=== PATIENT | male | born 1965 | race Hispanic/Latino ===

== ENCOUNTER 2016-09-28 14:57 | Inpatient (IN) | payer MEDICARE, OTHER ==
--- NOTE | 2016-09-28 15:40 | C.PDOC ---
History Of Present Illness 51 y/o male presents to the ED requesting heroin detox. 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 Pt has been using for the past couple years 10-15 bags per day. Last use was this am. Denies pmhx with exception of orthopedic surgeries. Denies fever, vomiting, chest pain, SOB or any other complaints. Time Seen by Provider: 09/28/16 15:10 Chief Complaint (Nursing): Substance Abuse History Per: Patient History/Exam Limitations: no limitations Suicide/Self Injury Attempted (Context): None Modifying Factor(s): Narcotics Severity: Mild Involuntary Hold By: None Recent travel outside of the [place]: No Past Medical History Reviewed: Historical Data, Nursing Documentation, Vital Signs Vital Signs: Last Vital Signs Temp 97.5 F L 09/28/16 15:05 Pulse 71 09/28/16 15:05 Resp 16 09/28/16 15:05 BP 143/76 09/28/16 15:05 Pulse Ox 97 09/28/16 17:33 Family History: States: Unknown Family Hx - Social History Hx Alcohol Use: No Hx Substance Use: Yes - Immunization History Hx Tetanus Toxoid Vaccination: No Hx Influenza Vaccination: No Hx Pneumococcal Vaccination: No Review Of Systems Except As Marked, All Systems Reviewed And Found Negative. Constitutional: Negative for: Fever Cardiovascular: Negative for: Chest Pain Respiratory: Negative for: Shortness of Breath Gastrointestinal: Negative for: Vomiting Physical Exam - Physical Exam Appears: Non-toxic, No Acute Distress Skin: Warm, Dry, No Rash Head: Atraumatic, Normacephalic Nose: Normal Neck: Normal ROM, Supple Chest: Symmetrical Cardiovascular: Rhythm Regular, No Murmur Respiratory: Normal Breath Sounds, No Rales, No Rhonchi, No Wheezing Gastrointestinal/Abdominal: Soft Extremity: Bilateral: Atraumatic Neurological/Psych: Oriented x3 ED Course And Treatment - Laboratory Results Result Diagrams: 09/28/16 15:44 09/28/16 15:44 Lab Interpretation: Normal O2 Sat by Pulse Oximetry: 97 (on room air) Pulse Ox Interpretation: Normal Progress Note: Plan: labs, UDS; medically clear for detox admission. Case discussed and patient evaluated by crisis who discussed with Dr Calle and accepts for detox Reassessment Condition: Unchanged - Physician Consult Information Physician Contacted: Linette Calle Outcome Of Conversation: admit to detox Disposition Doctor Will See Patient In The: Hospital Counseled Patient/Family Regarding: Studies Performed, Diagnosis, Need For Followup - Disposition Disposition: HOSPITALIZED Disposition Time: 17:50 Condition: STABLE - POA Present On Arrival: None - Clinical Impression Clinical Impression: Drug abuse, Opioid abuse with opioid-induced disorder - PA / SAMPLE COLLECTOR / Resident Statement MD/DO has reviewed & agrees with the documentation as recorded. - Scribe Statement The provider has reviewed the documentation as recorded by the Abdiazizibsuhas Mistry All medical record entries made by the Abdiazizibsuhas were at my direction and personally dictated by me. I have reviewed the chart and agree that the record accurately reflects my personal performance of the history, physical exam, medical decision making, and the department course for this patient. I have also personally directed, reviewed, and agree with the discharge instructions and disposition. Decision To Admit - Pt Status Changed To: Hospital Disposition Of: Inpatient - Admit Certification Admit to Inpatient:: After my assessment, the patient will require hospitalization for at least two midnights. This is because of the severity of symptoms shown, intensity of services needed, and/or the medical risk in this patient being treated as an outpatient. - InPatient: Physician Admission Certification: I certify that this patient requires 2 or more midnights of care for the following reason:: Opioid abuse disorder - . Bed Request Type: Detox Admitting Physician: Linette Calle Patient Diagnosis: Drug abuse
[2016-09-28 15:41] LABS: URINE BILIRUBIN NEGATIVE (NEGATIVE); URINE BLOOD NEGATIVE (NEGATIVE); URINE COLOR Yellow (YELLOW); URINE GLUCOSE (UA) NORMAL (Normal); URINE KETONE NEGATIVE (NEGATIVE); URINE LEUKOCYTE ESTERASE NEG Leu/uL (Negative); URINE PROTEIN NEGATIVE (NEGATIVE); URINE UROBILINOGEN NORMAL mg/dL (0.2-1.0); WBC URINE 2 /hpf (0-5)
[2016-09-28 15:47] LABS: BASO # 0.1 K/uL (0.0-0.2); BASO % 1.1 % (0.0-2.0); EOS # 0.2 K/uL (0.0-0.7); EOS % 2.5 % (0.0-4.0); HEMATOCRIT 45.5 % (35.0-51.0); LYMPH # 2.5 K/uL (1.0-4.3); LYMPH % 25.3 % (20.0-40.0); MEAN CELL VOLUME 89.9 fL (80.0-94.0); MEAN CORPUSCULAR HEMOGLOBIN 30.4 pg (27.0-31.0); MEAN CORPUSCULAR HGB CONC 33.8 g/dL (33.0-37.0); MEAN PLATELET VOLUME 8.2 fL (7.2-11.7); MONO # 0.8 K/uL (0.0-0.8); MONO % 7.7 % (0.0-10.0); NRBC % 0.2 % (0.0-2.0); RED CELL DISTRIBUTION WIDTH 14.3 % (11.5-14.5); WHITE BLOOD COUNT 10.1 K/uL (4.8-10.8)
[2016-09-28 15:55] LABS: CHLORIDE 97 mmol/L (98-107); POTASSIUM 3.8 mmol/L (3.6-5.2); SODIUM 138 mmol/L (132-148)
[2016-09-28 15:57] LABS: BILIRUBIN,TOTAL 0.6 mg/dL (0.2-1.3); GFR AFRICAN-AMERICAN > 60
[2016-09-28 15:58] LABS: ALB/GLOB RATIO 1.2 (1.0-2.1); ALKALINE PHOSPHATASE 66 U/L (38-126); ALT/SGPT 31 U/L (21-72); AST/SGOT 24 U/L (17-59); BLOOD UREA NITROGEN 24 mg/dL (9-20); CALCIUM 8.7 mg/dl (8.6-10.4); CARBON DIOXIDE 26 mmol/L (22-30); GLUCOSE,RANDOM 108 mg/dL (75-110); TOTAL PROTEIN 7.8 g/dL (6.3-8.3)
[2016-09-28 15:59] LABS: ALCOHOL SERUM < 10 mg/dl (0-10)
[2016-09-28] MEDS ORDERED: Buprenorphine Hydrochloride 2 mg SL ONE ×2 (19:15→20:40)
[2016-09-28] MEDS ORDERED: Aluminum Hydroxide/Magnesium Hydroxide Susp (30 mL) PO PRN (19:16)
[2016-09-28] MEDS ORDERED: Benzocaine/Menthol (Cepacol) Lozenge PO PRN (23:08)
[2016-09-29] MEDS ORDERED: Buprenorphine Hydrochloride 2 mg SL SCH (10:00)
--- NOTE | 2016-09-29 11:10 | PCM.PSYCH ---
Initial Psychiatric Evaluation - Initial Psychiatric Evaluation Type of Admission: Voluntary Legal Status: Capacity Chief Complaint (in patient's own words): "Not feeling well" History of Present Illness and Precipitating Events: The patient is seen, chart reviewed and case discussed. This is a 51-year-old male, with 3 children aged 34, 27 and 14 who is with his mother. The patient is on disability since 2009 due to an accident. He had hip replacement and shoulder replacement. He lives with his fiance. He admits to using up to 16 bags of heroin intravenously for the last 2 years. Before that he was abusing painkillers since 2009. This is his first detox and he has never been to rehabilitation. He denies all other drugs except for cigarettes which she smokes 1 pack per day. 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 He goes to . Past psych history: He had one admission in 2004 after his divorce when he OD' ed. He says he is still depressed as he sleeps poorly and feels low. However, he denies Si and he has no manic or psychotic sxs. Family psych history: Sister uses opioids and she is depressed. His brother OD' ed and from alcohol pills and cocaine. Medical history: Pain syndrome Current Medications: Active Medications Generic Name Dose Route Start Last Admin Trade Name Bernabe PRN Reason Stop Dose Admin Acetaminophen 650 mg 09/28/16 23:08 Tylenol 325mg Tab PO Q4H PRN Fever greater than 101 F Al Hydrox/Mg Hydrox/Simethicone 30 ml 09/28/16 19:16 Maalox 30 Ml PO Q6 PRN Indigestion / Heartburn Benzocaine/Menthol 1 milton 09/28/16 23:08 Cepacol Sore Throat PO QID PRN Sore Throat Buprenorphine HCl 6 mg 09/29/16 10:00 09/29/16 09:24 Subutex SL 10/02/16 09:59 6 mg DAILY MORENA Administration Taper Clonidine HCl 0.1 mg 09/28/16 19:19 Catapres PO Q8 PRN opiate withdrawal Hydroxyzine HCl 25 mg 09/28/16 19:20 Atarax PO Q6 PRN Anxiety Ibuprofen 600 mg 09/28/16 19:17 Motrin Tab PO Q6 PRN pain Loperamide HCl 2 mg 09/28/16 23:08 Imodium PO Q8 PRN Diarrhea Nicotine 1 patch 09/29/16 10:00 09/29/16 09:24 Nicoderm Cq TD Not Given DAILY MORENA Ondansetron HCl 4 mg 09/28/16 23:08 Zofran Tab PO Q8 PRN Nausea/Vomiting Trazodone HCl 50 mg 09/28/16 19:18 Desyrel PO HS PRN insomnia Past Psychiatric History - Past Psychiatric History Previous Treatment History: Inpatient Pertinent Medical Hx (Current Medical&Sleep Prob, Allergies): Allergies Allergy/AdvReac Type Severity Reaction Status Date / Time No Known Allergies Allergy Verified 09/28/16 15:07 No Known Home Med 09/28/16 Review of Systems - Neurological Neurological: UNREMARKABLE - Psychiatric Psychiatric: Abnormal Sleep Pattern, Anhedonia, Anxiety, Depression, Difficulty Concentrating. absent: Auditory Hallucinations, Hallucinations, Homicidal Ideation, Paranoia, Suicidal Ideation Mental Status Examination - Personal Presentation Personal Presentation: Looks older than stated age - Affect Affect: Constricted - Motor Activity Motor Activity: Calm - Reliability in Providing Information Reliability in Providing Information: Good - Speech Speech: Organized - Mood Mood: Depressed, Anxious - Formal Thought Process Formal Thought Process: No Impairment - Cognitive Functions Orientation: Person, Place, Situation, Time Sensorium: Alert Attention/Concentration: Attentive Estimate of Intelligence: Average Judgement: Intact, as evidence by: Insight regarding need for hospitalization Memory: Recent intact, as evidence by: Ability to recall events of the day, Remote intact, as evidenced by: Abilit to recall sig. life events - Risk Risk: Withdrawal, Diminished functioning - Strength & Assets Inventory Strength & Assets Inventory: Cooperative - Limitations Limitations: Living alone DSM 5 DX - DSM 5 DSM 5 Diagnosis: Primary: OPioid withdrawal Opioid use d/o -sveere Nicotine use d/o - severe MDD - recurrent, moderate - Recommended/Plan of Treatment Treatment Recommendations and Plan of Treatment: Opioids: -Subutex detox -As needed medications -Support and psychoeducation -PR for abstinence -Attend groups and activities Depression: -Cymbalta which also helps pain -CBT and supportive therapy Nicotine: -Patient refusing patch -PR for abstinence 34 minutes Projected ELOS: 5 days Prognosis: Good with treatment Discharge Plan and Discharge Criteria: No wdw sxs refer to IOP - Smoking Cessation Smoking Cessation Initiated: Yes
[2016-09-29] MEDS ORDERED: Buprenorphine Hydrochloride 2 mg SL ONE (11:15)
[2016-09-30] MEDS: Buprenorphine Hydrochloride 2 mg SL SCH (10:01)
--- NOTE | 2016-09-30 13:06 | PCM.PYCHPN ---
Psychiatric Progress Note - Psychiatric Progress Note Patient seen today, length of contact: 17 min Patient Chief Complaint: still having withdrawal symptoms Problems Identified/Issues Discussed: Patient seen and evaluated, chart reviewed and discussed with the nurse. The patient reports depressed mood and still reports withdrawal symptoms including anxiety, sweating, back pain and headaches. Patient reports anxiety and irritability but denies any suicidal ideation or homicidal ideation. Patient is taking medications and denies any side effects. Supportive therapy and psychoeducation were given. Medication Change: Yes (Subutex taper) Medical Record Reviewed: Yes Mental Status Examination - Cognitive Function Orientation: Person, Place, Situation, Time Memory: Intact Attention: WNL Concentration: Poor Association: WNL Fund of Knowledge: Poor - Mood Mood: Depressed, Anxious - Affect Affect: Constricted - Speech Speech: Soft - Formal Thought Process Formal Thought Process: No Impairment - Suicidal Ideation Suicidal Ideation: No - Homicidal Ideation Homicidal Ideation: No Goal/Treatment Plan - Goal/Treatment Plan Need for Continued Stay: Discharge may exacerbated symptoms, Severe functional impairment Progress Toward Problem(s) and Goals/Treatment Plan: Primary: OPioid withdrawal Opioid use d/o -sveere Nicotine use d/o - severe MDD - recurrent, moderate Opioids: -Subutex detox -As needed medications -Support and psychoeducation -NC for abstinence -Attend groups and activities Depression: -Cymbalta which also helps pain -CBT and supportive therapy Nicotine: -Patient refusing patch -NC for abstinence - Smoking Cessation Smoking Cessation Initiated: Yes
[2016-10-01] MEDS ORDERED: Magnesium Hydroxide Susp 30 ml UD PO ONE (08:45)
[2016-10-01] MEDS: Buprenorphine Hydrochloride 2 mg SL SCH (09:36)
[2016-10-01] MEDS ORDERED: Bisacodyl 5mg EC Tab PO ONE (12:12)
--- NOTE | 2016-10-01 12:15 | PCM.PYCHPN ---
Psychiatric Progress Note - Psychiatric Progress Note Patient seen today, length of contact: 15 minutes Patient Chief Complaint: I'm feeling much better but I have constipation. Problems Identified/Issues Discussed: Patient seen. Chart reviewed. Case discussed with the staff. Issues related to illness and treatment were discussed with the patient. Patient reported compliant with treatment with no adverse affects. Tolerating treatment very well. Feels much better. Reported having constipation. At the time of evaluation , patient was awake alert oriented 3, had no delusions, no auditory or visual hallucinations, no suicidal ideations or homicidal ideations. Medical Problems: None Diagnostic Results: Reviewed DSM 5 Symptoms Update: Improving with treatment Medication Change: No Medical Record Reviewed: Yes Mental Status Examination - Cognitive Function Orientation: Person, Place, Situation, Time Memory: Intact Attention: WNL Concentration: WNL Association: WNL Fund of Knowledge: [facility] Decription of patient's judgement and insights: Fair - Mood Mood: Neutral - Affect Affect: Other (Appropriate) - Speech Speech: Appropriate - Formal Thought Process Formal Thought Process: No Impairment Psychotic Thoughts and Behaviors: None - Suicidal Ideation Suicidal Ideation: No - Homicidal Ideation Homicidal Ideation: No Goal/Treatment Plan - Goal/Treatment Plan Need for Continued Stay: Remain at risks for inpatient hospitalization, Discharge may exacerbated symptoms, Severe functional impairment Progress Toward Problem(s) and Goals/Treatment Plan: Improving with treatment Patient education Supportive therapy Continue treatment as before Dulcolax for constipation Estimated Date of D/C: 10/03/16 - Smoking Cessation Smoking Cessation Initiated: Yes
[2016-10-02] MEDS: Buprenorphine Hydrochloride 2 mg SL SCH (09:07)
[2016-10-02] MEDS ORDERED: Magnesium Hydroxide Susp 30 ml UD PO ONE ×2 (16:14)
[2016-10-02] MEDS ORDERED: Bisacodyl 5mg EC Tab PO ONE (16:14)
--- NOTE | 2016-10-02 16:14 | PCM.PYCHPN ---
Psychiatric Progress Note - Psychiatric Progress Note Patient seen today, length of contact: 15 minutes Patient Chief Complaint: I'm feeling much better but I still have constipation. Problems Identified/Issues Discussed: Patient seen. Chart reviewed. Case discussed with the staff. Issues related to illness and treatment were discussed with the patient. Patient reported compliant with treatment with no adverse affects. Tolerating treatment very well. Feels much better. Reported still having constipation. Will repeat the dose again today. At the time of evaluation, patient was awake alert oriented 3 , had no delusions, no auditory or visual hallucinations, no suicidal ideations or homicidal ideations. Medical Problems: None Diagnostic Results: Reviewed DSM 5 Symptoms Update: Improving with treatment Medication Change: No Medical Record Reviewed: Yes Mental Status Examination - Cognitive Function Orientation: Person, Place, Situation, Time Memory: Intact Attention: WNL Concentration: WNL Association: WNL Fund of Knowledge: [facility] Decription of patient's judgement and insights: Fair - Mood Mood: Neutral - Affect Affect: Other (Appropriate) - Speech Speech: Appropriate - Formal Thought Process Formal Thought Process: No Impairment Psychotic Thoughts and Behaviors: None - Suicidal Ideation Suicidal Ideation: No - Homicidal Ideation Homicidal Ideation: No Goal/Treatment Plan - Goal/Treatment Plan Need for Continued Stay: Remain at risks for inpatient hospitalization, Discharge may exacerbated symptoms, Severe functional impairment Progress Toward Problem(s) and Goals/Treatment Plan: Improving with treatment Patient education Supportive therapy Continue treatment as before Dulcolax for constipation Also milk of magnesia Estimated Date of D/C: 10/03/16 - Smoking Cessation Smoking Cessation Initiated: Yes
[2016-10-02 19:50] VITALS: RESP 18
[2016-10-02] MEDS ORDERED: Magnesium Citrate Oral SOL (300 ml) PO ONE (20:25)
[2016-10-03 06:07] VITALS: BP 123/78; PULSE 56; TEMP 98.1; O2SAT 98
--- NOTE | 2016-10-03 11:34 | PCM.PYCHDC ---
Mental Status Examination - Mental Status Examination Orientation: Person, Place, Situation, Time Memory: Intact Mood: Neutral Affect: Other (Appropriate) Speech: Appropriate Attention: WNL Concentration: WNL Association: WNL Fund of Knowledge: WNL Formal Thought Process: No Impairment Description of patient's judgement and insight: Fair Psychotic Thoughts and Behaviors: None Suicidal Ideation: No Current Homicidal Ideation?: No Discharge Summary - Discharge Note Reason for Hospitalization: Opiate use Depression Psychiatric History (includes Medical, Family, Personal Hx): Opiate use, major depressive disorder Laboratory Data: Reviewed Consultations:: List each consultation separately and include: 1. Reason for request. 2. Findings. 3. Follow-up Summary of Hospital Course include:: 1. Description of specific treatment plan utilized for patients during their course of treatmen. 2. Summarize the time- course for resolution of acute symptoms and/or regressed behaviors. 3. Describe issues identified and worked on during hospitalization. 4. Describe medication utilized. 5. Describe medical problems identified and treated. 6. Reassessment of suicide risk Summary of Hospital Course: The patient is seen, chart reviewed and case discussed. This is a 51-year-old male, with 3 children aged 34, 27 and 14 who is with his mother. The patient is on disability since 2009 due to an accident. He had hip replacement and shoulder replacement. He lives with his fiance. He admits to using up to 16 bags of heroin intravenously for the last 2 years. Before that he was abusing painkillers since 2009. This is his first detox and he has never been to rehabilitation. He denies all other drugs except for cigarettes which she smokes 1 pack per day. 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 He goes to . Past psych history: He had one admission in 2004 after his divorce when he OD' ed. He says he is still depressed as he sleeps poorly and feels low. However, he denies Si and he has no manic or psychotic sxs. During his stay in the hospital, patient was treated with Subutex and other when necessary medications. Patient was also started on Cymbalta and trazodone. With the above treatment patient started feeling better with no adverse affects of the treatment and no withdrawal symptoms. Today patient was stable and was ready for discharge. At the time of evaluation and discharge, patient was awake alert oriented 3, had no delusions, no auditory or visual hallucinations, no suicidal ideations or homicidal ideations. Patient was discharged in a stable condition. Patient will go to [facility] outpatient clinic for follow-up care. - Final Diagnosis (DSM 5) Condition upon Discharge: STABLE Disposition: HOME/ ROUTINE Follow-up Treatment Plan: Patient will go to [facility] outpatient for follow-up care Prescriptions/Medication Reconciliation: DULoxetine [Cymbalta] 30 mg PO DAILY #30 ecc traZODone [Desyrel] 100 mg PO HS PRN #30 tab PRN Reason: insomnia - Smoking Cessation Smoking Cessation Medication prescribed: No - Antipsychotic Medications Pt discharged on 2 or more routine antipsychotic medications: No
== END 2016-10-03 08:07 | disposition home or self-care (01) | DRG 895 ==
LOC: C.ER 14:57 → C.7D 17:31
PROVIDERS: ADMIT Psychiatry & Neurology Psychiatry; ATTEND Psychiatry & Neurology Psychiatry
PROC: HZ2ZZZZ Detoxification Services for Substance Abuse Treatment (ICD-10-PCS; principal; 2016-09-28)
PROC: HZ46ZZZ Group Counseling for Substance Abuse Treatment, Psychoeducation (ICD-10-PCS; 2016-09-28)
PROC: GZ3ZZZZ Medication Management (ICD-10-PCS; 2016-09-28)
DX: F11.23 Opioid dependence with withdrawal (principal); F33.1 Major depressive disorder, recurrent, moderate; F17.210 Nicotine dependence, cigarettes, uncomplicated; G89.4 Chronic pain syndrome; Z96.619 Presence of unspecified artificial shoulder joint; Z96.649 Presence of unspecified artificial hip joint

== ENCOUNTER 2017-08-18 15:43 | Inpatient (IN) | payer MEDICARE ==
[2017-08-18] MEDS ORDERED: Sodium Chloride 0.9% 1,000 ML IV STA (17:14)
--- NOTE | 2017-08-18 17:15 | C.PDOC ---
History Of Present Illness 52 year old male presents to ED for evaluation of left 2nd toe pain, and swelling after stubbing his left foot 3 weeks ago. Denies change in sensation, extremity weakness, numbness, or fever. Time Seen by Provider: 08/18/17 16:46 Chief Complaint (Nursing): Lower Extremity Problem/Injury History Per: Patient History/Exam Limitations: no limitations Onset/Duration Of Symptoms: Days Current Symptoms Are (Timing): Still Present Recent travel outside of the [place]: No Additional History Per: Patient Past Medical History Reviewed: Historical Data, Nursing Documentation, Vital Signs Vital Signs: Last Vital Signs Temp 98 F 08/18/17 16:15 Pulse 75 08/18/17 16:15 Resp 18 08/18/17 16:15 BP 112/75 08/18/17 16:15 Pulse Ox 98 08/18/17 18:08 - Medical History PMH: Denies: Diabetes, Hepatitis, HIV, HTN, Seizures, Sexually Transmitted Disease - [facility] Procedures DETOXIFICATION SERVICES FOR SUBSTANCE ABUSE TREATMENT (09/28/16) GROUP WORKDAY MANAGER FOR SUBSTANCE ABUSE TREATMENT, PSYCHOEDUCATION (09/28/16) MEDICATION MANAGEMENT (09/28/16) Family History: States: Unknown Family Hx - Social History Hx Alcohol Use: No Hx Substance Use: Yes - Immunization History Hx Tetanus Toxoid Vaccination: No Hx Influenza Vaccination: No Hx Pneumococcal Vaccination: No Review Of Systems Except As Marked, All Systems Reviewed And Found Negative. Constitutional: Negative for: Fever, Chills Musculoskeletal: Positive for: Foot Pain (left) Neurological: Negative for: Weakness, Numbness Physical Exam - Physical Exam Appears: Non-toxic, No Acute Distress, Unkempt Skin: Warm, Dry Head: Atraumatic, Normacephalic Eye(s): bilateral: Normal Inspection Oral Mucosa: Moist Extremity: Normal ROM, Tenderness (left 2nd toe), Capillary Refill (less than 2 seconds), No Deformity, Swelling (left 2nd toe), Other (open ulcer to distal phalanx of left 2nd toe with erythema and swelling, and also noted dirt) Pulses: Left Dorsalis Pedis: Normal, Right Dorsalis Pedis: Normal Neurological/Psych: Oriented x3, Normal Speech ED Course And Treatment - Laboratory Results Result Diagrams: 08/18/17 17:59 08/18/17 17:59 O2 Sat by Pulse Oximetry: 98 (RA) Pulse Ox Interpretation: Normal - Radiology CXR: Interpreted by Me CXR Interpretation: Yes: No Acute Disease - Other Rad left foot X-Ray: Interpreted by Me Interpretation: distal phalanx of the left 2nd toe with bone distraction consitant with Osteomyelitis. Progress Note: Blood work, UA, left foot x-ray, CXR ordered and reviewed. Pt was given IV fluids and Vanco IV. case was d/w who covers for 's patients. Patient was accepted for an admission. 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 - Scribe Statement The provider has reviewed the documentation as recorded by the Scribe Jn Newton All medical record entries made by the Scribe were at my direction and personally dictated by me. I have reviewed the chart and agree that the record accurately reflects my personal performance of the history, physical exam, medical decision making, and the department course for this patient. I have also personally directed, reviewed, and agree with the discharge instructions and disposition. Decision To Admit - Pt Status Changed To: Hospital Disposition Of: Inpatient - Admit Certification Admit to Inpatient:: After my assessment, the patient will require hospitalization for at least two midnights. This is because of the severity of symptoms shown, intensity of services needed, and/or the medical risk in this patient being treated as an outpatient. - InPatient: Physician Admission Certification: I certify that this patient requires 2 or more midnights of care for the following reason:: Patient will need IV antibiotics for more than 2 days. - . Bed Request Type: Regular Patient Diagnosis: Foot ulcer, left, Osteomyelitis of toe of left foot
[2017-08-18 18:02] LABS: BASO % 0.5 % (0.0-2.0); EOS # 0.1 K/uL (0.0-0.7); EOS % 1.4 % (0.0-4.0); HEMOGLOBIN 14.6 g/dL (12.0-18.0); LYMPH # 1.6 K/uL (1.0-4.3); LYMPH % 17.7 % (20.0-40.0); MEAN CELL VOLUME 89.4 fL (80.0-94.0); MEAN CORPUSCULAR HEMOGLOBIN 30.9 pg (27.0-31.0); MEAN CORPUSCULAR HGB CONC 34.6 g/dL (33.0-37.0); MEAN PLATELET VOLUME 8.5 fL (7.2-11.7); MONO # 0.5 K/uL (0.0-0.8); MONO % 5.1 % (0.0-10.0); NEUT # 6.7 K/uL (1.8-7.0); NEUT % 75.3 % (50.0-75.0); RBC 4.73 Mil/uL (4.40-5.90); RED CELL DISTRIBUTION WIDTH 14.4 % (11.5-14.5); WHITE BLOOD COUNT 8.9 K/uL (4.8-10.8)
[2017-08-18] MEDS ORDERED: Vancomycin 1 GM 1 GM/250 ML BAG IV STA (18:09)
[2017-08-18 18:12] LABS: INR 1.2; PROTHROMBIN TIME 13.2 SECONDS (9.7-12.2)
--- NOTE | 2017-08-18 18:14 | RAD ---
PROCEDURE: CHEST RADIOGRAPH, 1 VIEW HISTORY: infection COMPARISON: None. FINDINGS: LUNGS: No active pulmonary disease. Multiple tiny granuloma identified. PLEURA: No pneumothorax or pleural fluid seen. CARDIOVASCULAR: Normal. OSSEOUS STRUCTURES: No significant abnormalities. VISUALIZED UPPER ABDOMEN: Normal. OTHER FINDINGS: None. IMPRESSION: No active disease.
[2017-08-18 18:15] LABS: ALB/GLOB RATIO 1.1 (1.0-2.1); ALBUMIN 3.8 g/dL (3.5-5.0); ALT/SGPT 149 U/L (21-72); AST/SGOT 96 U/L (17-59); BLOOD UREA NITROGEN 14 mg/dL (9-20); GFR AFRICAN-AMERICAN > 60; GFR NON-AFRICAN AMERICAN > 60
[2017-08-18] MEDS ORDERED: Sodium Chloride 0.9% 1,000 ML ONE (18:23)
[2017-08-18 18:44] LABS: SQUAMOUS EPITHIAL < 1 /hpf (0-5); URINE BILIRUBIN NEGATIVE (NEGATIVE); URINE BLOOD NEGATIVE (NEGATIVE); URINE CLARITY Clear (Clear); URINE COLOR Amber (YELLOW); URINE GLUCOSE (UA) NORMAL (Normal); URINE LEUKOCYTE ESTERASE NEG Leu/uL (Negative); URINE NITRATE NEGATIVE (NEGATIVE); URINE PROTEIN 1+ mg/dL (NEGATIVE)
[2017-08-18 18:58] LABS: BARBITURATES, UR NEGATIVE (NEGATIVE); BENZODIAZEPINES, UR NEGATIVE (NEGATIVE); OPIATES, UR POSITIVE (NEGATIVE); PHENCYCLIDINE, UR NEGATIVE (NEGATIVE)
[2017-08-18] MEDS ORDERED: Vancomycin 1 gm/NS 200 ml 1 GM/200 ML BAG IVPB ONE (19:00)
[2017-08-18] MEDS ORDERED: Vancomycin 1 GM 1 GM/250 ML BAG IVPB ONE (19:00)
[2017-08-18] MEDS: Oxycodone/Acetaminophen 5/325 mg Tab PO PRN (21:19)
[2017-08-18] MEDS: Piperacill/Tazo 3.375gm in Dex 3.375 GM/50 ML BAG IVPB SCH (21:49)
[2017-08-19] MEDS: Piperacill/Tazo 3.375gm in Dex 3.375 GM/50 ML BAG IVPB SCH ×3 (05:44→21:42)
[2017-08-19] MEDS: Oxycodone/Acetaminophen 5/325 mg Tab PO PRN ×4 (05:49→21:49)
[2017-08-19] MEDS: Vancomycin 1 gm/NS 200 ml 1 GM/200 ML BAG IVPB SCH ×2 (08:55→19:32)
[2017-08-19] MEDS: Enoxaparin 40 mg Syringe SC SCH (10:04)
--- NOTE | 2017-08-19 12:41 | RAD ---
PROCEDURE: Left foot dated in 08/18/2017. . HISTORY: Infection. COMPARISON: No prior study available for comparison FINDINGS: BONES: The current study reveals what is felt to represent destructive changes -osteomyelitis of the distal tuft distal phalanx 2nd digit with surrounding soft tissue swelling that extends proximally to approximately the level of the MTP joint. . There is a small plantar surface enthesophyte. JOINTS: Mild DJD level first MTP joint SOFT TISSUES: Normal. OTHER FINDINGS: None. IMPRESSION: Destructive changes -osteomyelitis of the distal tuft distal phalanx 2nd digit with surrounding soft tissue swelling that extends proximally to approximately the level of the MTP joint. . Note that this report was placed in PA review folder for followup.
--- NOTE | 2017-08-19 17:31 | CP.PCM.CON ---
History of Present Illness - History of Present Illness History of Present Illness: Podiatry Consult Note-Dr. Croft 52 y.o male seen at bedside for 2nd and 3rd toe pain. 2nd toe pain > 3rd toe pain. Patient reports that 3 weeks ago he stub his foot. He reports seeing his toe being black and blue so he started soaking his foot in water and Epsom salt. He reports days later he noticed swelling at the ankle and drainage to the 2nd left toe a few days later. Today he denies n/v/sob/cp/chills or f. PMH: reports had endocarditis in the past from unknown source per pt; reports got his sugar tested and was negative for DM PSH: bilateral hip replacement and left finger surgery SH: 1ppd 40 years, current heroine user, denies EtOh use FH: mother- DM, father- heart disease, liver and lung cancer ALL: NKDA MEDS: see meds list Past Patient History - Past Medical History & Family History Past Medical History?: Yes - Past Social History Smoking Status: Heavy Smoker > 10 Cigarettes Daily - CARDIAC Hx Hypertension: No - PULMONARY Hx Tuberculosis: No - NEUROLOGICAL Hx Seizures: No - HEMATOLOGICAL/ONCOLOGICAL Hx Human Immunodeficiency Virus (HIV): No - MUSCULOSKELETAL/RHEUMATOLOGICAL Hx Falls: No Other/Comment: per pt he has a bone degeration disorder unable to name it - GENITOURINARY/GYNECOLOGICAL Hx Sexually Transmitted Disorders: No - PSYCHIATRIC Hx Substance Use: Yes - SURGICAL HISTORY Hx Musculoskeletal Surgery: Yes (2 hip replacemnts 2009 2012) - ANESTHESIA Hx Anesthesia: Yes Hx Anesthesia Reactions: No Hx Malignant Hyperthermia: No Meds Allergies/Adverse Reactions: Allergies Allergy/AdvReac Type Severity Reaction Status Date / Time No Known Allergies Allergy Verified 08/18/17 16:24 - Medications Medications: Current Medications Enoxaparin Sodium (Lovenox) 40 mg SC DAILY [facility] Last Admin: 08/19/17 10:04 Dose: 40 mg Piperacillin Sod/Tazobactam Sod (Zosyn 3.375 Gm Iv Premix) 3.375 gm in 50 mls @ 100 mls/hr IVPB Q8H [facility] Last Admin: 08/19/17 13:58 Dose: 100 mls/hr Vancomycin/Sodium Chloride (Vancomycin 1 Gm/Ns 200 Ml) 1 gm in 200 mls @ 133.333 mls/hr IVPB Q12H [facility] Stop: 08/24/17 08:01 Last Admin: 08/19/17 08:55 Dose: 133.333 mls/hr Oxycodone/Acetaminophen (Percocet 5/325 Mg Tab) 1 tab PO Q6H PRN PRN Reason: Pain, moderate (4-7) Stop: 08/21/17 21:12 Last Admin: 08/19/17 12:29 Dose: 1 tab Oxycodone/Acetaminophen (Percocet 5/325 Mg Tab) 1 tab PO Q4H PRN PRN Reason: Pain, severe (8-10) Stop: 08/22/17 17:15 Physical Exam - Constitutional Appears: Well, Non-toxic, No Acute Distress - Extremities Exam Extremities exam: Negative for: tenderness Additional comments: Vasc: DP and PT 2/4 bilaterally, CFT < 3 seconds to the digits, edema noted to the left foot 2nd and 3rd digit and forefoot Ortho: severe pain with palpation to the entire 2nd and moderate pain to the 3rd digit Neuro: gross intact and protective sensation diminished Derm: ulceration noted to the distal tip of the left 2nd digit measuring approximately 2 cm circumferentially x .1 cm, erythema noted to the 2nd digit, odor noted from the ulceration, no purulence at the time of visitation, no active drainage, no tunneling or undermining noted, no probe to bone. - Neurological Exam Neurological exam: Alert, Oriented x3 - Psychiatric Exam Psychiatric exam: Normal Affect, Normal Mood Results - Vital Signs Recent Vital Signs: Last Vital Signs Temp 98.3 F 08/19/17 16:00 Pulse 62 08/19/17 16:00 Resp 20 08/19/17 16:00 BP 120/56 L 08/19/17 16:00 Pulse Ox 100 08/19/17 16:00 - Labs Result Diagrams: 08/18/17 17:59 08/18/17 17:59 Labs: Laboratory Results - last 24 hr 08/18/1718 08/18/17 17:59 17:59 17:59 WBC 8.9 RBC 4.73 Hgb 14.6 Hct 42.3 MCV 89.4 MCH 30.9 MCHC 34.6 RDW 14.4 Plt Count 249 MPV 8.5 Neut % (Auto) 75.3 H Lymph % (Auto) 17.7 L [place] % (Auto) 5.1 Eos % (Auto) 1.4 Baso % (Auto) 0.5 Neut # (Auto) 6.7 Lymph # (Auto) 1.6 [place] # (Auto) 0.5 Eos # (Auto) 0.1 Baso # (Auto) 0.0 PT 13.2 H INR 1.2 APTT 35 H Sodium 140 Potassium 3.9 Chloride 104 Carbon Dioxide 26 Anion Gap 13 BUN 14 Creatinine 0.7 L Est GFR ( Amer) > 60 Est GFR (Non-Af Amer) > 60 Random Glucose 129 H Calcium 9.0 Total Bilirubin 1.0 AST 96 H ALT 149 H D Alkaline Phosphatase 98 Total Protein 7.2 Albumin 3.8 Globulin 3.4 Albumin/Globulin Ratio 1.1 Urine Color Urine Clarity Urine pH Ur Specific [place] Urine Protein Urine Glucose (UA) Urine Ketones Urine Blood Urine Nitrate Urine Bilirubin Urine Urobilinogen Ur Leukocyte Esterase Urine WBC (Auto) Urine RBC (Auto) Ur Squamous Epith Cells Urine Opiates Screen Urine Methadone Screen Ur Barbiturates Screen Ur Phencyclidine Scrn Ur Amphetamines Screen U Benzodiazepines Scrn U Oth Cocaine Metabols U Cannabinoids Screen 08/18/17 08/18/17 18:29 18:29 WBC RBC Hgb Hct MCV MCH MCHC RDW Plt Count MPV Neut % (Auto) Lymph % (Auto) [place] % (Auto) Eos % (Auto) Baso % (Auto) Neut # (Auto) Lymph # (Auto) [place] # (Auto) Eos # (Auto) Baso # (Auto) PT INR APTT Sodium Potassium Chloride Carbon Dioxide Anion Gap BUN Creatinine Est GFR ( Amer) Est GFR (Non-Af Amer) Random Glucose Calcium Total Bilirubin AST ALT Alkaline Phosphatase Total Protein Albumin Globulin Albumin/Globulin Ratio Urine Color [place] Urine Clarity Clear Urine pH 7.0 Ur Specific [place] 1.023 Urine Protein 1+ H Urine Glucose (UA) Normal Urine Ketones Trace Urine Blood Negative Urine Nitrate Negative Urine Bilirubin Negative Urine Urobilinogen 4.0 Ur Leukocyte Esterase Neg Urine WBC (Auto) 1 Urine RBC (Auto) < 1 Ur Squamous Epith Cells < 1 Urine Opiates Screen Positive H Urine Methadone Screen Negative Ur Barbiturates Screen Negative Ur Phencyclidine Scrn Negative Ur Amphetamines Screen Negative U Benzodiazepines Scrn Negative U Oth Cocaine Metabols Positive H U Cannabinoids Screen Negative Assessment & Plan - Assessment and Plan (Free Text) Assessment: 2 y.o male seen at bedside for infected 2nd digit ulceration + OM and 3rd toe pain Plan: Patient examined and evaluated Discussed plan in detail with attending Dr. Croft Labs, charts, vitals reviewed (afebrile, absent leukocytosis) X-rays- Impression destructive changes- OM of distal tuft distal phalanx 2nd digit L Wound culture left foot taken (08/18/17)- pending results Continue IV abx per ID: Vancomycin and Zosyn Arterial duplex pending results Ordered bone scan pending results Cleansed ulceration with saline and dressed with dsd Will order mupricion Will continue to follow while in house
--- NOTE | 2017-08-19 17:38 | CP.PCM.HP ---
Past Patient History - Past Medical History & Family History Past Medical History?: Yes - Past Social History Smoking Status: Heavy Smoker > 10 Cigarettes Daily - CARDIAC Hx Hypertension: No - PULMONARY Hx Tuberculosis: No - NEUROLOGICAL Hx Seizures: No - HEMATOLOGICAL/ONCOLOGICAL Hx Human Immunodeficiency Virus (HIV): No - MUSCULOSKELETAL/RHEUMATOLOGICAL Hx Falls: No Other/Comment: per pt he has a bone degeration disorder unable to name it - GENITOURINARY/GYNECOLOGICAL Hx Sexually Transmitted Disorders: No - PSYCHIATRIC Hx Substance Use: Yes - SURGICAL HISTORY Hx Musculoskeletal Surgery: Yes (2 hip replacemnts 2009 2012) - ANESTHESIA Hx Anesthesia: Yes Hx Anesthesia Reactions: No Hx Malignant Hyperthermia: No Meds Allergies/Adverse Reactions: Allergies Allergy/AdvReac Type Severity Reaction Status Date / Time No Known Allergies Allergy Verified 08/18/17 16:24 Results - Vital Signs Recent Vital Signs: Last Vital Signs Temp 98.3 F 08/19/17 16:00 Pulse 62 08/19/17 16:00 Resp 20 08/19/17 16:00 BP 120/56 L 08/19/17 16:00 Pulse Ox 100 08/19/17 16:00 - Labs Result Diagrams: 08/18/17 17:59 08/18/17 17:59 Labs: Laboratory Results - last 24 hr 08/18/17 08/18/17 08/18/17 17:59 17:59 17:59 WBC 8.9 RBC 4.73 Hgb 14.6 Hct 42.3 MCV 89.4 MCH 30.9 MCHC 34.6 RDW 14.4 Plt Count 249 MPV 8.5 Neut % (Auto) 75.3 H Lymph % (Auto) 17.7 L [place] % (Auto) 5.1 Eos % (Auto) 1.4 Baso % (Auto) 0.5 Neut # (Auto) 6.7 Lymph # (Auto) 1.6 [place] # (Auto) 0.5 Eos # (Auto) 0.1 Baso # (Auto) 0.0 PT 13.2 H INR 1.2 APTT 35 H Sodium 140 Potassium 3.9 Chloride 104 Carbon Dioxide 26 Anion Gap 13 BUN 14 Creatinine 0.7 L Est GFR ( Amer) > 60 Est GFR (Non-Af Amer) > 60 Random Glucose 129 H Calcium 9.0 Total Bilirubin 1.0 AST 96 H ALT 149 H D Alkaline Phosphatase 98 Total Protein 7.2 Albumin 3.8 Globulin 3.4 Albumin/Globulin Ratio 1.1 Urine Color Urine Clarity Urine pH Ur Specific [place] Urine Protein Urine Glucose (UA) Urine Ketones Urine Blood Urine Nitrate Urine Bilirubin Urine Urobilinogen Ur Leukocyte Esterase Urine WBC (Auto) Urine RBC (Auto) Ur Squamous Epith Cells Urine Opiates Screen Urine Methadone Screen Ur Barbiturates Screen Ur Phencyclidine Scrn Ur Amphetamines Screen U Benzodiazepines Scrn U Oth Cocaine Metabols U Cannabinoids Screen 08/18/17 08/18/17 18:29 18:29 WBC RBC Hgb Hct MCV MCH MCHC RDW Plt Count MPV Neut % (Auto) Lymph % (Auto) [place] % (Auto) Eos % (Auto) Baso % (Auto) Neut # (Auto) Lymph # (Auto) [place] # (Auto) Eos # (Auto) Baso # (Auto) PT INR APTT Sodium Potassium Chloride Carbon Dioxide Anion Gap BUN Creatinine Est GFR ( Amer) Est GFR (Non-Af Amer) Random Glucose Calcium Total Bilirubin AST ALT Alkaline Phosphatase Total Protein Albumin Globulin Albumin/Globulin Ratio Urine Color [place] Urine Clarity Clear Urine pH 7.0 Ur Specific [place] 1.023 Urine Protein 1+ H Urine Glucose (UA) Normal Urine Ketones Trace Urine Blood Negative Urine Nitrate Negative Urine Bilirubin Negative Urine Urobilinogen 4.0 Ur Leukocyte Esterase Neg Urine WBC (Auto) 1 Urine RBC (Auto) < 1 Ur Squamous Epith Cells < 1 Urine Opiates Screen Positive H Urine Methadone Screen Negative Ur Barbiturates Screen Negative Ur Phencyclidine Scrn Negative Ur Amphetamines Screen Negative U Benzodiazepines Scrn Negative U Oth Cocaine Metabols Positive H U Cannabinoids Screen Negative
[2017-08-20] MEDS: Oxycodone/Acetaminophen 5/325 mg Tab PO PRN ×5 (03:50→21:20)
[2017-08-20] MEDS: Piperacill/Tazo 3.375gm in Dex 3.375 GM/50 ML BAG IVPB SCH (05:45)
[2017-08-20] MEDS: Vancomycin 1 gm/NS 200 ml 1 GM/200 ML BAG IVPB SCH ×2 (07:58→19:30)
[2017-08-20] MEDS: Enoxaparin 40 mg Syringe SC SCH (10:11)
[2017-08-20] MEDS: Piperacillin/Tazobact 3.375 GM in Sodium Chloride 0.9% 100 ML IVPB SCH ×2 (13:04→20:53)
--- NOTE | 2017-08-20 13:48 | CP.PCM.PN ---
Subjective - Date & Time of Evaluation Date of Evaluation: 08/20/17 Time of Evaluation: 12:00 - Subjective Subjective: 52 y.o male seen at bedside for infected 2nd digit ulceration + OM and 3rd toe pain. Patient is seen resting comfortably in bed, in NAD, and AA0x3. Patient denies acute overnight events. Patient reports pain to left foot and reports pain at the 2nd digit. Patient denies calf tenderness. Patient denies n/v/sob/cp /chills or f. Patient has no new pedal complaints. Objective - Vital Signs/Intake and Output Vital Signs (last 24 hours): Temp Pulse Resp BP Pulse Ox 98.3 F 61 20 115/71 97 08/20/17 07:51 08/20/17 07:51 08/20/17 07:51 08/20/17 07:51 08/20/17 07:51 Intake and Output: 08/20/17 08/20/17 06:59 18:59 Intake Total 450 Output Total 900 Balance -450 - Medications Medications: Current Medications Enoxaparin Sodium (Lovenox) 40 mg SC DAILY [facility] Last Admin: 08/20/17 10:11 Dose: 40 mg Vancomycin/Sodium Chloride (Vancomycin 1 Gm/Ns 200 Ml) 1 gm in 200 mls @ 133.333 mls/hr IVPB Q12H [facility] Stop: 08/24/17 08:01 Last Admin: 08/20/17 07:58 Dose: 133.333 mls/hr Piperacillin Sod/Tazobactam (Sod 3.375 gm/ Sodium Chloride) 100 mls @ 100 mls/ hr IVPB Q8H [facility] Last Admin: 08/20/17 13:04 Dose: 100 mls/hr Mupirocin (Bactroban Ointment) 0 gm TOP DAILY [facility] Last Admin: 08/20/17 10:30 Dose: 1 applic Oxycodone/Acetaminophen (Percocet 5/325 Mg Tab) 1 tab PO Q4H PRN PRN Reason: Pain, severe (8-10) Stop: 08/22/17 17:15 Last Admin: 08/20/17 11:56 Dose: 1 tab - Labs Labs: 08/18/17 17:59 08/18/17 17:59 PT 13.2 SECONDS (9.7-12.2) H 02/02/18 17:59 INR 1.2 08/18/17 17:59 APTT 35 SECONDS (21-34) H 08/18/17 17:59 - Constitutional Appears: Well, Non-toxic, No Acute Distress - Extremities Exam Additional comments: Vasc: DP and PT 2/4 bilaterally, CFT < 3 seconds to the digits, edema noted to the left foot 2nd and 3rd digit and forefoot Ortho: severe pain with palpation to the entire 2nd and moderate pain to the 3rd digit Neuro: gross intact and protective sensation diminished Derm: ulceration noted to the distal tip of the left 2nd digit measuring approximately 2 cm circumferentially x .1 cm, erythema noted to the 2nd digit, odor noted from the ulceration, no purulence at the time of visitation, no active drainage, no tunneling or undermining noted, no probe to bone. - Neurological Exam Neurological Exam: Alert, Awake, Oriented x3 - Psychiatric Exam Psychiatric exam: Normal Affect, Normal Mood Assessment and Plan - Assessment and Plan (Free Text) Assessment: 52 y.o male seen at bedside for infected 2nd digit ulceration + OM and 3rd toe pain Plan: Patient examined and evaluated Discussed plan in detail with attending Dr. Croft Labs, charts, vitals reviewed (afebrile, absent leukocytosis) X-rays- Impression destructive changes- OM of distal tuft distal phalanx 2nd digit L Wound culture left foot taken (08/18/17)- pending results Continue IV abx per ID: Vancomycin and Zosyn Arterial duplex taken- awaiting final report Ordered bone scan pending results Cleansed ulceration with saline and dressed with dsd and mupricion Will continue to follow while in house
--- NOTE | 2017-08-20 14:15 | CP.PCM.PN ---
<Cristine Aguilar - Last Filed: 08/20/17 14:15> Subjective - Date & Time of Evaluation Date of Evaluation: 08/20/17 Time of Evaluation: 14:15 Objective - Vital Signs/Intake and Output Vital Signs (last 24 hours): Temp Pulse Resp BP Pulse Ox 98.3 F 61 20 115/71 97 08/20/17 07:51 08/20/17 07:51 08/20/17 07:51 08/20/17 07:51 08/20/17 07:51 Intake and Output: 08/20/17 08/20/17 06:59 18:59 Intake Total 450 Output Total 900 Balance -450 - Medications Medications: Current Medications Enoxaparin Sodium (Lovenox) 40 mg SC DAILY [facility] Last Admin: 08/20/17 10:11 Dose: 40 mg Vancomycin/Sodium Chloride (Vancomycin 1 Gm/Ns 200 Ml) 1 gm in 200 mls @ 133.333 mls/hr IVPB Q12H [facility] Stop: 08/24/17 08:01 Last Admin: 08/20/17 07:58 Dose: 133.333 mls/hr Piperacillin Sod/Tazobactam (Sod 3.375 gm/ Sodium Chloride) 100 mls @ 100 mls/ hr IVPB Q8H [facility] Last Admin: 08/20/17 13:04 Dose: 100 mls/hr Mupirocin (Bactroban Ointment) 0 gm TOP DAILY [facility] Last Admin: 08/20/17 10:30 Dose: 1 applic Oxycodone/Acetaminophen (Percocet 5/325 Mg Tab) 1 tab PO Q4H PRN PRN Reason: Pain, severe (8-10) Stop: 08/22/17 17:15 Last Admin: 08/20/17 11:56 Dose: 1 tab - Labs Labs: 08/18/17 17:59 08/18/17 17:59 PT 13.2 SECONDS (9.7-12.2) H 08/18/17 17:59 INR 1.2 08/18/17 17:59 APTT 35 SECONDS (21-34) H 08/18/17 17:59 <Gianni Villalba - Last Filed: 08/20/17 21:08> Subjective - Subjective Subjective: Refer to podiatry progress note Objective - Vital Signs/Intake and Output Vital Signs (last 24 hours): Temp Pulse Resp BP Pulse Ox 98.3 F 61 20 115/71 97 08/20/17 07:51 08/20/17 07:51 08/20/17 07:51 08/20/17 07:51 08/20/17 07:51 Intake and Output: 08/20/17 08/20/17 06:59 18:59 Intake Total 450 900 Output Total 900 Balance -450 900 - Medications Medications: Current Medications Enoxaparin Sodium (Lovenox) 40 mg SC DAILY [facility] Last Admin: 08/20/17 10:11 Dose: 40 mg Vancomycin/Sodium Chloride (Vancomycin 1 Gm/Ns 200 Ml) 1 gm in 200 mls @ 133.333 mls/hr IVPB Q12H [facility] Stop: 08/24/17 08:01 Last Admin: 08/20/17 07:58 Dose: 133.333 mls/hr Piperacillin Sod/Tazobactam (Sod 3.375 gm/ Sodium Chloride) 100 mls @ 100 mls/ hr IVPB Q8H [facility] Last Admin: 08/20/17 13:04 Dose: 100 mls/hr Mupirocin (Bactroban Ointment) 0 gm TOP DAILY [facility] Last Admin: 08/20/17 10:30 Dose: 1 applic Oxycodone/Acetaminophen (Percocet 5/325 Mg Tab) 1 tab PO Q4H PRN PRN Reason: Pain, severe (8-10) Stop: 08/22/17 17:15 Last Admin: 08/20/17 11:56 Dose: 1 tab Zolpidem Tartrate (Ambien) 10 mg PO HS PRN PRN Reason: Insomnia - Labs Labs: 08/18/17 17:59 08/18/17 17:59 PT 13.2 SECONDS (9.7-12.2) H 08/18/17 17:59 INR 1.2 08/18/17 17:59 APTT 35 SECONDS (21-34) H 08/18/17 17:59
--- NOTE | 2017-08-20 16:25 | CP.PCM.CON ---
History of Present Illness - History of Present Illness History of Present Illness: 52 y.o male seen at bedside for 2nd and 3rd toe pain. 2nd toe pain > 3rd toe pain. Patient reports that 3 weeks ago he stub his foot. He reports seeing his toe being black and blue so he started soaking his foot in water and Epsom salt. He reports days later he noticed swelling at the ankle and drainage to the 2nd left toe a few days later. Today he denies n/v/sob/cp/chills or f. PMH: reports had endocarditis in the past from unknown source per pt; reports got his sugar tested and was negative for DM PSH: bilateral hip replacement and left finger surgery SH: 1ppd 40 years, current heroine user, denies EtOh use FH: mother- DM, father- heart disease, liver and lung cancer ALL: NKDA MEDS: see meds list Review of Systems - Constitutional Constitutional: As Per HPI - EENT Eyes: absent: As Per HPI, Blind Spots, Blurred Vision, Change in Vision, Decreased Night Vision, Diplopia, Discharge, Dry Eye, Exophthalmos, Floaters, Irritation, Itchy Eyes, Loss of Peripheral Vision, Pain, Photophobia, Requires Corrective Lenses, Sees Flashes, Spots in Vision, Tunnel Vision, Other Visual Disturbances, Loss of Vision, Other Ears: absent: As Per HPI, Decreased Hearing, Ear Discharge, Ear Pain, Tinnitus, Abnormal Hearing, Disequilibrium, Dizziness, Other Nose/Mouth/Throat: absent: As Per HPI, Epistaxis, Nasal Congestion, Nasal Discharge, Nasal Obstruction, Nasal Trauma, Nose Pain, Post Nasal Drip, Sinus Pain, Sinus Pressure, Bleeding Gums, Change in Voice, Dental Pain, Dry Mouth, Dysphagia, Halitosis, Hoarsness, Lip Swelling, Mouth Lesions, Mouth Pain, Odynophagia, Sore Throat, Throat Swelling, Tongue Swelling, Facial Pain, Neck Pain, Neck Mass, Other - Cardiovascular Cardiovascular: absent: As Per HPI, Acrocyanosis, Chest Pain, Chest Pain at Rest , Chest Pain with Activity, Claudication, Diaphoresis, Dyspnea, Dyspnea on Exertion, Edema, Irregular Heart Rhythm, Pain Radiating to Arm/Neck/Jaw, Leg Edema, Leg Ulcers, Lightheadedness, Orthopnea, Palpitations, Paroxysmal Nocturnal Dyspnea, Pedal Edema, Radiating Pain, Rapid Heart Rate, Slow Heart Rate, Syncope, Other - Respiratory Respiratory: As Per HPI - Gastrointestinal Gastrointestinal: absent: As Per HPI, Abdominal Pain, Belching, Bloating, Change in Bowel Habits, Change in Stool Character, Coffee Ground Emesis, Constipation, Cramping, Diarrhea, Dyspepsia, Dysphagia, Early Satiety, Excessive Flatus, Fecal Incontinence, Heartburn, Hematemesis, Hematochezia, Loose Stools, Melena, Nausea, Odynophagia, Temesmus, Vomiting, Other - Genitourinary Genitourinary: absent: As Per HPI, Change in Urinary Stream, Difficulty Urinating, Dysuria, Flank Pain, Hematuria, Pyuria, Nocturia, Urinary Incontinence, Urinary Frequency, Urinary Hesitance, Urinary Urgency, Voiding Freq/Small Amts, Freq UTI, Hx Renal/Bladder Calculi, Hx /Renal Surgery, Bladder Distension, Other - Musculoskeletal Musculoskeletal: As Per HPI - Integumentary Integumentary: As Per HPI, Skin Pain, Wounds - Neurological Neurological: absent: As Per HPI, Abnormal Gait, Abnormal Hearing, Abnormal Movements, Abnormal Speech, Behavioral Changes, Burning Sensations, Confusion, Convulsions, Disequilibrium, Dizziness, Numbness, Focal Weakness, Frequent Falls , Headaches, Lack of Coordination, Loss of Vision, Memory Loss, Paresthesias, Radicular Pain, Restless Legs, Sensory Deficit, Syncope, Tingling, Tremor, Vertigo, Weakness, Other Visual Disturbances, Other - Psychiatric Psychiatric: absent: As Per HPI, Abnormal Sleep Pattern, Anhedonia, Anxiety, Auditory Hallucinations, Behavioral Changes, Change in Appetite, Change in Libido, Confusion, Depression, Difficulty Concentrating, Hallucinations, Homicidal Ideation, Hopelessness, Irritability, Memory Loss, Mood Swings, Panic Attacks, Paranoia, Suicidal Ideation, Visual Hallucinations, Tactile Hallucinations, Other - Endocrine Endocrine: absent: As Per HPI, Change in Body Appearance, Change in Libido, Cold Intolorance, Deepening of Voice, Excessive Sweating, Fatigue, Flushing, Heat Intolorance, Increase in Ring/Shoe/Hat Size, Palpitations, Polydipsia, Polyphagia, Polyuria, Other - Hematologic/Lymphatic Hematologic: absent: As Per HPI, Easy Bleeding, Easy Bruising, Lymphadenopathy, Other Past Patient History - Past Medical History & Family History Past Medical History?: Yes - Past Social History Smoking Status: Heavy Smoker > 10 Cigarettes Daily - CARDIAC Hx Hypertension: No - PULMONARY Hx Tuberculosis: No - NEUROLOGICAL Hx Seizures: No - HEMATOLOGICAL/ONCOLOGICAL Hx Human Immunodeficiency Virus (HIV): No - MUSCULOSKELETAL/RHEUMATOLOGICAL Hx Falls: No Other/Comment: per pt he has a bone degeration disorder unable to name it - GENITOURINARY/GYNECOLOGICAL Hx Sexually Transmitted Disorders: No - PSYCHIATRIC Hx Substance Use: Yes - SURGICAL HISTORY Hx Musculoskeletal Surgery: Yes (2 hip replacemnts 2009 2012) - ANESTHESIA Hx Anesthesia: Yes Hx Anesthesia Reactions: No Hx Malignant Hyperthermia: No Meds Allergies/Adverse Reactions: Allergies Allergy/AdvReac Type Severity Reaction Status Date / Time No Known Allergies Allergy Verified 08/18/17 16:24 - Medications Medications: Current Medications Enoxaparin Sodium (Lovenox) 40 mg SC DAILY [facility] Last Admin: 08/20/17 10:11 Dose: 40 mg Vancomycin/Sodium Chloride (Vancomycin 1 Gm/Ns 200 Ml) 1 gm in 200 mls @ 133.333 mls/hr IVPB Q12H [facility] Stop: 08/24/17 08:01 Last Admin: 08/20/17 07:58 Dose: 133.333 mls/hr Piperacillin Sod/Tazobactam (Sod 3.375 gm/ Sodium Chloride) 100 mls @ 100 mls/ hr IVPB Q8H [facility] Last Admin: 08/20/17 13:04 Dose: 100 mls/hr Mupirocin (Bactroban Ointment) 0 gm TOP DAILY [facility] Last Admin: 08/20/17 10:30 Dose: 1 applic Oxycodone/Acetaminophen (Percocet 5/325 Mg Tab) 1 tab PO Q4H PRN PRN Reason: Pain, severe (8-10) Stop: 08/22/17 17:15 Last Admin: 08/20/17 11:56 Dose: 1 tab Zolpidem Tartrate (Ambien) 10 mg PO HS PRN PRN Reason: Insomnia Physical Exam - Constitutional Appears: Non-toxic, Cachectic, Chronically Ill - Head Exam Head Exam: NORMOCEPHALIC - Eye Exam Eye Exam: absent: Scleral icterus - ENT Exam ENT Exam: Mucous Membranes Dry, Normal External Ear Exam - Neck Exam Neck exam: Negative for: Lymphadenopathy - Respiratory Exam Respiratory Exam: Decreased Breath Sounds, Rhonchi - Cardiovascular Exam Cardiovascular Exam: REGULAR RHYTHM, +S1, +S2 - GI/Abdominal Exam GI & Abdominal Exam: Diminished Bowel Sounds, Distended, Soft. absent: Tenderness - Rectal Exam Rectal Exam: Deferred - Exam Exam: NORMAL INSPECTION - Extremities Exam Extremities exam: Positive for: pedal edema, tenderness, pedal pulses present. Negative for: calf tenderness Additional comments: Vasc: DP and PT 2/4 bilaterally, CFT < 3 seconds to the digits, edema noted to the left foot 2nd and 3rd digit and forefoot Ortho: severe pain with palpation to the entire 2nd and moderate pain to the 3rd digit Neuro: gross intact and protective sensation diminished Derm: ulceration noted to the distal tip of the left 2nd digit measuring approximately 2 cm circumferentially x .1 cm, erythema noted to the 2nd digit, odor noted from the ulceration, no purulence at the time of visitation, no active drainage, no tunneling or undermining noted, no probe to bone. - Back Exam Back exam: absent: CVA tenderness (L), CVA tenderness (R) - Neurological Exam Neurological exam: Alert, CN II-XII Intact, Oriented x3, Reflexes Normal - Psychiatric Exam Psychiatric exam: Depressed - Skin Skin Exam: Dry Results - Vital Signs Recent Vital Signs: Last Vital Signs Temp 98.3 F 08/20/17 07:51 Pulse 61 08/20/17 07:51 Resp 20 08/20/17 07:51 BP 115/71 08/20/17 07:51 Pulse Ox 97 08/20/17 07:51 - Labs Result Diagrams: 08/18/17 17:59 08/18/17 17:59 Assessment & Plan (1) Foot ulcer, left Status: Acute (2) Osteomyelitis of toe of left foot Status: Acute - Assessment and Plan (Free Text) Assessment: will likely need 6 weeks- 8 weeks iv rx await OR cultures
[2017-08-21] MEDS: Oxycodone/Acetaminophen 5/325 mg Tab PO PRN ×5 (01:35→22:23)
[2017-08-21] MEDS: Piperacillin/Tazobact 3.375 GM in Sodium Chloride 0.9% 100 ML IVPB SCH ×3 (05:15→21:12)
[2017-08-21] MEDS: Enoxaparin 40 mg Syringe SC SCH (09:02)
[2017-08-21] MEDS: Vancomycin 1 gm/NS 200 ml 1 GM/200 ML BAG IVPB SCH ×2 (09:03→21:16)
--- NOTE | 2017-08-21 13:17 | VASCLAB ---
STUDY DESCRIPTION: HISTORY: left foot ulceration PRIORS: None. TECHNIQUE: Pulse volume recording waveforms and segmental pressures of bilateral lower extremities at multiple levels were obtained. Ankle Brachial Indices (ABIs) were calculated. Report prepared by BIBI Yap, RVT RIGHT LOWER EXTREMITY: * Brachial artery: Pressure - 122 mmHg. * High thigh: Pressure - 152 mmHg: Ratio - 1.21: PVR waveform - Pulsatile * Low thigh: Pressure - 161 mmHg: Ratio - 1.28 PVR waveform: Pulsatile * Calf: Pressure - 168 mmHg: Ratio - 1.33 PVR waveform: Pulsatile * Posterior tibial Artery: Pressure - 181 mmHg: Ratio - 1.44 PVR waveform: Pulsatile * Dorsalis pedis Artery: Pressure - 155 mmHg: Ratio - 1.23 PVR waveform: Pulsatile * Great toe: Pressure - mmHg: Ratio - PVR waveform: Ankle brachial index (EDGAR): 1.44 LEFT LOWER EXTREMITY: * Brachial artery: Pressure - 126 mmHg. * High thigh: Pressure - 160 mmHg: Ratio - 1.27: PVR waveform - Pulsatile * Low thigh: Pressure - 150 mmHg: Ratio - 1.19 PVR waveform: Pulsatile * Calf: Pressure - 154 mmHg: Ratio - 1.22 PVR waveform: Pulsatile * Posterior tibial Artery: Pressure - 170 mmHg: Ratio - 1.35 PVR waveform: Pulsatile * Dorsalis pedis Artery: Pressure - 171 mmHg: Ratio - 1.36 PVR waveform: Pulsatile * Great toe: Pressure - mmHg: Ratio - PVR waveform: Ankle brachial index (EDGAR): 1.36 OTHER FINDINGS: Right: Left: IMPRESSION: Right: The ankle pressure index of the right lower extremity is non-diagnostic due to possible arterial wall calcifications. Waveforms are pulsatile. Recommend CT angiogram. Left: The ankle pressure index of the left lower extremity is non-diagnostic due to possible arterial wall calcifications.
--- NOTE | 2017-08-21 20:55 | CP.PCM.PN ---
Subjective - Date & Time of Evaluation Date of Evaluation: 08/21/17 Time of Evaluation: 20:55 Objective - Vital Signs/Intake and Output Vital Signs (last 24 hours): Temp Pulse Resp BP Pulse Ox 98.0 F 55 L 20 134/80 98 08/21/17 16:31 18 16:31 08/21/17 16:31 08/21/17 16:31 08/21/17 16:31 Intake and Output: 08/21/17 08/22/17 18:59 06:59 Intake Total 1100 Balance 1100 - Medications Medications: Current Medications Enoxaparin Sodium (Lovenox) 40 mg SC DAILY [facility] Last Admin: 08/21/17 09:02 Dose: 40 mg Heparin Sodium (Porcine) (Heparin) 1,000 units IVP ONCE [facility] Vancomycin/Sodium Chloride (Vancomycin 1 Gm/Ns 200 Ml) 1 gm in 200 mls @ 133.333 mls/hr IVPB Q12H [facility] Stop: 08/24/17 08:01 Last Admin: 08/21/17 09:03 Dose: 133.333 mls/hr Piperacillin Sod/Tazobactam (Sod 3.375 gm/ Sodium Chloride) 100 mls @ 100 mls/ hr IVPB Q8H [facility] Last Admin: 08/21/17 12:58 Dose: 100 mls/hr Methadone HCl (Methadone) 60 mg PO DAILY [facility] Last Admin: 08/21/17 14:14 Dose: 60 mg Mupirocin (Bactroban Ointment) 0 gm TOP DAILY [facility] Last Admin: 08/21/17 09:02 Dose: 1 applic Oxycodone/Acetaminophen (Percocet 5/325 Mg Tab) 1 tab PO Q4H PRN PRN Reason: Pain, severe (8-10) Stop: 08/22/17 17:15 Last Admin: 08/21/17 17:31 Dose: 1 tab Temazepam (Restoril) 30 mg PO HS PRN PRN Reason: Insomnia - Labs Labs: 08/18/17 17:59 08/18/17 17:59 PT 13.2 SECONDS (9.7-12.2) H 08/18/17 17:59 INR 1.2 08/18/17 17:59 APTT 35 SECONDS (21-34) H 08/18/17 17:59
--- NOTE | 2017-08-21 23:53 | CP.PCM.PN ---
Subjective - Date & Time of Evaluation Date of Evaluation: 08/21/17 Time of Evaluation: 20:40 Objective - Vital Signs/Intake and Output Vital Signs (last 24 hours): Temp Pulse Resp BP Pulse Ox 98.0 F 55 L 20 134/80 98 08/21/17 16:31 08/21/17 16:31 08/21/17 16:31 08/21/17 16:31 08/21/17 16:31 Intake and Output: 08/21/17 08/22/17 18:59 06:59 Intake Total 1100 600 Output Total 600 Balance 1100 0 - Medications Medications: Current Medications Enoxaparin Sodium (Lovenox) 40 mg SC DAILY [facility] Last Admin: 08/21/17 09:02 Dose: 40 mg Heparin Sodium (Porcine) (Heparin) 1,000 units IVP ONCE [facility] Vancomycin/Sodium Chloride (Vancomycin 1 Gm/Ns 200 Ml) 1 gm in 200 mls @ 133.333 mls/hr IVPB Q12H [facility] Stop: 08/24/17 08:01 Last Admin: 08/21/17 21:16 Dose: 133.333 mls/hr Piperacillin Sod/Tazobactam (Sod 3.375 gm/ Sodium Chloride) 100 mls @ 100 mls/ hr IVPB Q8H [facility] Last Admin: 08/21/17 21:12 Dose: 100 mls/hr Methadone HCl (Methadone) 60 mg PO DAILY [facility] Last Admin: 08/21/17 14:14 Dose: 60 mg Mupirocin (Bactroban Ointment) 0 gm TOP DAILY [facility] Last Admin: 08/21/17 09:02 Dose: 1 applic Oxycodone/Acetaminophen (Percocet 5/325 Mg Tab) 1 tab PO Q4H PRN PRN Reason: Pain, severe (8-10) Stop: 08/22/17 17:15 Last Admin: 08/21/17 22:23 Dose: 1 tab Temazepam (Restoril) 30 mg PO HS PRN PRN Reason: Insomnia - Labs Labs: 08/18/17 17:59 08/18/17 17:59 PT 13.2 SECONDS (9.7-12.2) H 08/18/17 17:59 INR 1.2 08/18/17 17:59 APTT 35 SECONDS (21-34) H 08/18/17 17:59
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
[2017-08-22] MEDS: Oxycodone/Acetaminophen 5/325 mg Tab PO PRN ×4 (05:05→23:49)
[2017-08-22] MEDS: Piperacillin/Tazobact 3.375 GM in Sodium Chloride 0.9% 100 ML IVPB SCH ×3 (05:05→21:12)
[2017-08-22] MEDS: Vancomycin 1 gm/NS 200 ml 1 GM/200 ML BAG IVPB SCH (08:34)
[2017-08-22] MEDS: Enoxaparin 40 mg Syringe SC SCH (10:00)
--- NOTE | 2017-08-22 11:17 | CP.PCM.CON ---
History of Present Illness - History of Present Illness History of Present Illness: Vascular Surgery Consult note- Dr. Ribera 52M significant hx of tobacco use presents to [facility] ED for pain and purulent drainage of the 2nd and 3rd toe of the left food. patient reports having stubbed his toe 4 weeks ago, and has never properly healed. Tried using epsom salt, however pain and swelling ascended up his leg. Reports very tender to touch. Surgery was consulted to asses for PVD Denies: Fevers, chills, chest pain, shortness of breath, nausea, vomiting, diarrhea PMH: endocarditis (unconfirmed), denies diabetes PSH: bilateral ZAHEER, left finger surgery ALL: NKDA SocialHx: homeless, smokes 1ppd for 40+ years, current heroine use Review of Systems - Review of Systems All systems: reviewed and no additional remarkable complaints except - Constitutional Constitutional: As Per HPI Past Patient History - Past Medical History & Family History Past Medical History?: Yes - Past Social History Smoking Status: Heavy Smoker > 10 Cigarettes Daily - CARDIAC Hx Hypertension: No - PULMONARY Hx Tuberculosis: No - NEUROLOGICAL Hx Seizures: No - HEMATOLOGICAL/ONCOLOGICAL Hx Human Immunodeficiency Virus (HIV): No - MUSCULOSKELETAL/RHEUMATOLOGICAL Hx Falls: No Other/Comment: per pt he has a bone degeration disorder unable to name it - GENITOURINARY/GYNECOLOGICAL Hx Sexually Transmitted Disorders: No - PSYCHIATRIC Hx Substance Use: Yes - SURGICAL HISTORY Hx Musculoskeletal Surgery: Yes (2 hip replacemnts 2009 2012) - ANESTHESIA Hx Anesthesia: Yes Hx Anesthesia Reactions: No Hx Malignant Hyperthermia: No Meds Allergies/Adverse Reactions: Allergies Allergy/AdvReac Type Severity Reaction Status Date / Time No Known Allergies Allergy Verified 08/18/17 16:24 - Medications Medications: Current Medications Enoxaparin Sodium (Lovenox) 40 mg SC DAILY [facility] Last Admin: 08/22/17 10:00 Dose: 40 mg Heparin Sodium (Porcine) (Heparin) 1,000 units IVP ONCE [facility] Vancomycin/Sodium Chloride (Vancomycin 1 Gm/Ns 200 Ml) 1 gm in 200 mls @ 133.333 mls/hr IVPB Q12H [facility] Stop: 08/24/17 08:01 Last Admin: 08/22/17 08:34 Dose: 133.333 mls/hr Piperacillin Sod/Tazobactam (Sod 3.375 gm/ Sodium Chloride) 100 mls @ 100 mls/ hr IVPB Q8H [facility] Last Admin: 08/22/17 05:05 Dose: 100 mls/hr Methadone HCl (Methadone) 60 mg PO DAILY [facility] Last Admin: 08/22/17 10:00 Dose: 60 mg Mupirocin (Bactroban Ointment) 0 gm TOP DAILY [facility] Last Admin: 08/22/17 10:00 Dose: 1 applic Oxycodone/Acetaminophen (Percocet 5/325 Mg Tab) 1 tab PO Q4H PRN PRN Reason: Pain, severe (8-10) Stop: 08/22/17 17:15 Last Admin: 08/22/17 05:05 Dose: 1 tab Temazepam (Restoril) 30 mg PO HS PRN PRN Reason: Insomnia Last Admin: 08/22/17 00:45 Dose: 30 mg Physical Exam - Constitutional Appears: Non-toxic, No Acute Distress - Head Exam Head Exam: ATRAUMATIC - Eye Exam Eye Exam: EOMI. absent: Scleral icterus - ENT Exam ENT Exam: Mucous Membranes Moist - Respiratory Exam Respiratory Exam: NORMAL BREATHING PATTERN. absent: Accessory Muscle Use, Respiratory Distress - Cardiovascular Exam Cardiovascular Exam: +S1, +S2. absent: Bradycardia, Tachycardia - GI/Abdominal Exam GI & Abdominal Exam: Soft. absent: Distended, Firm, Rigid, Tenderness - Extremities Exam Extremities exam: Negative for: calf tenderness Additional comments: Left 2nd and 3rd toe; dark and necrotic. on plantar side has stage one ulcer +2 palpable DP and PT pulses Results - Vital Signs Recent Vital Signs: Last Vital Signs Temp 97.7 F 08/22/17 07:33 Pulse 60 08/22/17 07:33 Resp 20 08/22/17 07:33 BP 118/75 08/22/17 07:33 Pulse Ox 96 08/22/17 07:33 - Labs Result Diagrams: 08/23/17 07:13 08/23/17 07:15 Assessment & Plan - Assessment and Plan (Free Text) Assessment: 52M w/ left 2nd toe non-healing wound w/ active purulent drainage; good peripheral lower extremity pulses Plan: - no plan for acute vascular surgical intervention - no need for further vascular workup as patient is cleared - discussed w/ Dr. Ribera surgical attending Richard Mansfield PGY1
--- NOTE | 2017-08-22 11:38 | PCM.PYCHPN ---
Psychiatric Progress Note - Psychiatric Progress Note Patient seen today, length of contact: 34 Patient Chief Complaint: "I am on methadone, I need someone to talk to, I think about killing myself sometimes." Problems Identified/Issues Discussed: HPI: Pt is a 52 year old male, with 3 kids (34, 29, 15 years old), in a long-term relationship with current girlfriend. On disability, previously worked in [employer]. Pt states I can barely feed myself with whats left over after child support. Pt presented to the ED for evaluation of left toe pain and is being treated for osteomyelitis. Psychiatry has been consulted for management of methadone taper. Pt states he uses 10-15 bags of heroin daily, began shooting it 1 year ago. He started using in 2012 after his second hip replacement surgery. At first, he said he started using heroin because he couldnt afford his pain medication prescriptions and began detoxing, later stating that they stopped prescribing him medication 3 months after his surgery. Pt states he continues to use because he is addicted and because he has chronic pain in his hips, right shoulder and vertebrae problems in his lower back and neck. Pt states he sometimes snorts cocaine, but not regularly and does not seek it out. Pt denies the use of xanax, marijuana or alcohol, stating he has not had a drink in 17 years. Cigarettes: 1 ppd. Pt states he is depressed because his gf of 4 years has moved to [facility] to live with and care for her elderly mother. Pt states he thinks about suicide almost daily for approximately a month, denies current SI or plan. Detox: twice. [facility] 09/2016. [facility] 2006 Rehab: once. [facility] 2009 Psych hx: self-admitted to [facility] due to suicidal ideation after his divorce. Pt states he was diagnosed with severe depression and anxiety for which he was prescribed xanax and sleep medication but can no longer afford these medications. Family psych hx: Sister: she had schizophrenia and depression, brothers: MDD. All siblings substance abuse disorders, pt declined to elaborate. Pt denies substance abuse or psych history for either parent. PMHx: HTN, hyperlipidemia, endocarditis (tx at [facility], unconfirmed), currently being treated for osteomyelitis of left foot. Medical Problems: PMHx: HTN, hyperlipidemia, endocarditis (tx at [facility], unconfirmed), currently being treated for osteomyelitis of left foot. Medication Change: Yes (detox changes daily) Medical Record Reviewed: Yes Mental Status Examination - Cognitive Function Orientation: Person, Place, Situation, Time - Mood Mood: Depressed, Anxious - Affect Affect: Depressed - Speech Speech: Appropriate - Suicidal Ideation Suicidal Ideation: No - Homicidal Ideation Homicidal Ideation: No Goal/Treatment Plan - Goal/Treatment Plan Need for Continued Stay: Remain at risks for inpatient hospitalization, Discharge may exacerbated symptoms, Severe functional impairment Progress Toward Problem(s) and Goals/Treatment Plan: Opioid use d/o Situational depression Opioid detox Gabapentin for augmentation As needed medications All risks, benefits and alternatives of the meds discussed, and the pt agreed and understood. Refer to rehab or IOP, and self-help groups Smoking cessation with [place] Nicotine patch 34 min
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
--- NOTE | 2017-08-22 14:01 | NM ---
PROCEDURE: Ceretec labeled white blood cell study. HISTORY: r/o OM left foot COMPARISON: 08/18/2015 left foot radiographs TECHNIQUE: 16.3 mCi technetium 99 M Ceretec labeled white blood cells administered intravenously. Imaging performed per institutional protocol at 3 and 24 hours FINDINGS: Accumulation of radionuclide left 2nd digit on the initial images at 03:00. Faint retention of radionuclide left 2nd digit in 24 hours. IMPRESSION: Positive Ceretec labeled white blood cell study for osteomyelitis affecting the distal tuft left 2nd digit.
--- NOTE | 2017-08-22 14:14 | PN ---
DATE: SUBJECTIVE: The patient is seen, the patient is doing much better with methadone and also he said he slept very well last night when he took the Restoril. The patient; however, was complaining about his room he said he needs housekeeping to clean it. The patient has been more cooperative with staff, with antibiotics, awaiting plan with Dr. Kelly on how long he will be on IV antibiotics as the patient has diagnosis of osteomyelitis. The patient is also on Percocet for pain. PHYSICAL EXAMINATION: VITAL SIGNS: Temperature is 97.7, pulse 61, blood pressure 118/75, respirations 20, oxygen saturation is 96%. REVIEW OF SYSTEMS: GENERAL: He is alert, and oriented x3, ambulating with a wheelchair, but doing much better, more cooperative. He is just asking his room to be cleaned. SKIN: No diaphoresis. HEENT: No headache. No dizziness. NECK: Supple. RESPIRATORY: No dyspnea. CARDIOVASCULAR: No chest pain. GASTROINTESTINAL: He is eating well. EXTREMITIES: The patient is complaining of pain in the affected foot but no other problem. GENITOURINARY: No dysuria. NEURO: Alert and oriented x3. MENTAL STATUS EXAMINATION: A very tall male, 6 feet and 6 inches tall, weighing 195 pounds, oriented x3, seen in his room, ambulating with a wheelchair. Mood is irritable at times. Affect reactive. Speech spontaneous. Thought process coherent. Though content, patient seems to be more rested ever since he is taking methadone. He also has agreed to be slowly tapered as needed, but for now we will keep him as the patient is a heavy IV drug user, to keep him more comfortable. No psychosis. No suicidal or homicidal ideation. Attention and memory seem to be fair. Insight and judgment improving. Impulse control is fair at this time. IMPRESSION: History of polysubstance dependence, cocaine and heroin, opiate withdrawal, osteomyelitis of his left foot. PLAN AND RECOMMENDATIONS: The patient seen, medications reviewed. Will continue present management. Continue Restoril 30 at bedtime p.r.n., also the methadone 60 mg daily, continue antibiotics is ordered. The patient is for possible referral to subacute rehab for about 6 weeks of IV antibiotics for his osteomyelitis. Other than that his behavior is more manageable. Olivier Abbott MD [facility] # [id number]
--- NOTE | 2017-08-22 16:23 | CP.PCM.PN ---
Subjective - Date & Time of Evaluation Date of Evaluation: 08/22/17 Time of Evaluation: 08:00 - Subjective Subjective: clinically same Objective - Vital Signs/Intake and Output Vital Signs (last 24 hours): Temp Pulse Resp BP Pulse Ox 97.7 F 60 20 118/75 96 08/22/17 07:33 08/22/17 07:33 08/22/17 07:33 08/22/17 07:33 08/22/17 07:33 Intake and Output: 08/22/17 08/22/17 06:59 18:59 Intake Total 1400 900 Output Total 1600 Balance -200 900 - Medications Medications: Current Medications Enoxaparin Sodium (Lovenox) 40 mg SC DAILY [facility] Last Admin: 08/22/17 10:00 Dose: 40 mg Heparin Sodium (Porcine) (Heparin) 1,000 units IVP ONCE [facility] Piperacillin Sod/Tazobactam (Sod 3.375 gm/ Sodium Chloride) 100 mls @ 100 mls/ hr IVPB Q8H [facility] Last Admin: 08/22/17 13:42 Dose: 100 mls/hr Vancomycin HCl 1 gm/ Sodium (Chloride) 250 mls @ 166.667 mls/hr IVPB Q12H [facility] Stop: 08/24/17 08:01 Methadone HCl (Methadone) 60 mg PO DAILY [facility] Last Admin: 08/22/17 10:00 Dose: 60 mg Mupirocin (Bactroban Ointment) 0 gm TOP DAILY [facility] Last Admin: 08/22/17 10:00 Dose: 1 applic Oxycodone/Acetaminophen (Percocet 5/325 Mg Tab) 1 tab PO Q4H PRN PRN Reason: Pain, severe (8-10) Stop: 08/22/17 17:15 Last Admin: 08/22/17 13:58 Dose: 1 tab Saccharomyces Boulardii (Florastor) 250 mg PO BID [facility] Temazepam (Restoril) 30 mg PO HS PRN PRN Reason: Insomnia Last Admin: 08/22/17 00:45 Dose: 30 mg - Labs Labs: 08/18/17 17:59 08/18/17 17:59 PT 13.2 SECONDS (9.7-12.2) H 08/18/17 17:59 INR 1.2 08/18/17 17:59 APTT 35 SECONDS (21-34) H 08/18/17 17:59 - Constitutional Appears: Well - Head Exam Head Exam: ATRAUMATIC, NORMAL INSPECTION, NORMOCEPHALIC - Eye Exam Eye Exam: EOMI, Normal appearance, PERRL Pupil Exam: NORMAL ACCOMODATION, PERRL - ENT Exam ENT Exam: Mucous Membranes Moist, Normal Exam - Neck Exam Neck Exam: Full ROM, Normal Inspection. absent: Lymphadenopathy - Respiratory Exam Respiratory Exam: Decreased Breath Sounds - Cardiovascular Exam Cardiovascular Exam: REGULAR RHYTHM, +S1, +S2 - GI/Abdominal Exam GI & Abdominal Exam: Soft, Diminished Bowel Sounds - Rectal Exam Rectal Exam: Deferred
--- NOTE | 2017-08-22 16:47 | CP.PCM.PN ---
<Aleena Lucio - Last Filed: 08/22/17 16:42> Subjective - Date & Time of Evaluation Date of Evaluation: 08/22/17 Time of Evaluation: 14:00 - Subjective Subjective: 52 y/o male seen at bedside for infected 2nd digit ulceration and 3rd toe pain. Patient is seen resting comfortably in bed, in NAD, and AA0x3. Patient denies acute overnight events. Patient reports pain to left foot is well controlled at this time, graded 3/10 at this time. Patient denies calf tenderness. Patient denies n/v/sob/cp/chills or fever. Patient has no new pedal complaints. Objective - Vital Signs/Intake and Output Vital Signs (last 24 hours): Temp Pulse Resp BP Pulse Ox 97.7 F 60 20 118/75 96 08/22/17 07:33 08/22/17 07:33 08/22/17 07:33 08/22/17 07:33 08/22/17 07:33 Intake and Output: 08/22/17 08/22/17 06:59 18:59 Intake Total 1400 900 Output Total 1600 Balance -200 900 - Medications Medications: Current Medications Enoxaparin Sodium (Lovenox) 40 mg SC DAILY [facility] Last Admin: 08/22/17 10:00 Dose: 40 mg Heparin Sodium (Porcine) (Heparin) 1,000 units IVP ONCE [facility] Piperacillin Sod/Tazobactam (Sod 3.375 gm/ Sodium Chloride) 100 mls @ 100 mls/ hr IVPB Q8H [facility] Last Admin: 08/22/17 13:42 Dose: 100 mls/hr Vancomycin HCl 1 gm/ Sodium (Chloride) 250 mls @ 166.667 mls/hr IVPB Q12H [facility] Stop: 08/24/17 08:01 Methadone HCl (Methadone) 60 mg PO DAILY [facility] Last Admin: 08/22/17 10:00 Dose: 60 mg Mupirocin (Bactroban Ointment) 0 gm TOP DAILY [facility] Last Admin: 08/22/17 10:00 Dose: 1 applic Oxycodone/Acetaminophen (Percocet 5/325 Mg Tab) 1 tab PO Q4H PRN PRN Reason: Pain, severe (8-10) Stop: 08/22/17 17:15 Last Admin: 08/22/17 13:58 Dose: 1 tab Saccharomyces Boulardii (Florastor) 250 mg PO BID [facility] Temazepam (Restoril) 30 mg PO HS PRN PRN Reason: Insomnia Last Admin: 08/22/17 00:45 Dose: 30 mg - Labs Labs: 08/18/17 17:59 08/18/17 17:59 PT 13.2 SECONDS (9.7-12.2) H 08/18/17 17:59 INR 1.2 08/18/17 17:59 APTT 35 SECONDS (21-34) H 08/18/17 17:59 - Constitutional Appears: Well, Non-toxic, No Acute Distress - Extremities Exam Additional comments: Vasc: DP and PT 2/4 bilaterally, CFT < 3 seconds to the digits, edema noted to the left foot 2nd and 3rd digit and forefoot. MUSK: Moderate tenderness to palpation with palpation to the entire 2nd and mild pain to the 3rd digit. Neuro: Gross protective sensation diminished DERM: Superficial ulceration noted to the distal tip of the left 2nd digit with a 2 cm diameter x 0.1 cm deep. Minor erythema noted to the 2nd digit, no malodor noted from the ulceration, no purulence at the time of visitation, no active drainage, no tunneling or undermining noted, no probe to bone. - Neurological Exam Neurological Exam: Alert, Awake, Oriented x3 - Psychiatric Exam Psychiatric exam: Normal Affect, Normal Mood Assessment and Plan - Assessment and Plan (Free Text) Assessment: 52 y/o male with left 2nd digit ulceration (+) for distal phalynx OM. Left 3rd toe pain Plan: Patient examined and evaluated. Discussed plan in detail with attending Dr. Croft. Labs, charts, vitals reviewed (afebrile, absent leukocytosis) X-ray results- Left foot destructive changes of disal 2nd digit. OM of distal tuft distal phalanx [facility] results- positive for left 2nd digit distal phalynx OM. Wound culture left foot taken (08/18/17) results= Corynebacterium species Continue IV abx per ID: Vancomycin and Zosyn Arterial duplex results- distal pulsitile wave forms however diffuse bilateral vessel calcification. Discussed with vascular specialist Dr. Ribera who recommends distal left 2nd digit amputation. Cleansed ulceration with saline and dressed with mupricion and DSD. Pt to remain full weightbearing as tolerated. Discussed with patient indication for left second digit amputation. Discussed risks, benefits, complications, and potential alternatives for digital amputation. Pt verbalizes understanding and wishes to proceed with digital amputation. Requesting Medical Clearance for left 2nd digit amputation. Pt scheduled for OR 08/24/17 in AM. Will continue to follow while in house. <Paulino Croft - Last Filed: 08/22/17 19:43> Objective - Vital Signs/Intake and Output Vital Signs (last 24 hours): Temp Pulse Resp BP Pulse Ox 98.2 F 59 L 20 107/54 L 97 08/22/17 16:00 08/22/17 16:00 08/22/17 16:00 08/22/17 16:00 08/22/17 16:00 Intake and Output: 08/22/17 08/23/17 18:59 06:59 Intake Total 900 Balance 900 - Medications Medications: Current Medications Enoxaparin Sodium (Lovenox) 40 mg SC DAILY [facility] Last Admin: 08/22/17 10:00 Dose: 40 mg Heparin Sodium (Porcine) (Heparin) 1,000 units IVP ONCE [facility] Piperacillin Sod/Tazobactam (Sod 3.375 gm/ Sodium Chloride) 100 mls @ 100 mls/ hr IVPB Q8H [facility] Last Admin: 08/22/17 13:42 Dose: 100 mls/hr Vancomycin HCl 1 gm/ Sodium (Chloride) 250 mls @ 166.667 mls/hr IVPB Q12H [facility] Stop: 08/24/17 08:01 Methadone HCl (Methadone) 60 mg PO DAILY [facility] Last Admin: 08/22/17 10:00 Dose: 60 mg Mupirocin (Bactroban Ointment) 0 gm TOP DAILY [facility] Last Admin: 08/22/17 10:00 Dose: 1 applic Oxycodone/Acetaminophen (Percocet 5/325 Mg Tab) 1 tab PO Q4H PRN PRN Reason: pain Stop: 08/25/17 18:22 Last Admin: 08/22/17 18:39 Dose: 1 tab Saccharomyces Boulardii (Florastor) 250 mg PO BID [facility] Last Admin: 08/22/17 17:21 Dose: 250 mg Temazepam (Restoril) 30 mg PO HS PRN PRN Reason: Insomnia Last Admin: 08/22/17 00:45 Dose: 30 mg - Labs Labs: 08/18/17 17:59 08/18/17 17:59 PT 13.2 SECONDS (9.7-12.2) H 08/18/17 17:59 INR 1.2 08/18/17 17:59 APTT 35 SECONDS (21-34) H 08/18/17 17:59 Assessment and Plan - Assessment and Plan (Free Text) Plan: Chart and labs reviewed .Lovenox to be held 2/7 and INR ordered .Surgery with risks ,benefit and alternatives discussed .Dr Croft
[2017-08-22] MEDS: Saccharomyces Boulardi 250 mg Cap PO SCH (17:21)
--- NOTE | 2017-08-22 18:27 | CP.PCM.PN ---
Subjective - Date & Time of Evaluation Date of Evaluation: 08/22/17 Time of Evaluation: 18:27 Objective - Vital Signs/Intake and Output Vital Signs (last 24 hours): Temp Pulse Resp BP Pulse Ox 98.2 F 59 L 20 107/54 L 97 08/22/17 16:00 08/22/17 16:00 08/22/17 16:00 08/22/17 16:00 08/22/17 16:00 Intake and Output: 08/22/17 08/22/17 06:59 18:59 Intake Total 1400 900 Output Total 1600 Balance -200 900 - Medications Medications: Current Medications Enoxaparin Sodium (Lovenox) 40 mg SC DAILY [facility] Last Admin: 08/22/17 10:00 Dose: 40 mg Heparin Sodium (Porcine) (Heparin) 1,000 units IVP ONCE [facility] Piperacillin Sod/Tazobactam (Sod 3.375 gm/ Sodium Chloride) 100 mls @ 100 mls/ hr IVPB Q8H [facility] Last Admin: 08/22/17 13:42 Dose: 100 mls/hr Vancomycin HCl 1 gm/ Sodium (Chloride) 250 mls @ 166.667 mls/hr IVPB Q12H [facility] Stop: 08/24/17 08:01 Methadone HCl (Methadone) 60 mg PO DAILY [facility] Last Admin: 08/22/17 10:00 Dose: 60 mg Mupirocin (Bactroban Ointment) 0 gm TOP DAILY [facility] Last Admin: 08/22/17 10:00 Dose: 1 applic Oxycodone/Acetaminophen (Percocet 5/325 Mg Tab) 1 tab PO Q4H PRN PRN Reason: pain Stop: 08/25/17 18:22 Saccharomyces Boulardii (Florastor) 250 mg PO BID [facility] Last Admin: 08/22/17 17:21 Dose: 250 mg Temazepam (Restoril) 30 mg PO HS PRN PRN Reason: Insomnia Last Admin: 08/22/17 00:45 Dose: 30 mg - Labs Labs: 08/18/17 17:59 08/18/17 17:59 PT 13.2 SECONDS (9.7-12.2) H 08/18/17 17:59 INR 1.2 08/18/17 17:59 APTT 35 SECONDS (21-34) H 08/18/17 17:59
[2017-08-23] MEDS: Piperacillin/Tazobact 3.375 GM in Sodium Chloride 0.9% 100 ML IVPB SCH ×2 (05:37→12:59)
[2017-08-23] MEDS: Oxycodone/Acetaminophen 5/325 mg Tab PO PRN ×3 (05:46→22:51)
[2017-08-23 07:36] LABS: PROTHROMBIN TIME 11.5 SECONDS (9.7-12.2)
[2017-08-23 07:43] LABS: BASO # 0.1 K/uL (0.0-0.2); BASO % 1.4 % (0.0-2.0); EOS # 0.4 K/uL (0.0-0.7); EOS % 4.8 % (0.0-4.0); HEMOGLOBIN 14.1 g/dL (12.0-18.0); LYMPH # 3.1 K/uL (1.0-4.3); LYMPH % 35.5 % (20.0-40.0); MEAN CORPUSCULAR HEMOGLOBIN 31.1 pg (27.0-31.0); MEAN CORPUSCULAR HGB CONC 33.8 g/dL (33.0-37.0); MEAN PLATELET VOLUME 8.7 fL (7.2-11.7); MONO # 0.6 K/uL (0.0-0.8); MONO % 7.3 % (0.0-10.0); NEUT # 4.4 K/uL (1.8-7.0); NRBC % 0.1 % (0.0-2.0); RBC 4.53 Mil/uL (4.40-5.90); RED CELL DISTRIBUTION WIDTH 14.4 % (11.5-14.5); WHITE BLOOD COUNT 8.6 K/uL (4.8-10.8)
[2017-08-23 07:53] LABS: MEAN CELL VOLUME 92.1 fL (80.0-94.0)
[2017-08-23 08:43] LABS: ALB/GLOB RATIO 1.2 (1.0-2.1); ALBUMIN 3.3 g/dL (3.5-5.0); ALT/SGPT 171 U/L (21-72); AST/SGOT 76 U/L (17-59); BLOOD UREA NITROGEN 22 mg/dL (9-20); GFR AFRICAN-AMERICAN > 60; GFR NON-AFRICAN AMERICAN > 60; MAGNESIUM 2.2 mg/dL (1.6-2.3)
--- NOTE | 2017-08-23 08:48 | PCM.PSYCH ---
Initial Psychiatric Evaluation - Initial Psychiatric Evaluation Type of Admission: Voluntary Legal Status: Capacity Chief Complaint (in patient's own words): "I am on methadone, I need someone to talk to, I think about killing myself sometimes." History of Present Illness and Precipitating Events: HPI: Pt is a 52 year old male, with 3 kids (34, 29, 15 years old), in a long-term relationship with current girlfriend. On disability, previously worked in [employer]. Pt states I can barely feed myself with whats left over after child support. Pt presented to the ED for evaluation of left toe pain and is being treated for osteomyelitis. Psychiatry has been consulted for management of methadone taper. Pt states he uses 10-15 bags of heroin daily, began shooting it 1 year ago. He started using in 2012 after his second hip replacement surgery. At first, he said he started using heroin because he couldnt afford his pain medication prescriptions and began detoxing, later stating that they stopped prescribing him medication 3 months after his surgery. Pt states he continues to use because he is addicted and because he has chronic pain in his hips, right shoulder and vertebrae problems in his lower back and neck. Pt states he sometimes snorts cocaine, but not regularly and does not seek it out. Pt denies the use of xanax, marijuana or alcohol, stating he has not had a drink in 17 years. Cigarettes: 1 ppd. Pt states he is depressed because his gf of 4 years has moved to [place] to live with and care for her elderly mother. Pt states he thinks about suicide almost daily for approximately a month, denies current SI or plan. Detox: twice. [facility] 09/2016. [place] 2006 Rehab: once. [facility] 2009 Psych hx: self-admitted to [facility] due to suicidal ideation after his divorce. Pt states he was diagnosed with severe depression and anxiety for which he was prescribed xanax and sleep medication but can no longer afford these medications. Family psych hx: Sister: she had schizophrenia and depression, brothers: MDD. All siblings substance abuse disorders, pt declined to elaborate. Pt denies substance abuse or psych history for either parent. PMHx: HTN, hyperlipidemia, endocarditis (tx at [facility], unconfirmed), currently being treated for osteomyelitis of left foot. Medical Problems: PMHx: HTN, hyperlipidemia, endocarditis (tx at [facility], unconfirmed), currently being treated for osteomyelitis of left foot. Current Medications: Active Medications Generic Name Dose Route Start Last Admin Trade Name Freq PRN Reason Stop Dose Admin Clonidine HCl 0.1 mg 08/23/17 08:46 Catapres PO Q4H PRN Symptoms of alcohol withdrawl Enoxaparin Sodium 40 mg 08/19/17 10:00 08/22/17 10:00 Lovenox SC 40 mg DAILY [facility] Administration Folic Acid 1 mg 08/23/17 10:00 Folic Acid PO DAILY [facility] Heparin Sodium (Porcine) 1,000 units 08/21/17 08:00 Heparin IVP ONCE [facility] Piperacillin Sod/Tazobactam 100 mls @ 100 mls/hr 08/20/17 13:45 08/23/17 05: 37 Sod 3.375 gm/ Sodium Chloride IVPB 100 mls/hr Q8H [facility] Administration Vancomycin HCl 1 gm/ Sodium 250 mls @ 166.667 mls/hr 08/23/17 08:00 Chloride IVPB 08/24/17 08:01 Q12H [facility] Lorazepam 1 mg 08/23/17 08:45 Ativan PO Q4H PRN Symptoms of alcohol withdrawl Lorazepam 0 mg 08/23/17 08:45 Ativan PO 08/28/17 08:44 .TAPER [facility] Taper Methadone HCl 60 mg 08/21/17 14:15 08/22/17 10:00 Methadone PO 60 mg DAILY [facility] Administration Multivitamins 1 tab 08/23/17 10:00 Hexavitamin PO DAILY [facility] Mupirocin 0 gm 08/20/17 10:30 08/22/17 10:00 Bactroban Ointment TOP 1 applic DAILY [facility] Administration Oxycodone/Acetaminophen 1 tab 08/22/17 18:21 08/23/17 05:46 Percocet 5/325 Mg Tab PO 08/25/17 18:22 1 tab Q4H PRN Administration pain Saccharomyces Boulardii 250 mg 08/22/17 18:00 08/22/17 17:21 Florastor PO 250 mg BID [facility] Administration Temazepam 30 mg 08/21/17 14:01 08/23/17 01:32 Restoril PO 30 mg HS PRN Administration Insomnia Thiamine HCl 100 mg 08/23/17 10:00 Vitamin B1 Tab PO DAILY [facility] Trazodone HCl 50 mg 08/23/17 08:45 Desyrel PO HS PRN Insomnia Past Psychiatric History - Past Psychiatric History Previous Treatment History: Inpatient Explanation of prior treatment: PMHx: HTN, hyperlipidemia, endocarditis (tx at [facility], unconfirmed), currently being treated for osteomyelitis of left foot. Pertinent Medical Hx (Current Medical&Sleep Prob, Allergies): Allergies Allergy/AdvReac Type Severity Reaction Status Date / Time No Known Allergies Allergy Verified 08/18/17 16:24 No Known Home Med 08/18/17 Review of Systems - Review of Systems All systems: reviewed and no additional remarkable complaints except - Psychiatric Psychiatric: Anxiety, Irritability Mental Status Examination - Personal Presentation Personal Presentation: Looks stated age - Affect Affect: Constricted, Depressed - Motor Activity Motor Activity: Calm - Reliability in Providing Information Reliability in Providing Information: Fair - Speech Speech: Organized - Mood Mood: Depressed, Anxious - Formal Thought Process Formal Thought Process: No Impairment - Obsessions/Compulsions Obsessions: No Compulsions: No - Cognitive Functions Orientation: Person, Place, Situation, Time Sensorium: Alert Attention/Concentration: Attentive Abstract Thinking: [place], As evidence by abstract perception of proverbs Estimate of Intelligence: Below average Judgement: Imparied, as evidence by: Poor judgement, Imparied, as evidence by: Lack of insight into illness - Risk Risk: Withdrawal, Diminished functioning - Limitations Limitations: Living alone DSM 5 DX - DSM 5 DSM 5 Diagnosis: Opioid use d/o severe Opioid withdrawal Major depressive disorder recurrent moderate - Recommended/Plan of Treatment Treatment Recommendations and Plan of Treatment: Opioid use d/o severe Opioid withdrawal Major depressive disorder recurrent moderate Methadoen taper Gabapentin for augmentation As needed medications All risks, benefits and alternatives of the meds discussed, and the pt agreed and understood. Refer to rehab or IOP, and self-help groups Smoking cessation with OK Nicotine patch - Smoking Cessation Smoking Cessation Initiated: No
[2017-08-23] MEDS: Saccharomyces Boulardi 250 mg Cap PO SCH ×2 (09:54→17:48)
[2017-08-23] MEDS: Multiple Vitamins Tab PO SCH (09:54)
--- NOTE | 2017-08-23 10:44 | CP.PCM.PN ---
Subjective - Date & Time of Evaluation Date of Evaluation: 08/23/17 Time of Evaluation: 10:42 - Subjective Subjective: PGY2 progress note for Dr. Newton Pt seen and examined at bedside. No acute events overnight. Pt is sitting comfortably. Denies having any CP, SOB, abd pain, N/V/D/C. He states he only had minimal pain in his left LE. Tolerating PO intake. 12 point ROS negative except for the above mentioned. Objective - Vital Signs/Intake and Output Vital Signs (last 24 hours): Temp Pulse Resp BP Pulse Ox 97.6 F 59 L 20 101/61 97 08/23/17 07:45 08/23/17 07:45 08/23/17 07:45 08/23/17 07:45 08/23/17 07:45 Intake and Output: 08/23/17 08/23/17 06:59 18:59 Intake Total 840 Output Total 300 Balance 540 - Medications Medications: Current Medications Clonidine HCl (Catapres) 0.1 mg PO Q4H PRN PRN Reason: Symptoms of alcohol withdrawl Enoxaparin Sodium (Lovenox) 40 mg SC DAILY [facility] Last Admin: 08/22/17 10:00 Dose: 40 mg Folic Acid (Folic Acid) 1 mg PO DAILY [facility] Last Admin: 08/23/17 09:59 Dose: 1 mg Heparin Sodium (Porcine) (Heparin) 1,000 units IVP ONCE [facility] Piperacillin Sod/Tazobactam (Sod 3.375 gm/ Sodium Chloride) 100 mls @ 100 mls/ hr IVPB Q8H [facility] Last Admin: 08/23/17 05:37 Dose: 100 mls/hr Vancomycin HCl 1 gm/ Sodium (Chloride) 250 mls @ 166.667 mls/hr IVPB Q12H [facility] Stop: 08/24/17 08:01 Last Admin: 08/23/17 08:58 Dose: 166.667 mls/hr Lorazepam (Ativan) 1 mg PO Q4H PRN PRN Reason: Symptoms of alcohol withdrawl Lorazepam (Ativan) 1 mg PO Q4 [facility] PRN Reason: Taper Stop: 08/28/17 08:44 Methadone HCl (Methadone) 60 mg PO DAILY [facility] Last Admin: 08/23/17 09:54 Dose: 60 mg Multivitamins (Hexavitamin) 1 tab PO DAILY [facility] Last Admin: 08/23/17 09:54 Dose: 1 tab Mupirocin (Bactroban Ointment) 0 gm TOP DAILY [facility] Last Admin: 08/22/17 10:00 Dose: 1 applic Oxycodone/Acetaminophen (Percocet 5/325 Mg Tab) 1 tab PO Q4H PRN PRN Reason: pain Stop: 08/25/17 18:22 Last Admin: 08/23/17 05:46 Dose: 1 tab Saccharomyces Boulardii (Florastor) 250 mg PO BID [facility] Last Admin: 08/23/17 09:54 Dose: 250 mg Temazepam (Restoril) 30 mg PO HS PRN PRN Reason: Insomnia Last Admin: 08/23/17 01:32 Dose: 30 mg Thiamine HCl (Vitamin B1 Tab) 100 mg PO DAILY [facility] Last Admin: 08/23/17 09:54 Dose: 100 mg Trazodone HCl (Desyrel) 50 mg PO HS PRN PRN Reason: Insomnia - Labs Labs: 08/23/17 07:13 08/23/17 07:15 PT 11.5 SECONDS (9.7-12.2) 08/23/17 07:15 INR 1.0 08/23/17 07:15 APTT 34 SECONDS (21-34) 08/23/17 07:15 - Constitutional Appears: Non-toxic, No Acute Distress - Head Exam Head Exam: ATRAUMATIC - Eye Exam Eye Exam: EOMI - ENT Exam ENT Exam: Mucous Membranes Moist - Respiratory Exam Respiratory Exam: Clear to Ausculation Bilateral. absent: Accessory Muscle Use , Rales, Rhonchi, Wheezes, Respiratory Distress - Cardiovascular Exam Cardiovascular Exam: REGULAR RHYTHM, +S1, +S2. absent: Gallop, Rubs, Murmur - GI/Abdominal Exam GI & Abdominal Exam: Soft, Normal Bowel Sounds. absent: Distended, Firm, Guarding, Rigid, Tenderness, Organomegaly - Extremities Exam Extremities Exam: absent: Pedal Edema, Tenderness - Neurological Exam Neurological Exam: Alert, Awake, Oriented x3 - Psychiatric Exam Psychiatric exam: Normal Affect, Normal Mood - Skin Skin Exam: Dry, Intact, Normal Color, Warm Assessment and Plan - Assessment and Plan (Free Text) Assessment: (1) Osteomyelitis of toe of left foot XRAY and WBC tagged nuclear medicine confirm osteomyelitis of 2nd toe. Continue Abx per ID recs. Currently on Vanc and Zosyn F/U Vanc troughs. Trough range should be between 15 and 20 On Florastor BID Podiatry consulted. F/U recs on whether pt needs surgery for toe (2) Peripheral vascular disease EDGAR are non-diagnostic bilaterally due to arterial wall calcifications F/U Vasc Surgery recommendations (3) Opioid abuse with opioid-induced disorder Psychiatry consulted- F/U recommendations On Methadone taper Spoke with patient at great length about effects of continued use (4) Transaminitis Will check hepatitis panel (4) Prophylactic measure Lovenox 40 SC daily Pepcid 20 mg po qd Discussed with attending. Management and planning per Dr. Newton
--- NOTE | 2017-08-23 12:38 | CP.PCM.PN ---
Subjective - Date & Time of Evaluation Date of Evaluation: 08/23/17 Time of Evaluation: 07:20 - Subjective Subjective: clinically same Objective - Vital Signs/Intake and Output Vital Signs (last 24 hours): Temp Pulse Resp BP Pulse Ox 97.6 F 59 L 20 101/61 97 08/23/17 07:45 08/23/17 07:45 08/23/17 07:45 08/23/17 07:45 08/23/17 07:45 Intake and Output: 08/23/17 08/23/17 06:59 18:59 Intake Total 840 Output Total 300 Balance 540 - Medications Medications: Current Medications Clonidine HCl (Catapres) 0.1 mg PO Q4H PRN PRN Reason: Symptoms of alcohol withdrawl Enoxaparin Sodium (Lovenox) 40 mg SC DAILY [facility] Last Admin: 08/22/17 10:00 Dose: 40 mg Famotidine (Pepcid) 20 mg PO DAILY [facility] Last Admin: 08/23/17 12:00 Dose: 20 mg Folic Acid (Folic Acid) 1 mg PO DAILY [facility] Last Admin: 08/23/17 09:59 Dose: 1 mg Heparin Sodium (Porcine) (Heparin) 1,000 units IVP ONCE [facility] Piperacillin Sod/Tazobactam (Sod 3.375 gm/ Sodium Chloride) 100 mls @ 100 mls/ hr IVPB Q8H [facility] Last Admin: 08/23/17 05:37 Dose: 100 mls/hr Vancomycin HCl 1 gm/ Sodium (Chloride) 250 mls @ 166.667 mls/hr IVPB Q12H [facility] Stop: 08/24/17 08:01 Last Admin: 08/23/17 08:58 Dose: 166.667 mls/hr Lorazepam (Ativan) 1 mg PO Q4H PRN PRN Reason: Symptoms of alcohol withdrawl Lorazepam (Ativan) 1 mg PO Q4 [facility] PRN Reason: Taper Stop: 08/28/17 08:44 Last Admin: 08/23/17 12:30 Dose: 1 mg Methadone HCl (Methadone) 60 mg PO DAILY [facility] Last Admin: 08/23/17 09:54 Dose: 60 mg Multivitamins (Hexavitamin) 1 tab PO DAILY [facility] Last Admin: 08/23/17 09:54 Dose: 1 tab Mupirocin (Bactroban Ointment) 0 gm TOP DAILY [facility] Last Admin: 08/22/17 10:00 Dose: 1 applic Oxycodone/Acetaminophen (Percocet 5/325 Mg Tab) 1 tab PO Q4H PRN PRN Reason: pain Stop: 08/25/17 18:22 Last Admin: 08/23/17 05:46 Dose: 1 tab Saccharomyces Boulardii (Florastor) 250 mg PO BID [facility] Last Admin: 08/23/17 09:54 Dose: 250 mg Temazepam (Restoril) 30 mg PO HS PRN PRN Reason: Insomnia Last Admin: 08/23/17 01:32 Dose: 30 mg Thiamine HCl (Vitamin B1 Tab) 100 mg PO DAILY [facility] Last Admin: 08/23/17 09:54 Dose: 100 mg Trazodone HCl (Desyrel) 50 mg PO HS PRN PRN Reason: Insomnia - Labs Labs: 08/23/17 07:13 08/23/17 07:15 PT 11.5 SECONDS (9.7-12.2) 08/23/17 07:15 INR 1.0 08/23/17 07:15 APTT 34 SECONDS (21-34) 08/23/17 07:15 - Constitutional Appears: Well - Head Exam Head Exam: ATRAUMATIC, NORMAL INSPECTION, NORMOCEPHALIC - Eye Exam Eye Exam: EOMI, Normal appearance, PERRL Pupil Exam: NORMAL ACCOMODATION, PERRL - ENT Exam ENT Exam: Mucous Membranes Moist, Normal Exam - Neck Exam Neck Exam: Full ROM, Normal Inspection. absent: Lymphadenopathy - Respiratory Exam Respiratory Exam: Decreased Breath Sounds - Cardiovascular Exam Cardiovascular Exam: REGULAR RHYTHM, +S1, +S2 - GI/Abdominal Exam GI & Abdominal Exam: Soft, Diminished Bowel Sounds - Rectal Exam Rectal Exam: Deferred
--- NOTE | 2017-08-23 13:53 | CP.PCM.CON ---
History of Present Illness - History of Present Illness History of Present Illness: 52 y/o with L. chronic osteomyelitis planned to have L. 2nd toe middle phalynx amputation On methadone No clinical CHF or Angina Normal BP No fevers, chills Cardiac Hx: No CAD No OH NO CVA - HTN; - DM + reported IE 2000 Rx with ABX Review of Systems - Review of Systems All systems: reviewed and no additional remarkable complaints except Past Patient History - Past Medical History & Family History Past Medical History?: Yes - Past Social History Smoking Status: Heavy Smoker > 10 Cigarettes Daily - CARDIAC Hx Hypertension: No - PULMONARY Hx Tuberculosis: No - NEUROLOGICAL Hx Seizures: No - HEMATOLOGICAL/ONCOLOGICAL Hx Human Immunodeficiency Virus (HIV): No - MUSCULOSKELETAL/RHEUMATOLOGICAL Hx Falls: No Other/Comment: per pt he has a bone degeration disorder unable to name it - GENITOURINARY/GYNECOLOGICAL Hx Sexually Transmitted Disorders: No - PSYCHIATRIC Hx Substance Use: Yes - SURGICAL HISTORY Hx Musculoskeletal Surgery: Yes (2 hip replacemnts 2009 2012) - ANESTHESIA Hx Anesthesia: Yes Hx Anesthesia Reactions: No Hx Malignant Hyperthermia: No Meds Allergies/Adverse Reactions: Allergies Allergy/AdvReac Type Severity Reaction Status Date / Time No Known Allergies Allergy Verified 08/18/17 16:24 - Medications Medications: Current Medications Clonidine HCl (Catapres) 0.1 mg PO Q4H PRN PRN Reason: Symptoms of alcohol withdrawl Enoxaparin Sodium (Lovenox) 40 mg SC DAILY [facility] Last Admin: 08/22/17 10:00 Dose: 40 mg Famotidine (Pepcid) 20 mg PO DAILY [facility] Last Admin: 08/23/17 12:00 Dose: 20 mg Folic Acid (Folic Acid) 1 mg PO DAILY [facility] Last Admin: 08/23/17 09:59 Dose: 1 mg Heparin Sodium (Porcine) (Heparin) 1,000 units IVP ONCE [facility] Piperacillin Sod/Tazobactam (Sod 3.375 gm/ Sodium Chloride) 100 mls @ 100 mls/ hr IVPB Q8H [facility] Last Admin: 08/23/17 12:59 Dose: 100 mls/hr Vancomycin HCl 1 gm/ Sodium (Chloride) 250 mls @ 166.667 mls/hr IVPB Q12H [facility] Stop: 08/24/17 08:01 Last Admin: 08/23/17 08:58 Dose: 166.667 mls/hr Lorazepam (Ativan) 1 mg PO Q4H PRN PRN Reason: Symptoms of alcohol withdrawl Lorazepam (Ativan) 1 mg PO Q4 [facility] PRN Reason: Taper Stop: 08/28/17 08:44 Last Admin: 08/23/17 12:30 Dose: 1 mg Methadone HCl (Methadone) 60 mg PO DAILY [facility] Last Admin: 08/23/17 09:54 Dose: 60 mg Multivitamins (Hexavitamin) 1 tab PO DAILY [facility] Last Admin: 08/23/17 09:54 Dose: 1 tab Mupirocin (Bactroban Ointment) 0 gm TOP DAILY [facility] Last Admin: 08/23/17 13:01 Dose: 1 applic Oxycodone/Acetaminophen (Percocet 5/325 Mg Tab) 1 tab PO Q4H PRN PRN Reason: pain Stop: 08/25/17 18:22 Last Admin: 08/23/17 05:46 Dose: 1 tab Saccharomyces Boulardii (Florastor) 250 mg PO BID [facility] Last Admin: 08/23/17 09:54 Dose: 250 mg Temazepam (Restoril) 30 mg PO HS PRN PRN Reason: Insomnia Last Admin: 08/23/17 01:32 Dose: 30 mg Thiamine HCl (Vitamin B1 Tab) 100 mg PO DAILY [facility] Last Admin: 08/23/17 09:54 Dose: 100 mg Trazodone HCl (Desyrel) 50 mg PO HS PRN PRN Reason: Insomnia Physical Exam - Constitutional Appears: No Acute Distress - Head Exam Head Exam: ATRAUMATIC, NORMAL INSPECTION, NORMOCEPHALIC - Eye Exam Eye Exam: EOMI, Normal appearance, PERRL - ENT Exam ENT Exam: Mucous Membranes Moist, Normal Oropharynx - Neck Exam Neck exam: Positive for: Full Rom, Normal Inspection. Negative for: Tenderness - Respiratory Exam Respiratory Exam: Clear to Auscultation Bilateral, NORMAL BREATHING PATTERN. absent: Rhonchi, Wheezes - Cardiovascular Exam Cardiovascular Exam: REGULAR RHYTHM, +S1, +S2. absent: Gallop, Systolic Murmur - GI/Abdominal Exam GI & Abdominal Exam: Normal Bowel Sounds, Soft. absent: Tenderness - Extremities Exam Extremities exam: Negative for: pedal edema - Neurological Exam Neurological exam: Alert, Oriented x3 - Psychiatric Exam Psychiatric exam: Normal Affect, Normal Mood - Skin Skin Exam: Normal Color, Warm Results - Vital Signs Recent Vital Signs: Last Vital Signs Temp 97.6 F 08/23/17 07:45 Pulse 59 L 08/23/17 07:45 Resp 20 08/23/17 07:45 BP 101/61 08/23/17 07:45 Pulse Ox 97 08/23/17 07:45 - Labs Result Diagrams: 08/23/17 07:13 08/23/17 07:15 Labs: Laboratory Results - last 24 hr 08/22/17 08/23/17 08/23/17 20:27 07:13 07:15 WBC 8.6 RBC 4.53 Hgb 14.1 Hct 41.8 MCV 92.1 D MCH 31.1 H MCHC 33.8 RDW 14.4 Plt Count 209 MPV 8.7 Neut % (Auto) 51.0 Lymph % (Auto) 35.5 Pierce % (Auto) 7.3 Eos % (Auto) 4.8 H Baso % (Auto) 1.4 Neut # (Auto) 4.4 Lymph # (Auto) 3.1 Pierce # (Auto) 0.6 Eos # (Auto) 0.4 Baso # (Auto) 0.1 PT 11.5 INR 1.0 APTT 34 Sodium Potassium Chloride Carbon Dioxide Anion Gap BUN Creatinine Est GFR ( Amer) Est GFR (Non-Af Amer) Random Glucose Calcium Phosphorus Magnesium Total Bilirubin AST ALT Alkaline Phosphatase Total Protein Albumin Globulin Albumin/Globulin Ratio Vancomycin Trough 7.7 08/23/17 07:15 WBC RBC Hgb Hct MCV MCH MCHC RDW Plt Count MPV Neut % (Auto) Lymph % (Auto) Pierce % (Auto) Eos % (Auto) Baso % (Auto) Neut # (Auto) Lymph # (Auto) Pierce # (Auto) Eos # (Auto) Baso # (Auto) PT INR APTT Sodium 137 Potassium 4.7 Chloride 105 Carbon Dioxide 23 Anion Gap 14 BUN 22 H Creatinine 0.9 Est GFR ( Amer) > 60 Est GFR (Non-Af Amer) > 60 Random Glucose 96 Calcium 8.0 L Phosphorus 4.0 Magnesium 2.2 Total Bilirubin 0.4 AST 76 H D ALT 171 H Alkaline Phosphatase 79 Total Protein 6.2 L Albumin 3.3 L Globulin 2.8 Albumin/Globulin Ratio 1.2 Vancomycin Trough - EKG Data EKG Interpreted by: Myself EKG shows normal: Sinus rhythm Rate: Normal - Imaging and Cardiology Chest x-ray Status: Image reviewed by me Assessment & Plan - Assessment and Plan (Free Text) Assessment: 1. Preop for L. foot digit amputation for osteomyeltis --> on ABX 2. No reported hx of HTN, DM, OH or CVA 3. Hx of anxiety Stable on Rx 3. Hx of IE 2010 Rx with ABX >EKG NSR, Normal > exam: NO CHF or pathologically suspicious murmurs > No volume overload; normal Creat > No angina > Stable BP on HR Plan: Acceptable risk for procedure: no additional testing needed Additional: Patient will need ABX prophylaxis for any future dental or GI/Urology procedures as per guidelines
[2017-08-23 14:43] LABS: HEPATITIS B SURFACE AG Negative (NEGATIVE)
[2017-08-23 14:49] LABS: HEPATITIS A IGM NEGATIVE (NEGATIVE); HEPATITIS B CORE AB NEGATIVE (NEGATIVE)
[2017-08-23 16:30] LABS: HEPATITIS C ANTIBODY REACTIVE (NEGATIVE)
--- NOTE | 2017-08-23 19:42 | PN ---
DATE: SUBJECTIVE: The patient is seen, the patient is doing better, tolerating methadone and Restoril p.r.n. The patient was earlier seen by Dr. Calle and was given some clonidine, also trazodone and Ativan, but we will try to reduce these medications as the patient has been doing well with just methadone and Restoril combination. The patient will be going for surgery in the morning on his left foot, possible partial amputation of the second toe. The patient has osteomyelitis. VITAL SIGNS: Temperature 97.6, pulse is 59, blood pressure 101/61, respirations 20, oxygen saturation is 97%. REVIEW OF SYSTEMS: GENERAL: The patient is in room, alert and oriented x3, seems to be more comfortable, complaining of mild pain in his left foot. Other than that, he is doing well. SKIN: No diaphoresis. HEENT: No headache. No dizziness. NECK: Supple. RESPIRATORY: No dyspnea. CARDIOVASCULAR: No chest pain. GASTROINTESTINAL: He is eating well. EXTREMITIES: Has mild pain as stated. MUSCULOSKELETAL: Weakness improving. NEUROLOGIC: Alert and oriented x3. GENITOURINARY: No dysuria. MENTAL STATUS EXAMINATION: A very tall male who looks stated age, alert and oriented x3. Mood is calm. Affect is reactive. Speech is spontaneous. Thought process, coherent. Thought content, no psychosis. The patient seems to be comfortable with current doses of methadone and Restoril. No psychosis. No suicidal or homicidal ideation. Attention and memory seems to be fair. Insight and judgment fair. Impulse control is fair. IMPRESSION: History of polysubstance dependence, opiate withdrawal, opiate dependence, cocaine dependence, osteomyelitis of the second left toe. PLAN AND RECOMMENDATIONS: The patient is seen, medications reviewed. We will continue present psych medications. The patient is for surgery possibly in the morning. Continue treatment plan as outlined. Continue antibiotics as ordered. Olivier Abbott MD
--- NOTE | 2017-08-23 20:11 | CP.PCM.PN ---
Subjective - Date & Time of Evaluation Date of Evaluation: 08/23/17 Time of Evaluation: 20:11 Objective - Vital Signs/Intake and Output Vital Signs (last 24 hours): Temp Pulse Resp BP Pulse Ox 97.4 F L 58 L 20 111/64 97 08/23/17 16:00 08/23/17 16:00 08/23/17 16:00 08/23/17 16:00 08/23/17 16:00 Intake and Output: 08/23/17 08/24/17 18:59 06:59 Intake Total 950 Balance 950 - Medications Medications: Current Medications Enoxaparin Sodium (Lovenox) 40 mg SC DAILY [facility] Last Admin: 08/22/17 10:00 Dose: 40 mg Famotidine (Pepcid) 20 mg PO DAILY [facility] Last Admin: 08/23/17 12:00 Dose: 20 mg Folic Acid (Folic Acid) 1 mg PO DAILY [facility] Last Admin: 08/23/17 09:59 Dose: 1 mg Heparin Sodium (Porcine) (Heparin) 1,000 units IVP ONCE [facility] Vancomycin HCl 1 gm/ Sodium (Chloride) 250 mls @ 166.667 mls/hr IVPB Q12H [facility] Stop: 08/23/17 22:00 Last Admin: 08/23/17 08:58 Dose: 166.667 mls/hr Vancomycin/Sodium Chloride (Vancomycin 1 Gm/Ns 200 Ml) 1 gm in 200 mls @ 133.333 mls/hr IVPB Q12H [facility] Stop: 08/24/17 08:01 Piperacillin Sod/Tazobactam Sod (Zosyn 3.375 Gm Iv Premix) 3.375 gm in 50 mls @ 100 mls/hr IVPB Q8H [facility] Methadone HCl (Methadone) 60 mg PO DAILY [facility] Last Admin: 08/23/17 09:54 Dose: 60 mg Multivitamins (Hexavitamin) 1 tab PO DAILY [facility] Last Admin: 08/23/17 09:54 Dose: 1 tab Mupirocin (Bactroban Ointment) 0 gm TOP DAILY [facility] Last Admin: 08/23/17 13:01 Dose: 1 applic Oxycodone/Acetaminophen (Percocet 5/325 Mg Tab) 1 tab PO Q4H PRN PRN Reason: pain Stop: 08/25/17 18:22 Last Admin: 08/23/17 17:47 Dose: 1 tab Saccharomyces Boulardii (Florastor) 250 mg PO BID [facility] Last Admin: 08/23/17 17:48 Dose: 250 mg Temazepam (Restoril) 30 mg PO HS PRN PRN Reason: Insomnia Last Admin: 08/23/17 01:32 Dose: 30 mg Thiamine HCl (Vitamin B1 Tab) 100 mg PO DAILY [facility] Last Admin: 08/23/17 09:54 Dose: 100 mg - Labs Labs: 08/23/17 07:13 08/23/17 07:15 PT 11.5 SECONDS (9.7-12.2) 08/23/17 07:15 INR 1.0 08/23/17 07:15 APTT 34 SECONDS (21-34) 08/23/17 07:15
--- NOTE | 2017-08-23 20:32 | CP.PCM.PN ---
Subjective - Date & Time of Evaluation Date of Evaluation: 08/23/17 Time of Evaluation: 14:00 - Subjective Subjective: Podiatry Progress Note - Dr. Croft 52 y/o male seen at bedside for infected 2nd digit ulceration and 3rd toe pain. Patient is seen resting comfortably in bed, in NAD, and AA0x3. Patient denies acute overnight events. Patient reports pain to left foot is well controlled at this time, graded 3/10 at this time. Patient denies calf tenderness. Patient denies n/v/sob/cp/chills or fever. Patient has no new pedal complaints. Objective - Vital Signs/Intake and Output Vital Signs (last 24 hours): Temp Pulse Resp BP Pulse Ox 97.4 F L 58 L 20 111/64 97 08/23/17 16:00 08/23/17 16:00 08/23/17 16:00 08/23/17 16:00 08/23/17 16:00 Intake and Output: 08/23/17 08/24/17 18:59 06:59 Intake Total 950 Balance 950 - Medications Medications: Current Medications Enoxaparin Sodium (Lovenox) 40 mg SC DAILY [facility] Last Admin: 08/22/17 10:00 Dose: 40 mg Famotidine (Pepcid) 20 mg PO DAILY [facility] Last Admin: 08/23/17 12:00 Dose: 20 mg Folic Acid (Folic Acid) 1 mg PO DAILY [facility] Last Admin: 08/23/17 09:59 Dose: 1 mg Heparin Sodium (Porcine) (Heparin) 1,000 units IVP ONCE [facility] Vancomycin HCl 1 gm/ Sodium (Chloride) 250 mls @ 166.667 mls/hr IVPB Q12H [facility] Stop: 08/23/17 22:00 Last Admin: 08/23/17 08:58 Dose: 166.667 mls/hr Vancomycin/Sodium Chloride (Vancomycin 1 Gm/Ns 200 Ml) 1 gm in 200 mls @ 133.333 mls/hr IVPB Q12H [facility] Stop: 08/24/17 08:01 Piperacillin Sod/Tazobactam Sod (Zosyn 3.375 Gm Iv Premix) 3.375 gm in 50 mls @ 100 mls/hr IVPB Q8H [facility] Methadone HCl (Methadone) 60 mg PO DAILY [facility] Last Admin: 08/23/17 09:54 Dose: 60 mg Multivitamins (Hexavitamin) 1 tab PO DAILY [facility] Last Admin: 08/23/17 09:54 Dose: 1 tab Mupirocin (Bactroban Ointment) 0 gm TOP DAILY [facility] Last Admin: 08/23/17 13:01 Dose: 1 applic Oxycodone/Acetaminophen (Percocet 5/325 Mg Tab) 1 tab PO Q4H PRN PRN Reason: pain Stop: 08/25/17 18:22 Last Admin: 08/23/17 17:47 Dose: 1 tab Saccharomyces Boulardii (Florastor) 250 mg PO BID [facility] Last Admin: 08/23/17 17:48 Dose: 250 mg Temazepam (Restoril) 30 mg PO HS PRN PRN Reason: Insomnia Last Admin: 08/23/17 01:32 Dose: 30 mg Thiamine HCl (Vitamin B1 Tab) 100 mg PO DAILY [facility] Last Admin: 08/23/17 09:54 Dose: 100 mg - Labs Labs: 08/23/17 07:13 08/23/17 07:15 PT 11.5 SECONDS (9.7-12.2) 08/23/17 07:15 INR 1.0 08/23/17 07:15 APTT 34 SECONDS (21-34) 08/23/17 07:15 - Constitutional Appears: Well, Non-toxic, No Acute Distress - Extremities Exam Additional comments: Vasc: DP and PT 2/4 bilaterally, CFT < 3 seconds to the digits, edema noted to the left foot 2nd and 3rd digit and forefoot. MUSK: Moderate tenderness to palpation with palpation to the entire 2nd and mild pain to the 3rd digit. Neuro: Gross protective sensation diminished DERM: Superficial ulceration noted to the distal tip of the left 2nd digit with a 2 cm diameter x 0.1 cm deep. Minor erythema noted to the 2nd digit, no malodor noted from the ulceration, no purulence at the time of visitation, no active drainage, no tunneling or undermining noted, no probe to bone. - Neurological Exam Neurological Exam: Alert, Awake, Oriented x3 Assessment and Plan - Assessment and Plan (Free Text) Assessment: 52 y/o male with left 2nd digit ulceration (+) for distal phalynx OM. Left 3rd toe pain Plan: Patient examined and evaluated. Discussed plan in detail with attending Dr. Croft. Labs, charts, vitals reviewed (afebrile, absent leukocytosis) X-ray results- Left foot destructive changes of disal 2nd digit. OM of distal tuft distal phalanx 2nd digit L Ceretec WBC Bone scan results- positive for left 2nd digit distal phalynx OM. Wound culture left foot taken (08/18/17) results= Corynebacterium species Continue IV abx per ID: Vancomycin and Zosyn Arterial duplex results- distal pulsitile wave forms however diffuse bilateral vessel calcification. Discussed with vascular specialist Dr. Ribera who recommends distal left 2nd digit amputation. Cleansed ulceration with saline and dressed with mupricion and DSD. Pt to remain full weightbearing as tolerated. Discussed with patient in detail indication for left second digit amputation. Discussed risks, benefits, complications, and surgical approach,and potential alternatives for digital amputation. Pt verbalizes understanding. Medical Clearance obtained, pt cleared as mild risk for surgery. Pt scheduled for OR 08/24/17 in AM. Pt Placed NPO at midnight. Lovenox Held. Will continue to follow while in house.
--- NOTE | 2017-08-23 21:08 | CP.PCM.PN ---
Subjective - Date & Time of Evaluation Date of Evaluation: 08/23/17 Time of Evaluation: 21:01 - Subjective Subjective: Pt seen this PM and pt state he has pain in toe 2 left level 10 at worse .He states pain in toe is unbearable . I discussed risks ,benefit and alternatives of to amputation including 6 wks iv antibiotics . I instructed patient toe is swollen ,painful and distal aspect is boggy l and his lifestyle which requires a great deal of activity makes for poor prognoses for conservative treatment . Patient understands and consents to amputation of toe with bone infection . Objective - Vital Signs/Intake and Output Vital Signs (last 24 hours): Temp Pulse Resp BP Pulse Ox 97.4 F L 58 L 20 111/64 97 08/23/17 16:00 08/23/17 16:00 08/23/17 16:00 08/23/17 16:00 08/23/17 16:00 Intake and Output: 08/23/17 08/24/17 18:59 06:59 Intake Total 950 Balance 950 - Medications Medications: Current Medications Enoxaparin Sodium (Lovenox) 40 mg SC DAILY [facility] Last Admin: 08/22/17 10:00 Dose: 40 mg Famotidine (Pepcid) 20 mg PO DAILY [facility] Last Admin: 08/23/17 12:00 Dose: 20 mg Folic Acid (Folic Acid) 1 mg PO DAILY [facility] Last Admin: 08/23/17 09:59 Dose: 1 mg Heparin Sodium (Porcine) (Heparin) 1,000 units IVP ONCE [facility] Vancomycin HCl 1 gm/ Sodium (Chloride) 250 mls @ 166.667 mls/hr IVPB Q12H [facility] Stop: 08/23/17 22:00 Last Admin: 08/23/17 08:58 Dose: 166.667 mls/hr Vancomycin/Sodium Chloride (Vancomycin 1 Gm/Ns 200 Ml) 1 gm in 200 mls @ 133.333 mls/hr IVPB Q12H [facility] Stop: 08/24/17 08:01 Piperacillin Sod/Tazobactam Sod (Zosyn 3.375 Gm Iv Premix) 3.375 gm in 50 mls @ 100 mls/hr IVPB Q8H [facility] Methadone HCl (Methadone) 60 mg PO DAILY [facility] Last Admin: 08/23/17 09:54 Dose: 60 mg Multivitamins (Hexavitamin) 1 tab PO DAILY [facility] Last Admin: 08/23/17 09:54 Dose: 1 tab Mupirocin (Bactroban Ointment) 0 gm TOP DAILY [facility] Last Admin: 08/23/17 13:01 Dose: 1 applic Oxycodone/Acetaminophen (Percocet 5/325 Mg Tab) 1 tab PO Q4H PRN PRN Reason: pain Stop: 08/25/17 18:22 Last Admin: 08/23/17 17:47 Dose: 1 tab Saccharomyces Boulardii (Florastor) 250 mg PO BID [facility] Last Admin: 08/23/17 17:48 Dose: 250 mg Temazepam (Restoril) 30 mg PO HS PRN PRN Reason: Insomnia Last Admin: 08/23/17 01:32 Dose: 30 mg Thiamine HCl (Vitamin B1 Tab) 100 mg PO DAILY [facility] Last Admin: 08/23/17 09:54 Dose: 100 mg - Labs Labs: 08/23/17 07:13 08/23/17 07:15 PT 11.5 SECONDS (9.7-12.2) 08/23/17 07:15 INR 1.0 08/23/17 07:15 APTT 34 SECONDS (21-34) 08/23/17 07:15
[2017-08-23] MEDS: Piperacill/Tazo 3.375gm in Dex 3.375 GM/50 ML BAG IVPB SCH (22:52)
[2017-08-24 05:14] LABS: BASO % 0.3 % (0.0-2.0); EOS # 0.4 K/uL (0.0-0.7); EOS % 4.8 % (0.0-4.0); HEMOGLOBIN 13.8 g/dL (12.0-18.0); LYMPH # 2.9 K/uL (1.0-4.3); LYMPH % 34.7 % (20.0-40.0); MEAN CELL VOLUME 90.4 fL (80.0-94.0); MEAN CORPUSCULAR HEMOGLOBIN 31.7 pg (27.0-31.0); MEAN CORPUSCULAR HGB CONC 35.1 g/dL (33.0-37.0); MEAN PLATELET VOLUME 8.6 fL (7.2-11.7); MONO # 0.7 K/uL (0.0-0.8); MONO % 8.3 % (0.0-10.0); NEUT # 4.3 K/uL (1.8-7.0); NEUT % 51.9 % (50.0-75.0); NRBC % 0.1 % (0.0-2.0); RBC 4.36 Mil/uL (4.40-5.90); RED CELL DISTRIBUTION WIDTH 14.4 % (11.5-14.5); WHITE BLOOD COUNT 8.4 K/uL (4.8-10.8)
[2017-08-24] MEDS: Piperacill/Tazo 3.375gm in Dex 3.375 GM/50 ML BAG IVPB SCH ×3 (05:18→21:05)
[2017-08-24 05:39] LABS: ALB/GLOB RATIO 1.1 (1.0-2.1); ALBUMIN 3.5 g/dL (3.5-5.0); ALT/SGPT 173 U/L (21-72); AST/SGOT 88 U/L (17-59); BLOOD UREA NITROGEN 24 mg/dL (9-20); CALCIUM 8.4 mg/dl (8.6-10.4); GFR AFRICAN-AMERICAN > 60; GFR NON-AFRICAN AMERICAN > 60
[2017-08-24] MEDS ORDERED: Bupivacaine HCl 0.5% PF (10 ml) Inj ONE ×2 (07:24→07:25)
[2017-08-24] MEDS ORDERED: Lidocaine 1% Inj (20ml) ONE (07:25)
[2017-08-24] MEDS ORDERED: Midazolam 2 MG/2 ML VIAL ONE (07:59)
[2017-08-24] MEDS ORDERED: Propofol 10 mg/ml Inj (20 ML) ONE (08:00)
[2017-08-24] MEDS ORDERED: Lidocaine Hydrochloride 5 ML INJ ONE (08:00)
[2017-08-24] MEDS ORDERED: Vancomycin 1 gm/NS 200 ml 1 GM/200 ML BAG IVPB SCH (08:00)
[2017-08-24] MEDS ORDERED: Vancomycin 1 gm/D5W 200 ml 1 GM/200 ML BAG IVPB ONE (08:11)
[2017-08-24] MEDS ORDERED: Labetalol 25mg/5ml Syringe ONE (08:21)
[2017-08-24] MEDS ORDERED: HYDROmorphone 0.5 mg/0.5 ml ISec IVP PRN (08:53)
--- NOTE | 2017-08-24 08:54 | PCM.SURG1 ---
Surgeon's Initial Post Op Note - Surgeon's Notes Surgeon: Dr. Paulino Croft, DPM Student Activities Director: Lilian Lucio PGY2 Type of Anesthesia: IV Sedation, Local (9mL 1:1 mixture of 0.5% Marcaine plain to 1% lidocaine plain) Anesthesia Administered By: Dr. Richie MD Pre-Operative Diagnosis: Left 2nd digit osteomyelitis Operative Findings: See dictation Post-Operative Diagnosis: Left 2nd digit osteomyelitis Operation Performed: Left foot 2nd digit partial amputation. Specimen/Specimens Removed: 1) Left foot 2nd toe partial toe-bone and soft tissue. 2) Left foot 2nd digit proximal phalynx head. Estimated Blood Loss: EBL {In ML}: 5 Blood Products Given: N/A Drains Used: No Drains Post-Op Condition: Good Date of Surgery/Procedure: 08/24/17 Time of Surgery/Procedure: 08:54
[2017-08-24] MEDS: Enoxaparin 40 mg Syringe SC SCH (11:00)
[2017-08-24] MEDS ORDERED: Methadone 40 mg Tab PO SCH (11:00)
[2017-08-24] MEDS: Saccharomyces Boulardi 250 mg Cap PO SCH ×2 (11:00→17:33)
[2017-08-24] MEDS: Multiple Vitamins Tab PO SCH (11:00)
--- NOTE | 2017-08-24 11:32 | CP.PCM.PN ---
Subjective - Date & Time of Evaluation Date of Evaluation: 08/24/17 Time of Evaluation: 11:29 - Subjective Subjective: PGY2 progress note for Dr. Newton Pt seen and examined at bedside. Pt is s/p left 2nd toe amputation. Complains of significant pain in the left foot even after receiving pain medication. Denies having any CP, SOB, abd pain, N/V/D/C, F/C. Patient tolerating diet and passing gas. Objective - Vital Signs/Intake and Output Vital Signs (last 24 hours): Temp Pulse Resp BP Pulse Ox 97.4 F L 58 L 20 116/72 97 08/24/17 10:19 08/24/17 10:19 08/24/17 10:19 08/24/17 10:19 08/24/17 10:19 Intake and Output: 08/24/17 08/24/17 06:59 18:59 Intake Total 550 800 Output Total 1000 Balance -450 800 - Medications Medications: Current Medications Acetaminophen (Tylenol 325mg Tab) 650 mg PO Q6 PRN PRN Reason: Pain, Mild (1-3) Enoxaparin Sodium (Lovenox) 40 mg SC DAILY [facility] Last Admin: 08/22/17 10:00 Dose: 40 mg Famotidine (Pepcid) 20 mg PO DAILY [facility] Last Admin: 08/23/17 12:00 Dose: 20 mg Folic Acid (Folic Acid) 1 mg PO DAILY [facility] Last Admin: 08/23/17 09:59 Dose: 1 mg Piperacillin Sod/Tazobactam Sod (Zosyn 3.375 Gm Iv Premix) 3.375 gm in 50 mls @ 100 mls/hr IVPB Q8H [facility] Last Admin: 08/24/17 05:18 Dose: 100 mls/hr Methadone HCl (Methadose) 40 mg PO DAILY [facility] Methadone HCl (Methadone) 10 mg PO DAILY [facility] Multivitamins (Hexavitamin) 1 tab PO DAILY [facility] Last Admin: 08/23/17 09:54 Dose: 1 tab Mupirocin (Bactroban Ointment) 0 gm TOP DAILY [facility] Last Admin: 08/24/17 10:08 Dose: Not Given Oxycodone/Acetaminophen (Percocet 5/325 Mg Tab) 1 tab PO Q4H PRN PRN Reason: pain Stop: 08/25/17 18:22 Last Admin: 08/23/17 22:51 Dose: 1 tab Saccharomyces Evedii (Florastor) 250 mg PO BID [facility] Last Admin: 08/23/17 17:48 Dose: 250 mg Temazepam (Restoril) 30 mg PO HS PRN PRN Reason: Insomnia Last Admin: 08/24/17 00:23 Dose: 30 mg Thiamine HCl (Vitamin B1 Tab) 100 mg PO DAILY [facility] Last Admin: 08/23/17 09:54 Dose: 100 mg - Labs Labs: 08/24/17 05:10 08/24/17 05:10 PT 11.5 SECONDS (9.7-12.2) 08/23/17 07:15 INR 1.0 08/23/17 07:15 APTT 34 SECONDS (21-34) 08/23/17 07:15 - Constitutional Appears: Non-toxic, No Acute Distress - Head Exam Head Exam: ATRAUMATIC - ENT Exam ENT Exam: Mucous Membranes Moist - Respiratory Exam Respiratory Exam: Clear to Ausculation Bilateral. absent: Accessory Muscle Use , Rales, Rhonchi, Wheezes, Respiratory Distress - Cardiovascular Exam Cardiovascular Exam: REGULAR RHYTHM, +S1, +S2. absent: Gallop, Rubs, Murmur - GI/Abdominal Exam GI & Abdominal Exam: Soft, Normal Bowel Sounds. absent: Distended, Firm, Guarding, Rigid, Tenderness, Organomegaly - Extremities Exam Extremities Exam: absent: Pedal Edema, Tenderness - Neurological Exam Neurological Exam: Alert, Awake, Oriented x3 - Psychiatric Exam Psychiatric exam: Normal Affect, Normal Mood - Skin Skin Exam: Dry, Intact, Normal Color, Warm Assessment and Plan - Assessment and Plan (Free Text) Assessment: (1) Osteomyelitis of toe of left foot s/p amputation POD #0 Pt underwent amputation today with Dr. Croft Pain management with Percocet 1 tab po q4, tylenol 650 mg po q6 Continue Abx per ID recs. Currently on Zosyn. Per ID will continue Zosyn for 7 more days in rehab F/U Vanc troughs. Trough range should be between 15 and 20 On Florastor BID (2) Peripheral vascular disease EDGAR are non-diagnostic bilaterally due to arterial wall calcifications F/U Vasc Surgery recommendations (3) Opioid abuse with opioid-induced disorder Psychiatry consulted- F/U recommendations On Methadone taper. will need to discuss methadone tapering with psych for patient when he goes to rehab Spoke with patient at great length about effects of continued use (4) Transaminitis Will check hepatitis panel (4) Prophylactic measure Lovenox 40 SC daily Pepcid 20 mg po qd Discussed with attending. Management and planning per Dr. Newton
--- NOTE | 2017-08-24 12:12 | CARD ---
APPROVED REPORT EKG Measurement Heart [id number] <Conclusion> Sinus bradycardia Otherwise normal ECG
--- NOTE | 2017-08-24 12:54 | PN ---
DATE: 08/24/2017 SUBJECTIVE: The patient is seen. The patient admitted for surgery in his left second toe which he told his doctor it was amputated. The patient will be going for subacute rehab and has agreed to be weaned off from his methadone. The patient was given methadone to be detox today with drop a in dose from 60 mg to 50 mg daily. The patient has been having signs and symptoms of withdrawal and is complaining of pain despite going for surgery. PHYSICAL EXAMINATION: GENERAL: He is cooperative. VITAL SIGNS: Temperature 97.4, pulse 58, blood pressure 116/70, respirations 20, and oxygen saturation is 97%. REVIEW OF SYSTEMS: GENERAL: The patient is alert and oriented x3, ambulating with a wheel chair, status post surgery in his left foot. SKIN: No diaphoresis. HEENT: No headache. No dizziness. NECK: Supple. RESPIRATORY: No dyspnea. CARDIOVASCULAR: No chest pain. GASTROINTESTINAL: He is eating well. EXTREMITIES: Mild pain in his surgical site, ambulating with a wheelchair. MUSCULOSKELETAL: Weakness improving. NEUROLOGIC: Alert and oriented x3. GENITOURINARY: No urinary problems. The patient is also sleeping well with Restoril p.r.n. MENTAL STATUS EXAMINATION: A tall male who looks stated age, oriented x3. Mood is dysphoric. Affect is reactive. Speech is spontaneous. Thought process, coherent. Thought content, the patient has agreed to be weaned off slowly from the methadone and be weaned for subacute rehab. No psychosis. No suicidal or homicidal ideation. Attention and memory seems to be fair. Insight and judgment fair. Impulse control is fair. IMPRESSION: History of opiate dependence, opiate withdrawal, osteomyelitis of the left second toe with history of peripheral vascular disease. PLAN AND RECOMMENDATIONS: We reduced his dose of methadone today to 50 mg daily. Continue Restoril p.r.n. is ordered. Continue pain meds as ordered. Tomorrow, we will drop his dose to 40. The patient is for possible subacute rehab once medically cleared. Olivier Abbott MD
--- NOTE | 2017-08-24 13:03 | CP.PCM.PN ---
Subjective - Date & Time of Evaluation Date of Evaluation: 08/24/17 Time of Evaluation: 13:01 - Subjective Subjective: Patient tolerated procedure : Left foot 2nd digit partial amputation. without any acute cardio-pulmonary events: Vitals stable Labs WNL with chronic mild transaminitis. Cont present RX: no new changes from cardio Will sign off Objective - Vital Signs/Intake and Output Vital Signs (last 24 hours): Temp Pulse Resp BP Pulse Ox 97.4 F L 58 L 20 116/72 97 08/24/17 10:19 08/24/17 10:19 08/24/17 10:19 08/24/17 10:19 08/24/17 10:19 Intake and Output: 08/24/17 08/24/17 06:59 18:59 Intake Total 550 800 Output Total 1000 Balance -450 800 - Medications Medications: Current Medications Acetaminophen (Tylenol 325mg Tab) 650 mg PO Q6 PRN PRN Reason: Pain, Mild (1-3) Enoxaparin Sodium (Lovenox) 40 mg SC DAILY [facility] Last Admin: 08/24/17 11:00 Dose: 40 mg Famotidine (Pepcid) 20 mg PO DAILY [facility] Last Admin: 08/24/17 11:00 Dose: 20 mg Folic Acid (Folic Acid) 1 mg PO DAILY [facility] Last Admin: 08/24/17 11:00 Dose: 1 mg Piperacillin Sod/Tazobactam Sod (Zosyn 3.375 Gm Iv Premix) 3.375 gm in 50 mls @ 100 mls/hr IVPB Q8H [facility] Last Admin: 08/24/17 05:18 Dose: 100 mls/hr Methadone HCl (Methadose) 40 mg PO DAILY [facility] Last Admin: 08/24/17 11:00 Dose: 40 mg Methadone HCl (Methadone) 10 mg PO DAILY [facility] Multivitamins (Hexavitamin) 1 tab PO DAILY [facility] Last Admin: 08/24/17 11:00 Dose: 1 tab Mupirocin (Bactroban Ointment) 0 gm TOP DAILY [facility] Last Admin: 08/24/17 10:08 Dose: Not Given Oxycodone/Acetaminophen (Percocet 5/325 Mg Tab) 1 tab PO Q4H PRN PRN Reason: pain Stop: 08/25/17 18:22 Last Admin: 08/23/17 22:51 Dose: 1 tab Saccharomyces Boulardii (Florastor) 250 mg PO BID [facility] Last Admin: 08/24/17 11:00 Dose: 250 mg Temazepam (Restoril) 30 mg PO HS PRN PRN Reason: Insomnia Last Admin: 08/24/17 00:23 Dose: 30 mg Thiamine HCl (Vitamin B1 Tab) 100 mg PO DAILY [facility] Last Admin: 08/24/17 11:00 Dose: 100 mg - Labs Labs: 08/24/17 05:10 08/24/17 05:10 PT 11.5 SECONDS (9.7-12.2) 08/23/17 07:15 INR 1.0 08/23/17 07:15 APTT 34 SECONDS (21-34) 08/23/17 07:15
[2017-08-24] MEDS: Oxycodone/Acetaminophen 5/325 mg Tab PO PRN ×2 (14:00→19:58)
--- NOTE | 2017-08-24 17:33 | CP.PCM.PN ---
Subjective - Date & Time of Evaluation Date of Evaluation: 08/24/17 Time of Evaluation: 07:00 - Subjective Subjective: stable s/p amp iv rx reordered Objective - Vital Signs/Intake and Output Vital Signs (last 24 hours): Temp Pulse Resp BP Pulse Ox 97.3 F L 64 20 116/96 H 96 08/24/17 16:00 08/24/17 16:00 08/24/17 16:00 08/24/17 16:00 08/24/17 16:00 Intake and Output: 08/24/17 08/24/17 06:59 18:59 Intake Total 550 1750 Output Total 1000 500 Balance -450 1250 - Medications Medications: Current Medications Acetaminophen (Tylenol 325mg Tab) 650 mg PO Q6 PRN PRN Reason: Pain, Mild (1-3) Enoxaparin Sodium (Lovenox) 40 mg SC DAILY [facility] Last Admin: 08/24/17 11:00 Dose: 40 mg Famotidine (Pepcid) 20 mg PO DAILY [facility] Last Admin: 08/24/17 11:00 Dose: 20 mg Folic Acid (Folic Acid) 1 mg PO DAILY [facility] Last Admin: 08/24/17 11:00 Dose: 1 mg Piperacillin Sod/Tazobactam Sod (Zosyn 3.375 Gm Iv Premix) 3.375 gm in 50 mls @ 100 mls/hr IVPB Q8H [facility] Last Admin: 08/24/17 13:11 Dose: 100 mls/hr Methadone HCl (Methadose) 40 mg PO DAILY [facility] Last Admin: 08/24/17 11:00 Dose: 40 mg Methadone HCl (Methadone) 10 mg PO DAILY [facility] Multivitamins (Hexavitamin) 1 tab PO DAILY [facility] Last Admin: 08/24/17 11:00 Dose: 1 tab Mupirocin (Bactroban Ointment) 0 gm TOP DAILY [facility] Last Admin: 08/24/17 10:08 Dose: Not Given Oxycodone/Acetaminophen (Percocet 5/325 Mg Tab) 1 tab PO Q4H PRN PRN Reason: pain Stop: 08/25/17 18:22 Last Admin: 08/24/17 14:00 Dose: 1 tab Saccharomyces Boulardii (Florastor) 250 mg PO BID [facility] Last Admin: 08/24/17 11:00 Dose: 250 mg Temazepam (Restoril) 30 mg PO HS PRN PRN Reason: Insomnia Last Admin: 08/24/17 00:23 Dose: 30 mg Thiamine HCl (Vitamin B1 Tab) 100 mg PO DAILY [facility] Last Admin: 08/24/17 11:00 Dose: 100 mg - Labs Labs: 08/24/17 05:10 08/24/17 05:10 PT 11.5 SECONDS (9.7-12.2) 08/23/17 07:15 INR 1.0 08/23/17 07:15 APTT 34 SECONDS (21-34) 08/23/17 07:15 - Constitutional Appears: Non-toxic, Chronically Ill - Head Exam Head Exam: NORMOCEPHALIC - Eye Exam Eye Exam: PERRL - ENT Exam ENT Exam: Mucous Membranes Dry - Neck Exam Neck Exam: absent: Lymphadenopathy - Respiratory Exam Respiratory Exam: Decreased Breath Sounds - Cardiovascular Exam Cardiovascular Exam: REGULAR RHYTHM - GI/Abdominal Exam GI & Abdominal Exam: Distended - Rectal Exam Rectal Exam: Deferred - Exam Exam: NORMAL INSPECTION Assessment and Plan (1) Foot ulcer, left Status: Acute (2) Osteomyelitis of toe of left foot Status: Acute - Assessment and Plan (Free Text) Assessment: cont iv rx and wound care
--- NOTE | 2017-08-24 18:21 | CP.PCM.PN ---
Subjective - Date & Time of Evaluation Date of Evaluation: 08/24/17 Time of Evaluation: 07:20 - Subjective Subjective: clinically same Objective - Vital Signs/Intake and Output Vital Signs (last 24 hours): Temp Pulse Resp BP Pulse Ox 97.3 F L 64 20 116/96 H 96 08/24/17 16:00 08/24/17 16:00 08/24/17 16:00 08/24/17 16:00 08/24/17 16:00 Intake and Output: 08/24/17 08/24/17 06:59 18:59 Intake Total 550 1750 Output Total 1000 500 Balance -450 1250 - Medications Medications: Current Medications Acetaminophen (Tylenol 325mg Tab) 650 mg PO Q6 PRN PRN Reason: Pain, Mild (1-3) Enoxaparin Sodium (Lovenox) 40 mg SC DAILY [facility] Last Admin: 08/24/17 11:00 Dose: 40 mg Famotidine (Pepcid) 20 mg PO DAILY [facility] Last Admin: 08/24/17 11:00 Dose: 20 mg Folic Acid (Folic Acid) 1 mg PO DAILY [facility] Last Admin: 08/24/17 11:00 Dose: 1 mg Piperacillin Sod/Tazobactam Sod (Zosyn 3.375 Gm Iv Premix) 3.375 gm in 50 mls @ 100 mls/hr IVPB Q8H [facility] Last Admin: 08/24/17 13:11 Dose: 100 mls/hr Methadone HCl (Methadose) 40 mg PO DAILY [facility] Last Admin: 08/24/17 11:00 Dose: 40 mg Methadone HCl (Methadone) 10 mg PO DAILY [facility] Multivitamins (Hexavitamin) 1 tab PO DAILY [facility] Last Admin: 08/24/17 11:00 Dose: 1 tab Mupirocin (Bactroban Ointment) 0 gm TOP DAILY [facility] Last Admin: 08/24/17 10:08 Dose: Not Given Oxycodone/Acetaminophen (Percocet 5/325 Mg Tab) 1 tab PO Q4H PRN PRN Reason: pain Stop: 08/25/17 18:22 Last Admin: 08/24/17 14:00 Dose: 1 tab Saccharomyces Boulardii (Florastor) 250 mg PO BID [facility] Last Admin: 08/24/17 17:33 Dose: 250 mg Temazepam (Restoril) 30 mg PO HS PRN PRN Reason: Insomnia Last Admin: 08/24/17 00:23 Dose: 30 mg Thiamine HCl (Vitamin B1 Tab) 100 mg PO DAILY [facility] Last Admin: 08/24/17 11:00 Dose: 100 mg - Labs Labs: 08/24/17 05:10 08/24/17 05:10 PT 11.5 SECONDS (9.7-12.2) 08/23/17 07:15 INR 1.0 08/23/17 07:15 APTT 34 SECONDS (21-34) 08/23/17 07:15 - Constitutional Appears: Well - Head Exam Head Exam: ATRAUMATIC, NORMAL INSPECTION, NORMOCEPHALIC - Eye Exam Eye Exam: EOMI, Normal appearance, PERRL Pupil Exam: NORMAL ACCOMODATION, PERRL - ENT Exam ENT Exam: Mucous Membranes Moist, Normal Exam - Neck Exam Neck Exam: Full ROM, Normal Inspection. absent: Lymphadenopathy - Respiratory Exam Respiratory Exam: Decreased Breath Sounds - Cardiovascular Exam Cardiovascular Exam: REGULAR RHYTHM, +S1, +S2 - GI/Abdominal Exam GI & Abdominal Exam: Soft, Diminished Bowel Sounds - Rectal Exam Rectal Exam: Deferred
--- NOTE | 2017-08-24 18:36 | CP.PCM.PN ---
Subjective - Date & Time of Evaluation Date of Evaluation: 08/24/17 Time of Evaluation: 18:36 Objective - Vital Signs/Intake and Output Vital Signs (last 24 hours): Temp Pulse Resp BP Pulse Ox 97.3 F L 64 20 116/96 H 96 08/24/17 16:00 08/24/17 16:00 08/24/17 16:00 08/24/17 16:00 08/24/17 16:00 Intake and Output: 08/24/17 08/24/17 06:59 18:59 Intake Total 550 1750 Output Total 1000 500 Balance -450 1250 - Medications Medications: Current Medications Acetaminophen (Tylenol 325mg Tab) 650 mg PO Q6 PRN PRN Reason: Pain, Mild (1-3) Enoxaparin Sodium (Lovenox) 40 mg SC DAILY [facility] Last Admin: 08/24/17 11:00 Dose: 40 mg Famotidine (Pepcid) 20 mg PO DAILY [facility] Last Admin: 08/24/17 11:00 Dose: 20 mg Folic Acid (Folic Acid) 1 mg PO DAILY [facility] Last Admin: 08/24/17 11:00 Dose: 1 mg Piperacillin Sod/Tazobactam Sod (Zosyn 3.375 Gm Iv Premix) 3.375 gm in 50 mls @ 100 mls/hr IVPB Q8H [facility] Last Admin: 08/24/17 13:11 Dose: 100 mls/hr Methadone HCl (Methadose) 40 mg PO DAILY [facility] Last Admin: 08/24/17 11:00 Dose: 40 mg Methadone HCl (Methadone) 10 mg PO DAILY [facility] Multivitamins (Hexavitamin) 1 tab PO DAILY [facility] Last Admin: 08/24/17 11:00 Dose: 1 tab Mupirocin (Bactroban Ointment) 0 gm TOP DAILY [facility] Last Admin: 08/24/17 10:08 Dose: Not Given Oxycodone/Acetaminophen (Percocet 5/325 Mg Tab) 1 tab PO Q4H PRN PRN Reason: pain Stop: 08/25/17 18:22 Last Admin: 08/24/17 14:00 Dose: 1 tab Saccharomyces Boulardii (Florastor) 250 mg PO BID [facility] Last Admin: 08/24/17 17:33 Dose: 250 mg Temazepam (Restoril) 30 mg PO HS PRN PRN Reason: Insomnia Last Admin: 08/24/17 00:23 Dose: 30 mg Thiamine HCl (Vitamin B1 Tab) 100 mg PO DAILY [facility] Last Admin: 08/24/17 11:00 Dose: 100 mg - Labs Labs: 08/24/17 05:10 08/24/17 05:10 PT 11.5 SECONDS (9.7-12.2) 08/23/17 07:15 INR 1.0 08/23/17 07:15 APTT 34 SECONDS (21-34) 08/23/17 07:15
--- NOTE | 2017-08-24 21:56 | OP ---
PROCEDURE DATE: 08/24/2017 PRIMARY SURGEON: Dr. Paulino Croft, DPM CERTIFIED INDOOR ENVIRONMENTALIST: Dr. Aleena Lucio, PGY2. ANESTHESIOLOGIST: Dr. Benito HUGHES. TYPE OF ANESTHESIA: MAC IV sedation with local. PREOPERATIVE DIAGNOSIS: Left foot second digit osteomyelitis. POSTOPERATIVE DIAGNOSIS: Left foot second digit osteomyelitis. PROCEDURE PERFORMED: Left foot second digit partial amputation. SPECIMENS: 1. Left foot distal second digit bone and soft tissue. 2. Left foot second digit clear margins, proximal phalanx bone. INDICATIONS: The patient is a 52-year-old male with the above-stated diagnoses. The patient has exhausted all conservative treatment options and is now is in need of surgical intervention. The patient signed the surgical consent after careful explanation of risks, benefits, complications and potential alternatives to the postsurgical procedure. No guarantees were either given or implied. All patient's questions were answered to his satisfaction. The patient has generalized understanding of the procedure about we undertaken. PREPARATION: The patient's n.p.o. status was confirmed prior to bringing the patient to the operating room. The patient was brought into the operating room and placed on the operating room table in a supine position. Once IV sedation was confirmed to have been achieved, the patient received a total of 9 mL of 1:1 mixture of 0.5% Marcaine plain to 1% lidocaine plain in a local block type fashion. Once local anesthetic was confirmed to have been achieved, the patient's left foot was then prepped and draped in the usual sterile manner and the procedure began. DESCRIPTION OF PROCEDURE: Left foot second digit partial amputation. Attention was then directed to the dorsal aspect of the patient's second digit, where distal tuft ulceration was noted. At this time, attention was directed to distal aspect of the patient's possible interphalangeal joint along the approximated base of the middle phalanx. At this time, a vertical incision was made transversely in line with its anatomical landmark using #15 blade extending down full thickness to the level of periosteum. All bleeders were cauterized as needed. At this time, a transverse capsulotomy was performed at the level of the proximal interphalangeal joint and middle phalanx, and distal aspect of toe was disarticulated and passed from the operative field to be sent for Pathology. At this time, attention was directed to the head of the proximal phalanx where articulate cartilage was found to be of normal quality, absnet signs of infective deterioration. The distal head of the proximal phalanx was resected using a sagittal saw, which was introduced to the surgical field and passed from the operative field to be sent to Pathology. Extensor digitorum longus tendon and flexor digitorum longus tendon were resected back using #15 blade. Surgical site was then assessed and was noted that excisional soft tissue margins will be adequate to provide closure. Surgical site was then flushed with copious amounts of sterile saline. Skin was reapproximated over the remaining proximal phalanx using 4-0 Prolene in a simple suture-type fashion. All excess nonviable skin margins of incision were resected to allow adequate coaptation. Left foot was then cleansed with sterile saline. The patient received a total of 10 mL of 0.5% Marcaine plain in a local block type fashion to the second ray as a postoperative pain control. Dressed site with Xeroform, 4 x 4 gauze, Marleny, Kerlix and Coban. POSTOPERATIVE CONDITION: The patient tolerated the anesthesia and procedure well and was escorted to the recovery room with vital signs stable and neurovascular status intact. The patient will be followed closely while remains admitted to the hospital. Aleena Lucio DPM Paulino Croft DPM MTDNikolas
[2017-08-25] MEDS: Oxycodone/Acetaminophen 5/325 mg Tab PO PRN ×5 (00:11→19:10)
[2017-08-25] MEDS ORDERED: Morphine 4 MG/ML VIAL IV ONE (01:00)
[2017-08-25] MEDS: Piperacill/Tazo 3.375gm in Dex 3.375 GM/50 ML BAG IVPB SCH ×3 (05:46→21:29)
[2017-08-25 07:17] LABS: BASO # 0.1 K/uL (0.0-0.2); BASO % 1.2 % (0.0-2.0); EOS # 0.3 K/uL (0.0-0.7); EOS % 4.2 % (0.0-4.0); HEMOGLOBIN 13.6 g/dL (12.0-18.0); LYMPH # 2.6 K/uL (1.0-4.3); LYMPH % 31.3 % (20.0-40.0); MEAN CELL VOLUME 90.2 fL (80.0-94.0); MEAN CORPUSCULAR HEMOGLOBIN 31.2 pg (27.0-31.0); MEAN CORPUSCULAR HGB CONC 34.6 g/dL (33.0-37.0); MEAN PLATELET VOLUME 9.2 fL (7.2-11.7); MONO # 0.7 K/uL (0.0-0.8); MONO % 8.3 % (0.0-10.0); NEUT # 4.5 K/uL (1.8-7.0); NRBC % 0.3 % (0.0-2.0); RBC 4.36 Mil/uL (4.40-5.90); RED CELL DISTRIBUTION WIDTH 14.1 % (11.5-14.5); WHITE BLOOD COUNT 8.2 K/uL (4.8-10.8)
[2017-08-25 07:50] LABS: ALB/GLOB RATIO 1.1 (1.0-2.1); ALBUMIN 3.5 g/dL (3.5-5.0); ALT/SGPT 165 U/L (21-72); AST/SGOT 76 U/L (17-59); BLOOD UREA NITROGEN 24 mg/dL (9-20); GFR AFRICAN-AMERICAN > 60; GFR NON-AFRICAN AMERICAN > 60
[2017-08-25] MEDS: Saccharomyces Boulardi 250 mg Cap PO SCH ×2 (09:50→18:53)
[2017-08-25] MEDS: Multiple Vitamins Tab PO SCH (09:52)
[2017-08-25] MEDS: Enoxaparin 40 mg Syringe SC SCH (09:52)
--- NOTE | 2017-08-25 12:35 | CP.PCM.PN ---
Subjective - Date & Time of Evaluation Date of Evaluation: 08/25/17 Time of Evaluation: 12:35 Objective - Vital Signs/Intake and Output Vital Signs (last 24 hours): Temp Pulse Resp BP Pulse Ox 97.8 F 57 L 20 110/67 98 08/25/17 08:00 08/25/17 08:00 08/25/17 08:00 08/25/17 08:00 08/25/17 08:00 Intake and Output: 08/25/17 08/25/17 06:59 18:59 Intake Total 950 Output Total 1250 Balance -300 - Medications Medications: Current Medications Acetaminophen (Tylenol 325mg Tab) 650 mg PO Q6 PRN PRN Reason: Pain, Mild (1-3) Enoxaparin Sodium (Lovenox) 40 mg SC DAILY [facility] Last Admin: 08/25/17 09:52 Dose: 40 mg Famotidine (Pepcid) 20 mg PO DAILY [facility] Last Admin: 08/25/17 09:51 Dose: 20 mg Folic Acid (Folic Acid) 1 mg PO DAILY [facility] Last Admin: 08/25/17 09:52 Dose: 1 mg Piperacillin Sod/Tazobactam Sod (Zosyn 3.375 Gm Iv Premix) 3.375 gm in 50 mls @ 100 mls/hr IVPB Q8H [facility] Last Admin: 08/25/17 05:46 Dose: 100 mls/hr Methadone HCl (Methadone) 30 mg PO DAILY [facility] Last Admin: 08/25/17 09:50 Dose: 30 mg Multivitamins (Hexavitamin) 1 tab PO DAILY [facility] Last Admin: 08/25/17 09:52 Dose: 1 tab Mupirocin (Bactroban Ointment) 0 gm TOP DAILY [facility] Last Admin: 08/25/17 09:52 Dose: Not Given Oxycodone/Acetaminophen (Percocet 5/325 Mg Tab) 1 tab PO Q4H PRN PRN Reason: pain Stop: 08/25/17 18:22 Last Admin: 08/25/17 09:51 Dose: 1 tab Saccharomyces Boulardii (Florastor) 250 mg PO BID [facility] Last Admin: 08/25/17 09:50 Dose: 250 mg Temazepam (Restoril) 30 mg PO HS PRN PRN Reason: Insomnia Last Admin: 08/24/17 00:23 Dose: 30 mg Thiamine HCl (Vitamin B1 Tab) 100 mg PO DAILY [facility] Last Admin: 08/25/17 09:52 Dose: 100 mg - Labs Labs: 08/25/17 06:37 08/25/17 06:37 PT 11.5 SECONDS (9.7-12.2) 08/23/17 07:15 INR 1.0 08/23/17 07:15 APTT 34 SECONDS (21-34) 08/23/17 07:15
--- NOTE | 2017-08-25 14:20 | CP.PCM.PN ---
<Danya Mancia - Last Filed: 08/25/17 14:18> Subjective - Date & Time of Evaluation Date of Evaluation: 08/25/17 Time of Evaluation: 14:18 - Subjective Subjective: PGY2 progress note for Dr. Newton Pt seen and examined at bedside. NO acute events overnight. Pt is complaining of continuous toe pain stating that pain medication is not helping. Pt denies having any SOB, abd pain, N/V/D/C, F/C. Pt tolerating diet and had a well formed BM. Objective - Vital Signs/Intake and Output Vital Signs (last 24 hours): Temp Pulse Resp BP Pulse Ox 97.8 F 57 L 20 110/67 98 08/25/17 08:00 08/25/17 08:00 08/25/17 08:00 08/25/17 08:00 08/25/17 08:00 Intake and Output: 08/25/17 08/25/17 06:59 18:59 Intake Total 950 Output Total 1250 Balance -300 - Medications Medications: Current Medications Acetaminophen (Tylenol 325mg Tab) 650 mg PO Q6 PRN PRN Reason: Pain, Mild (1-3) Enoxaparin Sodium (Lovenox) 40 mg SC DAILY [facility] Last Admin: 08/25/17 09:52 Dose: 40 mg Famotidine (Pepcid) 20 mg PO DAILY [facility] Last Admin: 08/25/17 09:51 Dose: 20 mg Folic Acid (Folic Acid) 1 mg PO DAILY [facility] Last Admin: 08/25/17 09:52 Dose: 1 mg Piperacillin Sod/Tazobactam Sod (Zosyn 3.375 Gm Iv Premix) 3.375 gm in 50 mls @ 100 mls/hr IVPB Q8H [facility] Last Admin: 08/25/17 13:46 Dose: 100 mls/hr Methadone HCl (Methadone) 30 mg PO DAILY [facility] Last Admin: 08/25/17 09:50 Dose: 30 mg Methadone HCl (Methadone) 20 mg PO DAILY [facility] Methadone HCl (Methadone) 10 mg PO DAILY [facility] Methadone HCl (Methadone) 5 mg PO DAILY [facility] Multivitamins (Hexavitamin) 1 tab PO DAILY [facility] Last Admin: 08/25/17 09:52 Dose: 1 tab Mupirocin (Bactroban Ointment) 0 gm TOP DAILY [facility] Last Admin: 08/25/17 09:52 Dose: Not Given Oxycodone/Acetaminophen (Percocet 5/325 Mg Tab) 1 tab PO Q4H PRN PRN Reason: pain Stop: 08/25/17 18:22 Last Admin: 08/25/17 13:46 Dose: 1 tab Saccharomyces Boulardii (Florastor) 250 mg PO BID [facility] Last Admin: 08/25/17 09:50 Dose: 250 mg Temazepam (Restoril) 30 mg PO HS PRN PRN Reason: Insomnia Last Admin: 08/24/17 00:23 Dose: 30 mg Thiamine HCl (Vitamin B1 Tab) 100 mg PO DAILY [facility] Last Admin: 08/25/17 09:52 Dose: 100 mg - Labs Labs: 08/25/17 06:37 08/25/17 06:37 PT 11.5 SECONDS (9.7-12.2) 08/23/17 07:15 INR 1.0 08/23/17 07:15 APTT 34 SECONDS (21-34) 08/23/17 07:15 - Constitutional Appears: Non-toxic, No Acute Distress - Head Exam Head Exam: ATRAUMATIC - ENT Exam ENT Exam: Mucous Membranes Moist - Respiratory Exam Respiratory Exam: Clear to Ausculation Bilateral. absent: Accessory Muscle Use , Rales, Rhonchi, Wheezes, Respiratory Distress - Cardiovascular Exam Cardiovascular Exam: REGULAR RHYTHM, +S1, +S2. absent: Gallop, Rubs, Murmur - GI/Abdominal Exam GI & Abdominal Exam: Soft, Normal Bowel Sounds. absent: Distended, Firm, Guarding, Rigid, Tenderness, Organomegaly - Extremities Exam Extremities Exam: Tenderness (in right LE ). absent: Pedal Edema - Neurological Exam Neurological Exam: Alert, Awake, Oriented x3 - Psychiatric Exam Psychiatric exam: Normal Affect, Normal Mood - Skin Skin Exam: Dry, Intact, Normal Color, Warm Assessment and Plan - Assessment and Plan (Free Text) Assessment: (1) Osteomyelitis of toe of left foot s/p amputation POD #1 Pain management with Percocet 1 tab po q4, tylenol 650 mg po q6 Continue Abx per ID recs. Currently on Zosyn. Per ID will continue Zosyn for 7 more days in rehab F/U Vanc troughs. Trough range should be between 15 and 20 On Florastor BID (2) Peripheral vascular disease EDGAR are non-diagnostic bilaterally due to arterial wall calcifications F/U Vasc Surgery recommendations (3) Opioid abuse with opioid-induced disorder Psychiatry consulted- F/U recommendations On Methadone taper. Per psych, pt will need to be tapered down on the methadone before he can be sent to rehab (4) Transaminitis Hep C Antibody is reactive Will consult GI, Dr. Joseph Pt has hx of IV drug abuse (4) Prophylactic measure Lovenox 40 SC daily Pepcid 20 mg po qd Discussed with attending. Management and planning per Dr. Newton <Amy Newton S - Last Filed: 08/25/17 22:41> Objective - Vital Signs/Intake and Output Vital Signs (last 24 hours): Temp Pulse Resp BP Pulse Ox 97.6 F 54 L 20 112/60 94 L 08/25/17 16:00 08/25/17 16:00 08/25/17 16:00 08/25/17 16:00 08/25/17 16:00 Intake and Output: 08/25/17 08/26/17 18:59 06:59 Intake Total 650 500 Output Total 500 Balance 650 0 - Medications Medications: Current Medications Acetaminophen (Tylenol 325mg Tab) 650 mg PO Q6 PRN PRN Reason: Pain, Mild (1-3) Enoxaparin Sodium (Lovenox) 40 mg SC DAILY [facility] Last Admin: 08/25/17 09:52 Dose: 40 mg Famotidine (Pepcid) 20 mg PO DAILY [facility] Last Admin: 08/25/17 09:51 Dose: 20 mg Folic Acid (Folic Acid) 1 mg PO DAILY [facility] Last Admin: 08/25/17 09:52 Dose: 1 mg Piperacillin Sod/Tazobactam Sod (Zosyn 3.375 Gm Iv Premix) 3.375 gm in 50 mls @ 100 mls/hr IVPB Q8H [facility] Last Admin: 08/25/17 21:29 Dose: 100 mls/hr Ketorolac Tromethamine (Toradol) 30 mg IVP Q6H [facility] Last Admin: 08/25/17 21:39 Dose: 30 mg Lidocaine (Lidoderm) 1 ea TD DAILY [facility] Last Admin: 08/25/17 16:08 Dose: 1 ea Methadone HCl (Methadone) 30 mg PO DAILY [facility] Last Admin: 02/09/18 09:50 Dose: 30 mg Methadone HCl (Methadone) 20 mg PO DAILY [facility] Methadone HCl (Methadone) 10 mg PO DAILY [facility] Methadone HCl (Methadone) 5 mg PO DAILY [facility] Multivitamins (Hexavitamin) 1 tab PO DAILY [facility] Last Admin: 08/25/17 09:52 Dose: 1 tab Mupirocin (Bactroban Ointment) 0 gm TOP DAILY [facility] Last Admin: 08/25/17 09:52 Dose: Not Given Oxycodone/Acetaminophen (Percocet 5/325 Mg Tab) 1 tab PO Q4H PRN PRN Reason: pain Stop: 08/28/17 18:55 Last Admin: 08/25/17 19:10 Dose: 1 tab Saccharomyces Boulardii (Florastor) 250 mg PO BID [facility] Last Admin: 08/25/17 18:53 Dose: 250 mg Temazepam (Restoril) 30 mg PO HS PRN PRN Reason: Insomnia Last Admin: 08/24/17 00:23 Dose: 30 mg Thiamine HCl (Vitamin B1 Tab) 100 mg PO DAILY [facility] Last Admin: 08/25/17 09:52 Dose: 100 mg - Labs Labs: 08/25/17 06:37 08/25/17 06:37 PT 11.5 SECONDS (9.7-12.2) 08/23/17 07:15 INR 1.0 08/23/17 07:15 APTT 34 SECONDS (21-34) 08/23/17 07:15 Attending/Attestation - Attestation I have personally seen and examined this patient.: Yes I have fully participated in the care of the patient.: Yes I have reviewed all pertinent clinical information, including history, physical exam and plan: Yes
[2017-08-25] MEDS: Lidocaine 5% Patch TD SCH (16:08)
--- NOTE | 2017-08-25 17:23 | CP.PCM.PN ---
Subjective - Date & Time of Evaluation Date of Evaluation: 08/25/17 Time of Evaluation: 07:20 - Subjective Subjective: clinically same Objective - Vital Signs/Intake and Output Vital Signs (last 24 hours): Temp Pulse Resp BP Pulse Ox 97.6 F 54 L 20 112/60 94 L 08/25/17 16:00 08/25/17 16:00 08/25/17 16:00 08/25/17 16:00 08/25/17 16:00 Intake and Output: 08/25/17 08/25/17 06:59 18:59 Intake Total 950 650 Output Total 1250 Balance -300 650 - Medications Medications: Current Medications Acetaminophen (Tylenol 325mg Tab) 650 mg PO Q6 PRN PRN Reason: Pain, Mild (1-3) Enoxaparin Sodium (Lovenox) 40 mg SC DAILY [facility] Last Admin: 08/25/17 09:52 Dose: 40 mg Famotidine (Pepcid) 20 mg PO DAILY [facility] Last Admin: 08/25/17 09:51 Dose: 20 mg Folic Acid (Folic Acid) 1 mg PO DAILY [facility] Last Admin: 08/25/17 09:52 Dose: 1 mg Piperacillin Sod/Tazobactam Sod (Zosyn 3.375 Gm Iv Premix) 3.375 gm in 50 mls @ 100 mls/hr IVPB Q8H [facility] Last Admin: 08/25/17 13:46 Dose: 100 mls/hr Ketorolac Tromethamine (Toradol) 30 mg IVP Q6 [facility] Lidocaine (Lidoderm) 1 ea TD DAILY [facility] Last Admin: 08/25/17 16:08 Dose: 1 ea Methadone HCl (Methadone) 30 mg PO DAILY [facility] Last Admin: 08/25/17 09:50 Dose: 30 mg Methadone HCl (Methadone) 20 mg PO DAILY [facility] Methadone HCl (Methadone) 10 mg PO DAILY [facility] Methadone HCl (Methadone) 5 mg PO DAILY [facility] Multivitamins (Hexavitamin) 1 tab PO DAILY [facility] Last Admin: 08/25/17 09:52 Dose: 1 tab Mupirocin (Bactroban Ointment) 0 gm TOP DAILY [facility] Last Admin: 08/25/17 09:52 Dose: Not Given Oxycodone/Acetaminophen (Percocet 5/325 Mg Tab) 1 tab PO Q4H PRN PRN Reason: pain Stop: 08/25/17 18:22 Last Admin: 08/25/17 13:46 Dose: 1 tab Saccharomyces Boulardii (Florastor) 250 mg PO BID [facility] Last Admin: 08/25/17 09:50 Dose: 250 mg Temazepam (Restoril) 30 mg PO HS PRN PRN Reason: Insomnia Last Admin: 08/24/17 00:23 Dose: 30 mg Thiamine HCl (Vitamin B1 Tab) 100 mg PO DAILY [facility] Last Admin: 08/25/17 09:52 Dose: 100 mg - Labs Labs: 08/25/17 06:37 08/25/17 06:37 PT 11.5 SECONDS (9.7-12.2) 08/23/17 07:15 INR 1.0 08/23/17 07:15 APTT 34 SECONDS (21-34) 08/23/17 07:15 - Constitutional Appears: Well - Head Exam Head Exam: ATRAUMATIC, NORMAL INSPECTION, NORMOCEPHALIC - Eye Exam Eye Exam: EOMI, Normal appearance, PERRL Pupil Exam: NORMAL ACCOMODATION, PERRL - ENT Exam ENT Exam: Mucous Membranes Moist, Normal Exam - Neck Exam Neck Exam: Full ROM, Normal Inspection. absent: Lymphadenopathy - Respiratory Exam Respiratory Exam: Decreased Breath Sounds - Cardiovascular Exam Cardiovascular Exam: REGULAR RHYTHM, +S1, +S2 - GI/Abdominal Exam GI & Abdominal Exam: Soft, Diminished Bowel Sounds - Rectal Exam Rectal Exam: Deferred Assessment and Plan - Assessment and Plan (Free Text) Plan: 1) Osteomyelitis of toe of left foot s/p amputation POD #1 Pain management with Percocet 1 tab po q4, tylenol 650 mg po q6 Continue Abx per ID recs. Currently on Zosyn. Per ID will continue Zosyn for 7 more days in rehab F/U Vanc troughs. Trough range should be between 15 and 20 On Florastor BID (2) Peripheral vascular disease EDGAR are non-diagnostic bilaterally due to arterial wall calcifications F/U Vasc Surgery recommendations (3) Opioid abuse with opioid-induced disorder Psychiatry consulted- F/U recommendations On Methadone taper. Per psych, pt will need to be tapered down on the methadone before he can be sent to rehab (4) Transaminitis Hep C Antibody is reactive Will consult GI, Dr. Joseph Pt has hx of IV drug abuse (4) Prophylactic measure Lovenox 40 SC daily Pepcid 20 mg po qd Patient is on tapering methadone Zosyn for 2 more weeks as per the ID vancomycin level Continue Florastor Patient is a hepatitis C antibody reactive workup will be done as an outpatient although will try to see if Dr. Cardenas V note can see the patient before patient is being discharged continue as ordered
[2017-08-25 17:29] LABS: HEPATITIS B SURFACE AG Negative (NEGATIVE)
[2017-08-25 17:35] LABS: HEPATITIS A IGM NEGATIVE (NEGATIVE); HEPATITIS B CORE AB NEGATIVE (NEGATIVE)
[2017-08-25 19:00] LABS: HEPATITIS C ANTIBODY REACTIVE (NEGATIVE)
--- NOTE | 2017-08-25 21:03 | CP.PCM.PN ---
Subjective - Date & Time of Evaluation Date of Evaluation: 08/25/17 Time of Evaluation: 12:00 - Subjective Subjective: Pt seen at bedside this morning 1 day s/p left 2nd digit amputation. Pt seen and states he has sharp, throbbing pain in 2nd to surgical site graded 10/10. Pain was intense enough it prevented the patient form gaining restful sleep. Upon arrival pt was in tears and demonstrated emotional distress. Pt denies any acute overnight event outside of restless due to pain. Pt denies overnight n.v.f.c.cp.sob. . Objective - Vital Signs/Intake and Output Vital Signs (last 24 hours): Temp Pulse Resp BP Pulse Ox 97.6 F 54 L 20 112/60 94 L 08/25/17 16:00 08/25/17 16:00 08/25/17 16:00 08/25/17 16:00 08/25/17 16:00 Intake and Output: 08/25/17 08/26/17 18:59 06:59 Intake Total 650 Balance 650 - Medications Medications: Current Medications Acetaminophen (Tylenol 325mg Tab) 650 mg PO Q6 PRN PRN Reason: Pain, Mild (1-3) Enoxaparin Sodium (Lovenox) 40 mg SC DAILY [facility] Last Admin: 08/25/17 09:52 Dose: 40 mg Famotidine (Pepcid) 20 mg PO DAILY [facility] Last Admin: 08/25/17 09:51 Dose: 20 mg Folic Acid (Folic Acid) 1 mg PO DAILY [facility] Last Admin: 08/25/17 09:52 Dose: 1 mg Piperacillin Sod/Tazobactam Sod (Zosyn 3.375 Gm Iv Premix) 3.375 gm in 50 mls @ 100 mls/hr IVPB Q8H [facility] Last Admin: 08/25/17 13:46 Dose: 100 mls/hr Ketorolac Tromethamine (Toradol) 30 mg IVP Q6 [facility] Stop: 08/27/17 18:01 Lidocaine (Lidoderm) 1 ea TD DAILY [facility] Last Admin: 08/25/17 16:08 Dose: 1 ea Methadone HCl (Methadone) 30 mg PO DAILY [facility] Last Admin: 08/25/17 09:50 Dose: 30 mg Methadone HCl (Methadone) 20 mg PO DAILY [facility] Methadone HCl (Methadone) 10 mg PO DAILY [facility] Methadone HCl (Methadone) 5 mg PO DAILY [facility] Multivitamins (Hexavitamin) 1 tab PO DAILY [facility] Last Admin: 08/25/17 09:52 Dose: 1 tab Mupirocin (Bactroban Ointment) 0 gm TOP DAILY [facility] Last Admin: 08/25/17 09:52 Dose: Not Given Oxycodone/Acetaminophen (Percocet 5/325 Mg Tab) 1 tab PO Q4H PRN PRN Reason: pain Stop: 08/28/17 18:55 Last Admin: 08/25/17 19:10 Dose: 1 tab Saccharomyces Boulardii (Florastor) 250 mg PO BID [facility] Last Admin: 08/25/17 18:53 Dose: 250 mg Temazepam (Restoril) 30 mg PO HS PRN PRN Reason: Insomnia Last Admin: 08/24/17 00:23 Dose: 30 mg Thiamine HCl (Vitamin B1 Tab) 100 mg PO DAILY [facility] Last Admin: 08/25/17 09:52 Dose: 100 mg - Labs Labs: 08/25/17 06:37 08/25/17 06:37 PT 11.5 SECONDS (9.7-12.2) 08/23/17 07:15 INR 1.0 08/23/17 07:15 APTT 34 SECONDS (21-34) 08/23/17 07:15 - Constitutional Appears: Well, Non-toxic - Extremities Exam Additional comments: Left lower extremity focused. DERM: Left 2nd digit amputation note noted.All sutures are intact, no active drainage. Site is warm to tough and erythematous. Extremely tender to palpation. Vasc: DP and PT 2/4 bilaterally, CFT < 3 seconds to the digits. MUSK: Moderate tenderness to palpation with palpation to the entire 2nd and mild pain to the 3rd digit. Neuro: Gross protective sensation diminished - Neurological Exam Neurological Exam: Alert, Awake, Oriented x3 - Psychiatric Exam Psychiatric exam: Depressed, Normal Affect Assessment and Plan - Assessment and Plan (Free Text) Assessment: 52 y/o male POD#1 s/p left 2nd digit partial amputation secondary to osteomyelitis. Plan: Patient examined and evaluated. Discussed plan in detail with attending Dr. Croft. Labs, charts, vitals reviewed (afebrile, absent leukocytosis) Bone pathology results-pending. Continue IV abx per ID: Zosyn (7 total days therapy s/p amputation) Cleansed surgical site with saline and dressed with telfa and DSD. Pt to remain full weightbearing as tolerated. Pain control modified. -Continue Percocet 5/325 mg -Ordered Toradol 30mg IV q6h -Ordered Lidocaine 5% TD patch, outlinged and reviewed are of application with nursing staff. Podiatry will continue to follow while inhouse.
[2017-08-26] MEDS: Oxycodone/Acetaminophen 5/325 mg Tab PO PRN (00:55)
[2017-08-26] MEDS: Piperacill/Tazo 3.375gm in Dex 3.375 GM/50 ML BAG IVPB SCH ×2 (05:25→15:27)
[2017-08-26 08:50] LABS: BASO # 0.1 K/uL (0.0-0.2); BASO % 1.1 % (0.0-2.0); EOS # 0.4 K/uL (0.0-0.7); EOS % 5.1 % (0.0-4.0); HEMOGLOBIN 14.1 g/dL (12.0-18.0); LYMPH # 2.7 K/uL (1.0-4.3); LYMPH % 31.4 % (20.0-40.0); MEAN CELL VOLUME 91.1 fL (80.0-94.0); MEAN CORPUSCULAR HEMOGLOBIN 31.2 pg (27.0-31.0); MEAN CORPUSCULAR HGB CONC 34.2 g/dL (33.0-37.0); MEAN PLATELET VOLUME 9.2 fL (7.2-11.7); MONO # 0.8 K/uL (0.0-0.8); MONO % 9.4 % (0.0-10.0); NEUT # 4.5 K/uL (1.8-7.0); NRBC % 0.1 % (0.0-2.0); RBC 4.52 Mil/uL (4.40-5.90); RED CELL DISTRIBUTION WIDTH 14.3 % (11.5-14.5); WHITE BLOOD COUNT 8.6 K/uL (4.8-10.8)
[2017-08-26 08:57] LABS: ALB/GLOB RATIO 1.1 (1.0-2.1); ALBUMIN 3.4 g/dL (3.5-5.0); ALT/SGPT 157 U/L (21-72); AST/SGOT 78 U/L (17-59); BLOOD UREA NITROGEN 28 mg/dL (9-20); CALCIUM 8.7 mg/dl (8.6-10.4); GFR AFRICAN-AMERICAN > 60; GFR NON-AFRICAN AMERICAN > 60
[2017-08-26] MEDS: Saccharomyces Boulardi 250 mg Cap PO SCH ×2 (09:13→17:38)
[2017-08-26] MEDS: Enoxaparin 40 mg Syringe SC SCH (09:13)
[2017-08-26] MEDS: Multiple Vitamins Tab PO SCH (09:13)
[2017-08-26] MEDS: Lidocaine 5% Patch TD SCH (09:21)
[2017-08-26] MEDS ORDERED: Lidocaine 5% Patch TD SCH (10:00)
--- NOTE | 2017-08-26 11:22 | CP.PCM.PN ---
Subjective - Date & Time of Evaluation Date of Evaluation: 08/26/17 Time of Evaluation: 11:22 - Subjective Subjective: 52 y/o male seen at bedside this morning with attending Dr. Croft 2 days s/p left 2nd digit amputation. Pt says he is still having a lot of pain in the left foot but it is well controlled at this time. Pt says it is still very tender if the foot touches the bed or anything else. Denies F/C/N/V/CP/SOB. States dressing has remained C/D/I Objective - Vital Signs/Intake and Output Vital Signs (last 24 hours): Temp Pulse Resp BP Pulse Ox 98 F 60 20 121/64 96 08/25/17 23:51 08/25/17 23:51 08/25/17 23:51 08/25/17 23:51 08/25/17 23:51 Intake and Output: 08/26/17 08/26/17 06:59 18:59 Intake Total 970 Output Total 500 Balance 470 - Medications Medications: Current Medications Acetaminophen (Tylenol 325mg Tab) 650 mg PO Q6 PRN PRN Reason: Pain, Mild (1-3) Enoxaparin Sodium (Lovenox) 40 mg SC DAILY [facility] Last Admin: 08/26/17 09:13 Dose: 40 mg Famotidine (Pepcid) 20 mg PO DAILY [facility] Last Admin: 08/26/17 09:13 Dose: 20 mg Folic Acid (Folic Acid) 1 mg PO DAILY [facility] Last Admin: 08/26/17 09:13 Dose: 1 mg Piperacillin Sod/Tazobactam Sod (Zosyn 3.375 Gm Iv Premix) 3.375 gm in 50 mls @ 100 mls/hr IVPB Q8H [facility] Last Admin: 08/26/17 05:25 Dose: 100 mls/hr Ketorolac Tromethamine (Toradol) 30 mg IVP Q6H [facility] Last Admin: 08/26/17 08:07 Dose: 30 mg Lidocaine (Lidoderm) 1 ea TD DAILY [facility] Last Admin: 08/26/17 09:21 Dose: 1 ea Methadone HCl (Methadone) 30 mg PO DAILY [facility] Last Admin: 08/26/17 09:20 Dose: 30 mg Methadone HCl (Methadone) 20 mg PO DAILY [facility] Last Admin: 08/26/17 09:20 Dose: 20 mg Methadone HCl (Methadone) 10 mg PO DAILY [facility] Methadone HCl (Methadone) 5 mg PO DAILY [facility] Multivitamins (Hexavitamin) 1 tab PO DAILY [facility] Last Admin: 08/26/17 09:13 Dose: 1 tab Mupirocin (Bactroban Ointment) 0 gm TOP DAILY [facility] Last Admin: 08/26/17 09:15 Dose: Not Given Oxycodone/Acetaminophen (Percocet 5/325 Mg Tab) 1 tab PO Q4H PRN PRN Reason: pain Stop: 08/28/17 18:55 Last Admin: 08/26/17 00:55 Dose: 1 tab Saccharomyces Boulardii (Florastor) 250 mg PO BID [facility] Last Admin: 08/26/17 09:13 Dose: 250 mg Temazepam (Restoril) 30 mg PO HS PRN PRN Reason: Insomnia Last Admin: 08/24/17 00:23 Dose: 30 mg Thiamine HCl (Vitamin B1 Tab) 100 mg PO DAILY [facility] Last Admin: 08/26/17 09:13 Dose: 100 mg - Labs Labs: 08/26/17 08:13 08/26/17 08:13 PT 11.5 SECONDS (9.7-12.2) 08/23/17 07:15 INR 1.0 08/23/17 07:15 APTT 34 SECONDS (21-34) 08/23/17 07:15 - Constitutional Appears: Well, Non-toxic, No Acute Distress - Extremities Exam Additional comments: Left lower extremity focused exam: DERM: Left 2nd digit amputation note noted.A ll sutures are intact, no active drainage. No signs of dehiscence. Skin edges are well-coapted. Site is warm to touch and mildly erythematous. Vasc: DP and PT 2/4 bilaterally, CFT < 3 seconds to the digits. MUSK: Moderate tenderness to palpation with palpation to the entire 2nd digit at surgical site and mild pain to the 3rd digit Neuro: Gross protective sensation diminished - Neurological Exam Neurological Exam: Alert, Awake, Oriented x3 - Psychiatric Exam Psychiatric exam: Normal Affect, Normal Mood Assessment and Plan - Assessment and Plan (Free Text) Assessment: 52 y/o male 2 days s/p left 2nd digit partial amputation secondary to osteomyelitis Plan: Patient examined and evaluated with attending Dr. Croft Labs, charts, vitals reviewed (afebrile, absent leukocytosis) OR bone pathology results pending Continue IV abx per ID: Zosyn (7 total days therapy s/p amputation) Cleansed surgical site with saline and dressed with bactroban, DSD Pt to remain full weightbearing as tolerated Continue current pain regimen as ordered Pt is stable from podiatry standpoint Podiatry will continue to follow while in house
--- NOTE | 2017-08-26 16:20 | CP.PCM.PN ---
Subjective - Date & Time of Evaluation Date of Evaluation: 08/26/17 Time of Evaluation: 07:00 - Subjective Subjective: clinically same Objective - Vital Signs/Intake and Output Vital Signs (last 24 hours): Temp Pulse Resp BP Pulse Ox 98 F 60 20 121/64 96 08/25/17 23:51 08/25/17 23:51 08/25/17 23:51 08/25/17 23:51 08/25/17 23:51 Intake and Output: 08/26/17 08/26/17 06:59 18:59 Intake Total 970 Output Total 500 Balance 470 - Medications Medications: Current Medications Acetaminophen (Tylenol 325mg Tab) 650 mg PO Q6 PRN PRN Reason: Pain, Mild (1-3) Enoxaparin Sodium (Lovenox) 40 mg SC DAILY [facility] Last Admin: 08/26/17 09:13 Dose: 40 mg Famotidine (Pepcid) 20 mg PO DAILY [facility] Last Admin: 08/26/17 09:13 Dose: 20 mg Folic Acid (Folic Acid) 1 mg PO DAILY [facility] Last Admin: 08/26/17 09:13 Dose: 1 mg Piperacillin Sod/Tazobactam (Sod 3.375 gm/ Sodium Chloride) 100 mls @ 200 mls/ hr IVPB Q8H [facility] Ketorolac Tromethamine (Toradol) 30 mg IVP Q6H [facility] Last Admin: 08/26/17 15:26 Dose: 30 mg Lidocaine (Lidoderm) 1 ea TD DAILY [facility] Last Admin: 08/26/17 09:21 Dose: 1 ea Methadone HCl (Methadone) 30 mg PO DAILY [facility] Last Admin: 08/26/17 09:20 Dose: 30 mg Methadone HCl (Methadone) 20 mg PO DAILY [facility] Last Admin: 08/26/17 09:20 Dose: 20 mg Methadone HCl (Methadone) 10 mg PO DAILY [facility] Methadone HCl (Methadone) 5 mg PO DAILY [facility] Multivitamins (Hexavitamin) 1 tab PO DAILY [facility] Last Admin: 08/26/17 09:13 Dose: 1 tab Mupirocin (Bactroban Ointment) 0 gm TOP DAILY [facility] Last Admin: 08/26/17 09:15 Dose: Not Given Oxycodone/Acetaminophen (Percocet 5/325 Mg Tab) 1 tab PO Q4H PRN PRN Reason: pain Stop: 08/28/17 18:55 Last Admin: 08/26/17 00:55 Dose: 1 tab Saccharomyces Boulardii (Florastor) 250 mg PO BID [facility] Last Admin: 08/26/17 09:13 Dose: 250 mg Temazepam (Restoril) 30 mg PO HS PRN PRN Reason: Insomnia Last Admin: 08/24/17 00:23 Dose: 30 mg Thiamine HCl (Vitamin B1 Tab) 100 mg PO DAILY [facility] Last Admin: 08/26/17 09:13 Dose: 100 mg - Labs Labs: 08/26/17 08:13 08/26/17 08:13 PT 11.5 SECONDS (9.7-12.2) 08/23/17 07:15 INR 1.0 08/23/17 07:15 APTT 34 SECONDS (21-34) 08/23/17 07:15 - Constitutional Appears: Well - Head Exam Head Exam: ATRAUMATIC, NORMAL INSPECTION, NORMOCEPHALIC - Eye Exam Eye Exam: EOMI, Normal appearance, PERRL Pupil Exam: NORMAL ACCOMODATION, PERRL - ENT Exam ENT Exam: Mucous Membranes Moist, Normal Exam - Neck Exam Neck Exam: Full ROM, Normal Inspection. absent: Lymphadenopathy - Respiratory Exam Respiratory Exam: Decreased Breath Sounds - Cardiovascular Exam Cardiovascular Exam: REGULAR RHYTHM, +S1, +S2 - GI/Abdominal Exam GI & Abdominal Exam: Soft, Diminished Bowel Sounds - Rectal Exam Rectal Exam: Deferred Assessment and Plan (1) Foot ulcer, left Status: Acute (2) Osteomyelitis of toe of left foot Status: Acute (3) Prophylactic measure Status: Acute (4) Peripheral vascular disease Status: Chronic (5) Drug abuse Status: Acute (6) Opioid abuse with opioid-induced disorder Status: Chronic - Assessment and Plan (Free Text) Plan: iv antibiotic Continue Percocet Patient is on tapering methadone Possible discharge to the rehab tomorrow if okayed by psych doctor continue IV antibiotic at the rehab continue ID consultation Pulmonary consultation Other consultation as ordered
--- NOTE | 2017-08-26 16:41 | CP.PCM.CON ---
<Danya Barrera - Last Filed: 08/26/17 16:42> History of Present Illness - History of Present Illness History of Present Illness: GI Consult PGY4 Note 52 y.o male with pmhx of DM, endocarditis and drug use presented to ER for toe pain. Pt was found to have osteomyelitis and underwent amputation of toe. GI was consulted for elevated LFTs and positive Hep C. Pt denies any prior diagnosis of Hep C, no hx of HE, ascites, HE, and no prior treatment of infection. Pt was seen at bedside s/p amputation of toe with no GI complaints. No prior EGD or colonoscopy. ROS: A 12pt ROS was negative PMH: As stated in HPI PSH: bilateral hip replacement and left finger surgery SH: 1ppd 40 years, current heroine user, denies EtOh use FH: mother- DM, father- heart disease, liver and lung cancer Past Patient History - Past Medical History & Family History Past Medical History?: Yes - Past Social History Smoking Status: Heavy Smoker > 10 Cigarettes Daily - CARDIAC Hx Hypertension: No - PULMONARY Hx Tuberculosis: No - NEUROLOGICAL Hx Seizures: No - HEMATOLOGICAL/ONCOLOGICAL Hx Human Immunodeficiency Virus (HIV): No - MUSCULOSKELETAL/RHEUMATOLOGICAL Hx Falls: No Other/Comment: per pt he has a bone degeration disorder unable to name it - GENITOURINARY/GYNECOLOGICAL Hx Sexually Transmitted Disorders: No - PSYCHIATRIC Hx Substance Use: Yes - SURGICAL HISTORY Hx Musculoskeletal Surgery: Yes (2 hip replacemnts 2009 2012) - ANESTHESIA Hx Anesthesia: Yes Hx Anesthesia Reactions: No Hx Malignant Hyperthermia: No Meds Allergies/Adverse Reactions: Allergies Allergy/AdvReac Type Severity Reaction Status Date / Time No Known Allergies Allergy Verified 08/18/17 16:24 - Medications Medications: Current Medications Acetaminophen (Tylenol 325mg Tab) 650 mg PO Q6 PRN PRN Reason: Pain, Mild (1-3) Enoxaparin Sodium (Lovenox) 40 mg SC DAILY [facility] Last Admin: 08/26/17 09:13 Dose: 40 mg Famotidine (Pepcid) 20 mg PO DAILY [facility] Last Admin: 08/26/17 09:13 Dose: 20 mg Folic Acid (Folic Acid) 1 mg PO DAILY [facility] Last Admin: 08/26/17 09:13 Dose: 1 mg Piperacillin Sod/Tazobactam (Sod 3.375 gm/ Sodium Chloride) 100 mls @ 200 mls/ hr IVPB Q8H [facility] Ketorolac Tromethamine (Toradol) 30 mg IVP Q6H [facility] Last Admin: 08/26/17 15:26 Dose: 30 mg Lidocaine (Lidoderm) 1 ea TD DAILY [facility] Last Admin: 08/26/17 09:21 Dose: 1 ea Methadone HCl (Methadone) 30 mg PO DAILY [facility] Last Admin: 08/26/17 09:20 Dose: 30 mg Methadone HCl (Methadone) 20 mg PO DAILY [facility] Last Admin: 08/26/17 09:20 Dose: 20 mg Methadone HCl (Methadone) 10 mg PO DAILY [facility] Methadone HCl (Methadone) 5 mg PO DAILY [facility] Multivitamins (Hexavitamin) 1 tab PO DAILY [facility] Last Admin: 08/26/17 09:13 Dose: 1 tab Mupirocin (Bactroban Ointment) 0 gm TOP DAILY [facility] Last Admin: 08/26/17 09:15 Dose: Not Given Oxycodone/Acetaminophen (Percocet 5/325 Mg Tab) 1 tab PO Q4H PRN PRN Reason: pain Stop: 08/28/17 18:55 Last Admin: 08/26/17 00:55 Dose: 1 tab Saccharomyces Boulardii (Florastor) 250 mg PO BID [facility] Last Admin: 08/26/17 09:13 Dose: 250 mg Temazepam (Restoril) 30 mg PO HS PRN PRN Reason: Insomnia Last Admin: 08/24/17 00:23 Dose: 30 mg Thiamine HCl (Vitamin B1 Tab) 100 mg PO DAILY [facility] Last Admin: 08/26/17 09:13 Dose: 100 mg Physical Exam - Constitutional Appears: Non-toxic, No Acute Distress - Head Exam Head Exam: ATRAUMATIC, NORMAL INSPECTION, NORMOCEPHALIC - Eye Exam Eye Exam: EOMI, Normal appearance, PERRL Pupil Exam: NORMAL ACCOMODATION - ENT Exam ENT Exam: Mucous Membranes Moist, Normal Exam - Neck Exam Neck exam: Positive for: Normal Inspection - Respiratory Exam Respiratory Exam: Clear to Auscultation Bilateral, NORMAL BREATHING PATTERN - Cardiovascular Exam Cardiovascular Exam: REGULAR RHYTHM - GI/Abdominal Exam GI & Abdominal Exam: Normal Bowel Sounds, Soft - Extremities Exam Extremities exam: Positive for: normal inspection - Neurological Exam Neurological exam: Alert, Oriented x3 - Psychiatric Exam Psychiatric exam: Normal Affect, Normal Mood - Skin Skin Exam: Dry, Intact, Normal Color, Warm Results - Vital Signs Recent Vital Signs: Last Vital Signs Temp 98 F 08/25/17 23:51 Pulse 60 08/25/17 23:51 Resp 20 08/25/17 23:51 BP 121/64 08/25/17 23:51 Pulse Ox 96 08/25/17 23:51 - Labs Result Diagrams: 08/26/17 08:13 08/26/17 08:13 Labs: Laboratory Results - last 24 hr 08/25/17 08/26/17 08/26/17 15:01 08:13 08:13 WBC 8.6 RBC 4.52 Hgb 14.1 Hct 41.2 MCV 91.1 MCH 31.2 H MCHC 34.2 RDW 14.3 Plt Count 208 MPV 9.2 Neut % (Auto) 53.0 Lymph % (Auto) 31.4 [place] % (Auto) 9.4 Eos % (Auto) 5.1 H Baso % (Auto) 1.1 Neut # (Auto) 4.5 Lymph # (Auto) 2.7 [place] # (Auto) 0.8 Eos # (Auto) 0.4 Baso # (Auto) 0.1 Sodium 136 Potassium 4.5 Chloride 102 Carbon Dioxide 27 Anion Gap 13 BUN 28 H Creatinine 0.9 Est GFR ( Amer) > 60 Est GFR (Non-Af Amer) > 60 Random Glucose 103 Calcium 8.7 Total Bilirubin 0.3 AST 78 H ALT 157 H Alkaline Phosphatase 99 Total Protein 6.6 Albumin 3.4 L Globulin 3.2 Albumin/Globulin Ratio 1.1 Hepatitis A IgM Ab Negative Hep Bs Antigen Negative Hep B Core IgM Ab Negative Hepatitis C Antibody Reactive Assessment & Plan - Assessment and Plan (Free Text) Assessment: This is 52yM presenting with toe pain. 1. Hep C positive abx 2. Elevated LFTs 3. Osteomyelitis of toe s/p amputation 4. Hx of Drug abuse Plan: -Continue supportive care for pain control and anti-emetics -Discussed with pt diagnosis of Hep C -Pt will need outpt followup and workup for treatment plan -Will sign off please call with any questions or concerns <Stephanie Sofia MD - Last Filed: 08/26/17 17:01> Meds - Medications Medications: Current Medications Acetaminophen (Tylenol 325mg Tab) 650 mg PO Q6 PRN PRN Reason: Pain, Mild (1-3) Enoxaparin Sodium (Lovenox) 40 mg SC DAILY [facility] Last Admin: 08/26/17 09:13 Dose: 40 mg Famotidine (Pepcid) 20 mg PO DAILY [facility] Last Admin: 08/26/17 09:13 Dose: 20 mg Folic Acid (Folic Acid) 1 mg PO DAILY [facility] Last Admin: 08/26/17 09:13 Dose: 1 mg Piperacillin Sod/Tazobactam (Sod 3.375 gm/ Sodium Chloride) 100 mls @ 200 mls/ hr IVPB Q8H [facility] Ketorolac Tromethamine (Toradol) 30 mg IVP Q6H [facility] Last Admin: 08/26/17 15:26 Dose: 30 mg Lidocaine (Lidoderm) 1 ea TD DAILY [facility] Last Admin: 08/26/17 09:21 Dose: 1 ea Methadone HCl (Methadone) 30 mg PO DAILY [facility] Last Admin: 08/26/17 09:20 Dose: 30 mg Methadone HCl (Methadone) 20 mg PO DAILY [facility] Last Admin: 08/26/17 09:20 Dose: 20 mg Methadone HCl (Methadone) 10 mg PO DAILY [facility] Methadone HCl (Methadone) 5 mg PO DAILY [facility] Multivitamins (Hexavitamin) 1 tab PO DAILY [facility] Last Admin: 08/26/17 09:13 Dose: 1 tab Mupirocin (Bactroban Ointment) 0 gm TOP DAILY [facility] Last Admin: 08/26/17 09:15 Dose: Not Given Oxycodone/Acetaminophen (Percocet 5/325 Mg Tab) 1 tab PO Q4H PRN PRN Reason: pain Stop: 08/28/17 18:55 Last Admin: 08/26/17 00:55 Dose: 1 tab Saccharomyces Boulardii (Florastor) 250 mg PO BID [facility] Last Admin: 08/26/17 09:13 Dose: 250 mg Temazepam (Restoril) 30 mg PO HS PRN PRN Reason: Insomnia Last Admin: 08/24/17 00:23 Dose: 30 mg Thiamine HCl (Vitamin B1 Tab) 100 mg PO DAILY [facility] Last Admin: 08/26/17 09:13 Dose: 100 mg Results - Vital Signs Recent Vital Signs: Last Vital Signs Temp 98 F 08/25/17 23:51 Pulse 60 08/25/17 23:51 Resp 20 08/25/17 23:51 BP 121/64 08/25/17 23:51 Pulse Ox 96 08/25/17 23:51 - Labs Result Diagrams: 08/26/17 08:13 08/26/17 08:13 Labs: Laboratory Results - last 24 hr 08/25/17 08/26/17 08/26/17 15:01 08:13 08:13 WBC 8.6 RBC 4.52 Hgb 14.1 Hct 41.2 MCV 91.1 MCH 31.2 H MCHC 34.2 RDW 14.3 Plt Count 208 MPV 9.2 Neut % (Auto) 53.0 Lymph % (Auto) 31.4 [place] % (Auto) 9.4 Eos % (Auto) 5.1 H Baso % (Auto) 1.1 Neut # (Auto) 4.5 Lymph # (Auto) 2.7 [place] # (Auto) 0.8 Eos # (Auto) 0.4 Baso # (Auto) 0.1 Sodium 136 Potassium 4.5 Chloride 102 Carbon Dioxide 27 Anion Gap 13 BUN 28 H Creatinine 0.9 Est GFR ( Amer) > 60 Est GFR (Non-Af Amer) > 60 Random Glucose 103 Calcium 8.7 Total Bilirubin 0.3 AST 78 H ALT 157 H Alkaline Phosphatase 99 Total Protein 6.6 Albumin 3.4 L Globulin 3.2 Albumin/Globulin Ratio 1.1 Hepatitis A IgM Ab Negative Hep Bs Antigen Negative Hep B Core IgM Ab Negative Hepatitis C Antibody Reactive Attending/Attestation - Attestation I have personally seen and examined this patient.: Yes I have fully participated in the care of the patient.: Yes I have reviewed all pertinent clinical information: Yes Notes (Text): 08/26/17 16:59 Patient seen at bedside. This is a 52 year old homeless M presenting with toe pain found to have osteomyelitis s/p toe amputation. Gi consulted for HCV ab positive. No other HCV labs available. LFT normal. No s/s of portal HTN. Past history of drug abuse. Gave information to patient regarding follow up as outpatient to get treated. He is being sent to [facility] for 6 weeks. -Pt will need outpt followup and workup for treatment plan -Will sign off please call with any questions or concerns
--- NOTE | 2017-08-26 17:44 | CP.PCM.PN ---
Subjective - Date & Time of Evaluation Date of Evaluation: 08/26/17 Time of Evaluation: 17:43 Objective - Vital Signs/Intake and Output Vital Signs (last 24 hours): Temp Pulse Resp BP Pulse Ox 97.9 F 62 18 110/68 97 08/26/17 08:00 08/26/17 08:00 08/26/17 08:00 08/26/17 08:00 08/26/17 08:00 Intake and Output: 08/26/17 08/26/17 06:59 18:59 Intake Total 970 600 Output Total 500 Balance 470 600 - Medications Medications: Current Medications Acetaminophen (Tylenol 325mg Tab) 650 mg PO Q6 PRN PRN Reason: Pain, Mild (1-3) Enoxaparin Sodium (Lovenox) 40 mg SC DAILY [facility] Last Admin: 08/26/17 09:13 Dose: 40 mg Famotidine (Pepcid) 20 mg PO DAILY [facility] Last Admin: 08/26/17 09:13 Dose: 20 mg Folic Acid (Folic Acid) 1 mg PO DAILY [facility] Last Admin: 08/26/17 09:13 Dose: 1 mg Piperacillin Sod/Tazobactam (Sod 3.375 gm/ Sodium Chloride) 100 mls @ 200 mls/ hr IVPB Q8H [facility] Ketorolac Tromethamine (Toradol) 30 mg IVP Q6H [facility] Last Admin: 08/26/17 15:26 Dose: 30 mg Lidocaine (Lidoderm) 1 ea TD DAILY [facility] Last Admin: 08/26/17 09:21 Dose: 1 ea Methadone HCl (Methadone) 30 mg PO DAILY [facility] Last Admin: 08/26/17 09:20 Dose: 30 mg Methadone HCl (Methadone) 20 mg PO DAILY [facility] Last Admin: 08/26/17 09:20 Dose: 20 mg Methadone HCl (Methadone) 10 mg PO DAILY [facility] Methadone HCl (Methadone) 5 mg PO DAILY [facility] Multivitamins (Hexavitamin) 1 tab PO DAILY [facility] Last Admin: 08/26/17 09:13 Dose: 1 tab Mupirocin (Bactroban Ointment) 0 gm TOP DAILY [facility] Last Admin: 08/26/17 09:15 Dose: Not Given Oxycodone/Acetaminophen (Percocet 5/325 Mg Tab) 1 tab PO Q4H PRN PRN Reason: pain Stop: 08/28/17 18:55 Last Admin: 08/26/17 00:55 Dose: 1 tab Saccharomyces Boulardii (Florastor) 250 mg PO BID [facility] Last Admin: 08/26/17 17:38 Dose: 250 mg Temazepam (Restoril) 30 mg PO HS PRN PRN Reason: Insomnia Last Admin: 08/24/17 00:23 Dose: 30 mg Thiamine HCl (Vitamin B1 Tab) 100 mg PO DAILY [facility] Last Admin: 08/26/17 09:13 Dose: 100 mg - Labs Labs: 08/26/17 08:13 08/26/17 08:13 PT 11.5 SECONDS (9.7-12.2) 08/23/17 07:15 INR 1.0 08/23/17 07:15 APTT 34 SECONDS (21-34) 08/23/17 07:15
--- NOTE | 2017-08-26 18:43 | PN ---
DATE: 08/26/2017 SUBJECTIVE: The patient is seen, the patient is doing well with the taper of the methadone. He is made aware that he might go for a subacute rehab on Monday. The patient is not complaining of pain, no withdrawal symptoms of opiates noted. VITAL SIGNS: Temperature is 98, pulse rate 60, blood pressure 121/64, respirations 20, and oxygen saturation 96%. REVIEW OF SYSTEMS: GENERAL: The patient is alert and oriented x3, seen in his room resting. SKIN: No diaphoresis. HEENT: No headache. No dizziness. NECK: Supple. RESPIRATORY: No dyspnea. CARDIOVASCULAR: No chest pain. GASTROINTESTINAL: Feeding. EXTREMITIES: Complaining of mild pain in the surgical site. The patient is status post surgery in his left foot. MUSCULOSKELETAL: Improving. The patient, however, is ambulating with a wheelchair. The patient awaiting completion of detox of methadone prior to transfer to subacute rehab, possibly to [facility]. NEUROLOGIC: Alert and oriented x3. MENTAL STATUS EXAMINATION: Very tall middle-aged male who looks stated age, oriented x3. Mood is calm. Affect is reactive. Speech is spontaneous. Thought process, coherent. Thought content, No psychosis. No suicidal or homicidal ideation. Attention and memory seems to be fair. Insight and judgment fair. Impulse control is fair. IMPRESSION: History of polysubstance dependence, cocaine, heroin, opiate withdrawal, opiate dependence, on methadone detox, osteomyelitis of the left second toe, status post surgery. PLAN/RECOMMENDATIONS: The patient is seen, medications reviewed. Continue the methadone taper as ordered. Daily antibiotics. The patient will be transferred to subacute rehab once off methadone. The patient may continue taking his pain meds as ordered as well as the Restoril p.r.n. which he has been taking at night p.r.n. Olivier Abbott MD MTDD
[2017-08-26] MEDS: Piperacillin/Tazobact 3.375 GM in Sodium Chloride 0.9% 100 ML IVPB SCH (21:38)
[2017-08-27] MEDS: Piperacillin/Tazobact 3.375 GM in Sodium Chloride 0.9% 100 ML IVPB SCH ×3 (04:50→20:46)
[2017-08-27] MEDS: Saccharomyces Boulardi 250 mg Cap PO SCH ×2 (09:42→18:06)
[2017-08-27] MEDS: Enoxaparin 40 mg Syringe SC SCH (09:43)
[2017-08-27] MEDS: Lidocaine 5% Patch TD SCH (10:28)
[2017-08-27] MEDS: Multiple Vitamins Tab PO SCH (10:37)
--- NOTE | 2017-08-27 12:36 | CP.PCM.PN ---
Subjective - Date & Time of Evaluation Date of Evaluation: 08/27/17 Time of Evaluation: 12:33 - Subjective Subjective: 52 y/o male seen at bedside this morning 3 days s/p left 2nd digit amputation. Pt says the pain is getting better every day. Pt says his dressing has remained clean, dry and intact. Denies F/C/N/V/CP/SOB. Objective - Vital Signs/Intake and Output Vital Signs (last 24 hours): Temp Pulse Resp BP Pulse Ox 98.1 F 55 L 20 118/70 97 08/27/17 00:00 08/27/17 00:00 08/27/17 00:00 08/27/17 00:00 08/27/17 00:00 Intake and Output: 08/27/17 08/27/17 06:59 18:59 Intake Total 500 300 Output Total 500 300 Balance 0 0 - Medications Medications: Current Medications Acetaminophen (Tylenol 325mg Tab) 650 mg PO Q6 PRN PRN Reason: Pain, Mild (1-3) Enoxaparin Sodium (Lovenox) 40 mg SC DAILY [facility] Last Admin: 08/27/17 09:43 Dose: 40 mg Famotidine (Pepcid) 20 mg PO DAILY [facility] Last Admin: 08/27/17 09:43 Dose: 20 mg Folic Acid (Folic Acid) 1 mg PO DAILY [facility] Last Admin: 08/27/17 09:43 Dose: 1 mg Piperacillin Sod/Tazobactam (Sod 3.375 gm/ Sodium Chloride) 100 mls @ 200 mls/ hr IVPB Q8H [facility] Last Admin: 08/27/17 04:50 Dose: 200 mls/hr Ketorolac Tromethamine (Toradol) 30 mg IVP Q6H [facility] Last Admin: 08/27/17 08:17 Dose: 30 mg Lidocaine (Lidoderm) 1 ea TD DAILY [facility] Last Admin: 08/27/17 10:28 Dose: 1 ea Methadone HCl (Methadone) 30 mg PO DAILY [facility] Last Admin: 08/27/17 09:41 Dose: 30 mg Methadone HCl (Methadone) 20 mg PO DAILY [facility] Last Admin: 08/27/17 09:41 Dose: 20 mg Methadone HCl (Methadone) 10 mg PO DAILY [facility] Last Admin: 08/27/17 09:41 Dose: 10 mg Methadone HCl (Methadone) 5 mg PO DAILY [facility] Multivitamins (Hexavitamin) 1 tab PO DAILY [facility] Last Admin: 08/27/17 10:37 Dose: 1 tab Mupirocin (Bactroban Ointment) 0 gm TOP DAILY [facility] Last Admin: 08/27/17 10:26 Dose: Not Given Oxycodone/Acetaminophen (Percocet 5/325 Mg Tab) 1 tab PO Q4H PRN PRN Reason: pain Stop: 08/28/17 18:55 Last Admin: 08/26/17 00:55 Dose: 1 tab Saccharomyces Boulardii (Florastor) 250 mg PO BID [facility] Last Admin: 08/27/17 09:42 Dose: 250 mg Temazepam (Restoril) 30 mg PO HS PRN PRN Reason: Insomnia Last Admin: 08/24/17 00:23 Dose: 30 mg Thiamine HCl (Vitamin B1 Tab) 100 mg PO DAILY [facility] Last Admin: 08/27/17 09:42 Dose: 100 mg - Labs Labs: 08/26/17 08:13 08/26/17 08:13 PT 11.5 SECONDS (9.7-12.2) 08/23/17 07:15 INR 1.0 08/23/17 07:15 APTT 34 SECONDS (21-34) 08/23/17 07:15 - Constitutional Appears: Well, Non-toxic, No Acute Distress - Extremities Exam Additional comments: Left lower extremity focused exam: Derm: Left 2nd digit amputation note noted. All sutures are intact, no active drainage. No signs of dehiscence. Skin edges are well-coapted. Site is warm to touch and mildly erythematous. Vasc: DP and PT 2/4 bilaterally, CFT < 3 seconds to the digits. Ortho: Moderate tenderness to palpation with palpation to the entire 2nd digit at surgical site and mild pain to the 3rd digit Neuro: Gross protective sensation diminished - Neurological Exam Neurological Exam: Alert, Awake, Oriented x3 - Psychiatric Exam Psychiatric exam: Normal Affect, Normal Mood Assessment and Plan - Assessment and Plan (Free Text) Assessment: 52 y/o male 3 days s/p left 2nd digit partial amputation secondary to osteomyelitis Plan: Patient examined and evaluated Discussed with attending Dr. Croft Labs, charts, vitals reviewed (afebrile, absent leukocytosis) OR bone pathology results pending Continue IV abx per ID: Zosyn (7 total days therapy s/p amputation) Cleansed surgical site with saline and dressed left foot with bactroban, DSD Pt to remain full weightbearing as tolerated Continue current pain regimen as ordered Pt is stable from podiatry standpoint Podiatry will continue to follow while in house
[2017-08-27] MEDS: Oxycodone/Acetaminophen 5/325 mg Tab PO PRN ×2 (12:56→19:11)
--- NOTE | 2017-08-27 14:21 | CP.PCM.PN ---
Subjective - Date & Time of Evaluation Date of Evaluation: 08/27/17 Time of Evaluation: 07:00 - Subjective Subjective: clinically same Objective - Vital Signs/Intake and Output Vital Signs (last 24 hours): Temp Pulse Resp BP Pulse Ox 98.1 F 55 L 20 118/70 97 08/27/17 00:00 08/27/17 00:00 08/27/17 00:00 08/27/17 00:00 08/27/17 00:00 Intake and Output: 08/27/17 08/27/17 06:59 18:59 Intake Total 500 300 Output Total 500 300 Balance 0 0 - Medications Medications: Current Medications Acetaminophen (Tylenol 325mg Tab) 650 mg PO Q6 PRN PRN Reason: Pain, Mild (1-3) Enoxaparin Sodium (Lovenox) 40 mg SC DAILY [facility] Last Admin: 08/27/17 09:43 Dose: 40 mg Famotidine (Pepcid) 20 mg PO DAILY [facility] Last Admin: 08/27/17 09:43 Dose: 20 mg Folic Acid (Folic Acid) 1 mg PO DAILY [facility] Last Admin: 08/27/17 09:43 Dose: 1 mg Piperacillin Sod/Tazobactam (Sod 3.375 gm/ Sodium Chloride) 100 mls @ 200 mls/ hr IVPB Q8H [facility] Last Admin: 08/27/17 04:50 Dose: 200 mls/hr Ketorolac Tromethamine (Toradol) 30 mg IVP Q6H [facility] Last Admin: 08/27/17 08:17 Dose: 30 mg Lidocaine (Lidoderm) 1 ea TD DAILY [facility] Last Admin: 08/27/17 10:28 Dose: 1 ea Methadone HCl (Methadone) 20 mg PO DAILY [facility] Last Admin: 08/27/17 09:41 Dose: 20 mg Methadone HCl (Methadone) 10 mg PO DAILY [facility] Last Admin: 08/27/17 09:41 Dose: 10 mg Methadone HCl (Methadone) 5 mg PO DAILY [facility] Multivitamins (Hexavitamin) 1 tab PO DAILY [facility] Last Admin: 08/27/17 10:37 Dose: 1 tab Mupirocin (Bactroban Ointment) 0 gm TOP DAILY [facility] Last Admin: 08/27/17 10:26 Dose: Not Given Oxycodone/Acetaminophen (Percocet 5/325 Mg Tab) 1 tab PO Q4H PRN PRN Reason: pain Stop: 08/28/17 18:55 Last Admin: 08/27/17 12:56 Dose: 1 tab Saccharomyces Boulardii (Florastor) 250 mg PO BID [facility] Last Admin: 08/27/17 09:42 Dose: 250 mg Temazepam (Restoril) 30 mg PO HS PRN PRN Reason: Insomnia Last Admin: 08/24/17 00:23 Dose: 30 mg Thiamine HCl (Vitamin B1 Tab) 100 mg PO DAILY [facility] Last Admin: 08/27/17 09:42 Dose: 100 mg - Labs Labs: 08/26/17 08:13 08/26/17 08:13 PT 11.5 SECONDS (9.7-12.2) 08/23/17 07:15 INR 1.0 08/23/17 07:15 APTT 34 SECONDS (21-34) 08/23/17 07:15 - Constitutional Appears: Well - Head Exam Head Exam: ATRAUMATIC, NORMAL INSPECTION, NORMOCEPHALIC - Eye Exam Eye Exam: EOMI, Normal appearance, PERRL Pupil Exam: NORMAL ACCOMODATION, PERRL - ENT Exam ENT Exam: Mucous Membranes Moist, Normal Exam - Neck Exam Neck Exam: Full ROM, Normal Inspection. absent: Lymphadenopathy - Respiratory Exam Respiratory Exam: Decreased Breath Sounds - Cardiovascular Exam Cardiovascular Exam: REGULAR RHYTHM, +S1, +S2 - GI/Abdominal Exam GI & Abdominal Exam: Soft, Diminished Bowel Sounds - Rectal Exam Rectal Exam: Deferred Assessment and Plan (1) Foot ulcer, left Status: Acute (2) Osteomyelitis of toe of left foot Status: Acute (3) Prophylactic measure Status: Acute (4) Peripheral vascular disease Status: Chronic (5) Drug abuse Status: Acute (6) Opioid abuse with opioid-induced disorder Status: Chronic
--- NOTE | 2017-08-27 15:12 | CP.PCM.PN ---
Subjective - Date & Time of Evaluation Date of Evaluation: 08/27/17 Time of Evaluation: 09:00 - Subjective Subjective: wound at amp site healing to cont PO rx upon d/c Objective - Vital Signs/Intake and Output Vital Signs (last 24 hours): Temp Pulse Resp BP Pulse Ox 98.1 F 55 L 20 118/70 97 08/27/17 00:00 08/27/17 00:00 08/27/17 00:00 08/27/17 00:00 08/27/17 00:00 Intake and Output: 08/27/17 08/27/17 06:59 18:59 Intake Total 500 300 Output Total 500 300 Balance 0 0 - Medications Medications: Current Medications Acetaminophen (Tylenol 325mg Tab) 650 mg PO Q6 PRN PRN Reason: Pain, Mild (1-3) Enoxaparin Sodium (Lovenox) 40 mg SC DAILY [facility] Last Admin: 08/27/17 09:43 Dose: 40 mg Famotidine (Pepcid) 20 mg PO DAILY [facility] Last Admin: 08/27/17 09:43 Dose: 20 mg Folic Acid (Folic Acid) 1 mg PO DAILY [facility] Last Admin: 08/27/17 09:43 Dose: 1 mg Piperacillin Sod/Tazobactam (Sod 3.375 gm/ Sodium Chloride) 100 mls @ 200 mls/ hr IVPB Q8H [facility] Last Admin: 08/27/17 14:35 Dose: 200 mls/hr Ketorolac Tromethamine (Toradol) 30 mg IVP Q6H [facility] Last Admin: 08/27/17 14:35 Dose: 30 mg Lidocaine (Lidoderm) 1 ea TD DAILY [facility] Last Admin: 08/27/17 10:28 Dose: 1 ea Methadone HCl (Methadone) 20 mg PO DAILY [facility] Last Admin: 08/27/17 09:41 Dose: 20 mg Methadone HCl (Methadone) 10 mg PO DAILY [facility] Last Admin: 08/27/17 09:41 Dose: 10 mg Methadone HCl (Methadone) 5 mg PO DAILY [facility] Multivitamins (Hexavitamin) 1 tab PO DAILY [facility] Last Admin: 08/27/17 10:37 Dose: 1 tab Mupirocin (Bactroban Ointment) 0 gm TOP DAILY [facility] Last Admin: 08/27/17 10:26 Dose: Not Given Oxycodone/Acetaminophen (Percocet 5/325 Mg Tab) 1 tab PO Q4H PRN PRN Reason: pain Stop: 08/28/17 18:55 Last Admin: 08/27/17 12:56 Dose: 1 tab Saccharomyces Boulardii (Florastor) 250 mg PO BID [facility] Last Admin: 08/27/17 09:42 Dose: 250 mg Temazepam (Restoril) 30 mg PO HS PRN PRN Reason: Insomnia Last Admin: 08/24/17 00:23 Dose: 30 mg Thiamine HCl (Vitamin B1 Tab) 100 mg PO DAILY [facility] Last Admin: 08/27/17 09:42 Dose: 100 mg - Labs Labs: 08/26/17 08:13 08/26/17 08:13 PT 11.5 SECONDS (9.7-12.2) 08/23/17 07:15 INR 1.0 08/23/17 07:15 APTT 34 SECONDS (21-34) 08/23/17 07:15 - Constitutional Appears: Non-toxic, Chronically Ill - Head Exam Head Exam: NORMOCEPHALIC - Eye Exam Eye Exam: PERRL - ENT Exam ENT Exam: Mucous Membranes Dry - Neck Exam Neck Exam: absent: Lymphadenopathy - Respiratory Exam Respiratory Exam: Decreased Breath Sounds - Cardiovascular Exam Cardiovascular Exam: REGULAR RHYTHM - GI/Abdominal Exam GI & Abdominal Exam: Distended, Soft Assessment and Plan (1) Foot ulcer, left Status: Acute (2) Osteomyelitis of toe of left foot Status: Acute
--- NOTE | 2017-08-27 16:30 | CP.PCM.PN ---
Subjective - Date & Time of Evaluation Date of Evaluation: 08/27/17 Time of Evaluation: 16:30 Objective - Vital Signs/Intake and Output Vital Signs (last 24 hours): Temp Pulse Resp BP Pulse Ox 98.1 F 55 L 20 118/70 97 08/27/17 00:00 08/27/17 00:00 08/27/17 00:00 08/27/17 00:00 08/27/17 00:00 Intake and Output: 08/27/17 08/27/17 06:59 18:59 Intake Total 500 300 Output Total 500 300 Balance 0 0 - Medications Medications: Current Medications Acetaminophen (Tylenol 325mg Tab) 650 mg PO Q6 PRN PRN Reason: Pain, Mild (1-3) Enoxaparin Sodium (Lovenox) 40 mg SC DAILY [facility] Last Admin: 08/27/17 09:43 Dose: 40 mg Famotidine (Pepcid) 20 mg PO DAILY [facility] Last Admin: 08/27/17 09:43 Dose: 20 mg Folic Acid (Folic Acid) 1 mg PO DAILY [facility] Last Admin: 08/27/17 09:43 Dose: 1 mg Piperacillin Sod/Tazobactam (Sod 3.375 gm/ Sodium Chloride) 100 mls @ 200 mls/ hr IVPB Q8H [facility] Last Admin: 08/27/17 14:35 Dose: 200 mls/hr Ketorolac Tromethamine (Toradol) 30 mg IVP Q6H [facility] Last Admin: 08/27/17 14:35 Dose: 30 mg Lidocaine (Lidoderm) 1 ea TD DAILY [facility] Last Admin: 08/27/17 10:28 Dose: 1 ea Methadone HCl (Methadone) 20 mg PO DAILY [facility] Last Admin: 08/27/17 09:41 Dose: 20 mg Methadone HCl (Methadone) 10 mg PO DAILY [facility] Last Admin: 08/27/17 09:41 Dose: 10 mg Methadone HCl (Methadone) 5 mg PO DAILY [facility] Multivitamins (Hexavitamin) 1 tab PO DAILY [facility] Last Admin: 08/27/17 10:37 Dose: 1 tab Mupirocin (Bactroban Ointment) 0 gm TOP DAILY [facility] Last Admin: 08/27/17 10:26 Dose: Not Given Oxycodone/Acetaminophen (Percocet 5/325 Mg Tab) 1 tab PO Q4H PRN PRN Reason: pain Stop: 08/28/17 18:55 Last Admin: 08/27/17 12:56 Dose: 1 tab Saccharomyces Boulardii (Florastor) 250 mg PO BID [facility] Last Admin: 08/27/17 09:42 Dose: 250 mg Temazepam (Restoril) 30 mg PO HS PRN PRN Reason: Insomnia Last Admin: 08/24/17 00:23 Dose: 30 mg Thiamine HCl (Vitamin B1 Tab) 100 mg PO DAILY [facility] Last Admin: 08/27/17 09:42 Dose: 100 mg - Labs Labs: 08/26/17 08:13 08/26/17 08:13 PT 11.5 SECONDS (9.7-12.2) 08/23/17 07:15 INR 1.0 08/23/17 07:15 APTT 34 SECONDS (21-34) 08/23/17 07:15
--- NOTE | 2017-08-27 18:50 | PN ---
DATE: 08/27/2017 SUBJECTIVE: The patient is seen. The patient continues to improve clinically, tolerating the taper of methadone. Tomorrow, he will be medically stable to go for subacute rehab, possibly to [facility]. Not complaining of pain. The patient has been ambulating with a wheelchair, advised not to put weight on his left foot as the patient has history of recent surgery. PHYSICAL EXAMINATION: VITAL SIGNS: Temperature is 98.1, pulse rate 55, blood pressure 118/70, respirations 20, oxygen saturation is 97%. The patient is exhibiting no signs or symptoms of opiate withdrawal. REVIEW OF SYSTEMS: GENERAL: Alert, oriented x3, seen in his room, ambulating with a wheelchair. SKIN: No diaphoresis. HEENT: No headache or dizziness. NECK: Supple. RESPIRATORY: No dyspnea. CARDIOVASCULAR: No chest pain. GASTROINTESTINAL: Feeding well. No nausea or vomiting. EXTREMITIES: Complaining of mild pain on his left foot. MUSCULOSKELETAL: Improving. NEUROLOGIC: Alert and oriented x3. GENITOURINARY: No dysuria. MENTAL STATUS EXAMINATION: A middle-aged male who is very tall. The patient is about 6 feet 6 inches, 195 pounds. Mood is calm. Affect is reactive. Speech is spontaneous. Thought process is coherent. Thought content, no overt psychosis. No suicidal ideation. Attention and memory seem to be fair. Insight and judgement fair. Impulse control is fair. The patient is motivated to go for subacute rehab. IMPRESSION: History of polysubstance dependence, opiate dependence, opiate withdrawal, history of cocaine dependence, osteomyelitis of the second left toe in the left foot. PLAN AND RECOMMENDATIONS: The patient is seen and meds reviewed. Continue antibiotics as ordered. Continue Restoril p.r.n. as ordered. The patient is on methadone taper. The patient will be psych cleared to go to the subacute rehab tomorrow. The patient will be taking his last dose of methadone tomorrow. Olivier Abbott MD [facility]
[2017-08-28 01:39] VITALS: RESP 20
[2017-08-28] MEDS: Piperacillin/Tazobact 3.375 GM in Sodium Chloride 0.9% 100 ML IVPB SCH ×2 (05:08→13:37)
[2017-08-28] MEDS: Multiple Vitamins Tab PO SCH (10:19)
[2017-08-28] MEDS: Enoxaparin 40 mg Syringe SC SCH (10:19)
[2017-08-28] MEDS: Saccharomyces Boulardi 250 mg Cap PO SCH ×2 (10:44→17:17)
--- NOTE | 2017-08-28 11:14 | CP.PCM.PN ---
Subjective - Date & Time of Evaluation Date of Evaluation: 08/28/17 Time of Evaluation: 08:00 - Subjective Subjective: awake alert no fever IV rx in progress possible britney Objective - Vital Signs/Intake and Output Vital Signs (last 24 hours): Temp Pulse Resp BP Pulse Ox 97.8 F 59 L 20 100/63 97 08/28/17 08:51 08/28/17 08:51 08/28/17 08:51 08/28/17 08:51 08/28/17 08:51 Intake and Output: 08/28/17 08/28/17 06:59 18:59 Intake Total 500 Output Total 600 Balance -100 - Medications Medications: Current Medications Acetaminophen (Tylenol 325mg Tab) 650 mg PO Q6 PRN PRN Reason: Pain, Mild (1-3) Enoxaparin Sodium (Lovenox) 40 mg SC DAILY [facility] Last Admin: 08/28/17 10:19 Dose: 40 mg Famotidine (Pepcid) 20 mg PO DAILY [facility] Last Admin: 08/28/17 10:18 Dose: 20 mg Folic Acid (Folic Acid) 1 mg PO DAILY [facility] Last Admin: 08/28/17 10:18 Dose: 1 mg Piperacillin Sod/Tazobactam (Sod 3.375 gm/ Sodium Chloride) 100 mls @ 200 mls/ hr IVPB Q8H [facility] Last Admin: 08/28/17 05:08 Dose: 200 mls/hr Ketorolac Tromethamine (Toradol) 30 mg IVP Q6H [facility] Last Admin: 08/28/17 08:18 Dose: 30 mg Lidocaine (Lidoderm) 1 ea TD DAILY [facility] Last Admin: 08/27/17 10:28 Dose: 1 ea Methadone HCl (Methadone) 20 mg PO DAILY [facility] Last Admin: 08/28/17 10:18 Dose: 20 mg Methadone HCl (Methadone) 10 mg PO DAILY [facility] Last Admin: 08/28/17 10:19 Dose: 10 mg Methadone HCl (Methadone) 5 mg PO DAILY [facility] Last Admin: 08/28/17 10:19 Dose: 5 mg Multivitamins (Hexavitamin) 1 tab PO DAILY [facility] Last Admin: 08/28/17 10:19 Dose: 1 tab Mupirocin (Bactroban Ointment) 0 gm TOP DAILY [facility] Last Admin: 08/28/17 10:44 Dose: Not Given Oxycodone/Acetaminophen (Percocet 5/325 Mg Tab) 1 tab PO Q4H PRN PRN Reason: pain Stop: 08/28/17 18:55 Last Admin: 08/27/17 19:11 Dose: 1 tab Saccharomyces Boulardii (Florastor) 250 mg PO BID [facility] Last Admin: 08/28/17 10:44 Dose: 250 mg Temazepam (Restoril) 30 mg PO HS PRN PRN Reason: Insomnia Last Admin: 08/24/17 00:23 Dose: 30 mg Thiamine HCl (Vitamin B1 Tab) 100 mg PO DAILY [facility] Last Admin: 08/28/17 10:18 Dose: 100 mg - Labs Labs: 08/26/17 08:13 08/26/17 08:13 PT 11.5 SECONDS (9.7-12.2) 08/23/17 07:15 INR 1.0 08/23/17 07:15 APTT 34 SECONDS (21-34) 08/23/17 07:15 - Constitutional Appears: Non-toxic, Chronically Ill - Head Exam Head Exam: NORMOCEPHALIC - Eye Exam Eye Exam: PERRL - ENT Exam ENT Exam: Mucous Membranes Dry - Neck Exam Neck Exam: absent: Lymphadenopathy - Respiratory Exam Respiratory Exam: Decreased Breath Sounds - Cardiovascular Exam Cardiovascular Exam: REGULAR RHYTHM - GI/Abdominal Exam GI & Abdominal Exam: Distended, Soft Assessment and Plan (1) Foot ulcer, left Status: Acute (2) Osteomyelitis of toe of left foot Status: Acute
[2017-08-28 12:00] LABS: BASO # 0.1 K/uL (0.0-0.2); BASO % 0.7 % (0.0-2.0); EOS # 0.4 K/uL (0.0-0.7); EOS % 3.8 % (0.0-4.0); HEMOGLOBIN 13.2 g/dL (12.0-18.0); LYMPH # 2.5 K/uL (1.0-4.3); LYMPH % 25.2 % (20.0-40.0); MEAN CELL VOLUME 91.4 fL (80.0-94.0); MEAN CORPUSCULAR HEMOGLOBIN 30.3 pg (27.0-31.0); MEAN CORPUSCULAR HGB CONC 33.2 g/dL (33.0-37.0); MEAN PLATELET VOLUME 9.4 fL (7.2-11.7); MONO # 0.9 K/uL (0.0-0.8); MONO % 9.2 % (0.0-10.0); NEUT # 6.1 K/uL (1.8-7.0); NEUT % 61.1 % (50.0-75.0); NRBC % 0.1 % (0.0-2.0); RBC 4.36 Mil/uL (4.40-5.90); RED CELL DISTRIBUTION WIDTH 14.8 % (11.5-14.5); WHITE BLOOD COUNT 9.9 K/uL (4.8-10.8)
--- NOTE | 2017-08-28 12:08 | CP.PCM.PN ---
Subjective - Date & Time of Evaluation Date of Evaluation: 08/28/17 Time of Evaluation: 12:00 - Subjective Subjective: progress note- marisela alexis pt seen and examined at bedside. no acute distress. podiatry following. pt is s/ p toe amputation, discharge planning in progress. Objective - Vital Signs/Intake and Output Vital Signs (last 24 hours): Temp Pulse Resp BP Pulse Ox 97.8 F 59 L 20 100/63 97 08/28/17 08:51 08/28/17 08:51 08/28/17 08:51 08/28/17 08:51 08/28/17 08:51 Intake and Output: 08/28/17 08/28/17 06:59 18:59 Intake Total 500 Output Total 600 Balance -100 - Medications Medications: Current Medications Acetaminophen (Tylenol 325mg Tab) 650 mg PO Q6 PRN PRN Reason: Pain, Mild (1-3) Enoxaparin Sodium (Lovenox) 40 mg SC DAILY [facility] Last Admin: 08/28/17 10:19 Dose: 40 mg Famotidine (Pepcid) 20 mg PO DAILY [facility] Last Admin: 08/28/17 10:18 Dose: 20 mg Folic Acid (Folic Acid) 1 mg PO DAILY [facility] Last Admin: 08/28/17 10:18 Dose: 1 mg Piperacillin Sod/Tazobactam (Sod 3.375 gm/ Sodium Chloride) 100 mls @ 200 mls/ hr IVPB Q8H [facility] Last Admin: 08/28/17 05:08 Dose: 200 mls/hr Ketorolac Tromethamine (Toradol) 30 mg IVP Q6H [facility] Last Admin: 08/28/17 08:18 Dose: 30 mg Lidocaine (Lidoderm) 1 ea TD DAILY [facility] Last Admin: 08/27/17 10:28 Dose: 1 ea Methadone HCl (Methadone) 20 mg PO DAILY [facility] Last Admin: 08/28/17 10:18 Dose: 20 mg Methadone HCl (Methadone) 10 mg PO DAILY [facility] Last Admin: 08/28/17 10:19 Dose: 10 mg Methadone HCl (Methadone) 5 mg PO DAILY [facility] Last Admin: 08/28/17 10:19 Dose: 5 mg Multivitamins (Hexavitamin) 1 tab PO DAILY [facility] Last Admin: 08/28/17 10:19 Dose: 1 tab Mupirocin (Bactroban Ointment) 0 gm TOP DAILY [facility] Last Admin: 08/28/17 10:44 Dose: Not Given Oxycodone/Acetaminophen (Percocet 5/325 Mg Tab) 1 tab PO Q4H PRN PRN Reason: pain Stop: 08/28/17 18:55 Last Admin: 08/27/17 19:11 Dose: 1 tab Saccharomyces Boulardii (Florastor) 250 mg PO BID [facility] Last Admin: 08/28/17 10:44 Dose: 250 mg Temazepam (Restoril) 30 mg PO HS PRN PRN Reason: Insomnia Last Admin: 08/24/17 00:23 Dose: 30 mg Thiamine HCl (Vitamin B1 Tab) 100 mg PO DAILY [facility] Last Admin: 08/28/17 10:18 Dose: 100 mg - Labs Labs: 08/28/17 11:46 08/26/17 08:13 PT 11.5 SECONDS (9.7-12.2) 08/23/17 07:15 INR 1.0 08/23/17 07:15 APTT 34 SECONDS (21-34) 08/23/17 07:15 - Constitutional Appears: Non-toxic, No Acute Distress - Head Exam Head Exam: ATRAUMATIC, NORMAL INSPECTION, NORMOCEPHALIC - Eye Exam Eye Exam: EOMI - ENT Exam ENT Exam: Mucous Membranes Moist - Respiratory Exam Respiratory Exam: NORMAL BREATHING PATTERN. absent: Respiratory Distress - Cardiovascular Exam Cardiovascular Exam: +S1, +S2 - GI/Abdominal Exam GI & Abdominal Exam: Soft, Normal Bowel Sounds. absent: Tenderness - Extremities Exam Extremities Exam: absent: Full ROM, Normal Inspection Additional comments: bandaged foot with amputated toe - Back Exam Back Exam: NORMAL INSPECTION - Neurological Exam Neurological Exam: Alert, Awake, Oriented x3 - Psychiatric Exam Psychiatric exam: Normal Affect, Normal Mood - Skin Skin Exam: Dry, Intact, Normal Color, Warm Assessment and Plan - Assessment and Plan (Free Text) Assessment: this is a 52 yo male with 1. foot ulcer/osteomyelitis -id following -podiatry following -continue iv zosyn -blood cultures negative -foot culture positive corynebacterium -bone culture pending -continue tylenol for fever -continue florastor 2. hx of drug abuse -continue methadone taper -continue mvs -continue percocet for pain -continue folic acid -continue thiamine 3. gi/dvt ppx -continue pepcid daily -continue lovenox -pt needs outpt follow up for hep c dw dr alexis
[2017-08-28 12:20] LABS: ALBUMIN 3.6 g/dL (3.5-5.0); ALT/SGPT 159 U/L (21-72); AST/SGOT 80 U/L (17-59); BLOOD UREA NITROGEN 32 mg/dL (9-20); CALCIUM 8.7 mg/dl (8.6-10.4); GFR AFRICAN-AMERICAN > 60; GFR NON-AFRICAN AMERICAN > 60
[2017-08-28] MEDS: Lidocaine 5% Patch TD SCH (14:01)
--- NOTE | 2017-08-28 14:05 | CP.PCM.PN ---
Subjective - Date & Time of Evaluation Date of Evaluation: 08/28/17 Time of Evaluation: 14:05 Objective - Vital Signs/Intake and Output Vital Signs (last 24 hours): Temp Pulse Resp BP Pulse Ox 97.8 F 59 L 20 100/63 97 08/28/17 08:51 08/28/17 12:27 08/28/17 08:51 08/28/17 08:51 08/28/17 12:27 Intake and Output: 08/28/17 08/28/17 06:59 18:59 Intake Total 500 Output Total 600 Balance -100 - Medications Medications: Current Medications Acetaminophen (Tylenol 325mg Tab) 650 mg PO Q6 PRN PRN Reason: Pain, Mild (1-3) Enoxaparin Sodium (Lovenox) 40 mg SC DAILY [facility] Last Admin: 08/28/17 10:19 Dose: 40 mg Famotidine (Pepcid) 20 mg PO DAILY [facility] Last Admin: 08/28/17 10:18 Dose: 20 mg Folic Acid (Folic Acid) 1 mg PO DAILY [facility] Last Admin: 08/28/17 10:18 Dose: 1 mg Piperacillin Sod/Tazobactam (Sod 3.375 gm/ Sodium Chloride) 100 mls @ 200 mls/ hr IVPB Q8H [facility] Last Admin: 08/28/17 13:37 Dose: 200 mls/hr Ketorolac Tromethamine (Toradol) 30 mg IVP Q6H [facility] Last Admin: 08/28/17 13:36 Dose: 30 mg Lidocaine (Lidoderm) 1 ea TD DAILY [facility] Last Admin: 08/28/17 14:01 Dose: 1 ea Multivitamins (Hexavitamin) 1 tab PO DAILY [facility] Last Admin: 08/28/17 10:19 Dose: 1 tab Mupirocin (Bactroban Ointment) 0 gm TOP DAILY [facility] Last Admin: 08/28/17 10:44 Dose: Not Given Oxycodone/Acetaminophen (Percocet 5/325 Mg Tab) 1 tab PO Q4H PRN PRN Reason: pain Stop: 08/28/17 18:55 Last Admin: 08/27/17 19:11 Dose: 1 tab Saccharomyces Boulardii (Florastor) 250 mg PO BID [facility] Last Admin: 08/28/17 10:44 Dose: 250 mg Temazepam (Restoril) 30 mg PO HS PRN PRN Reason: Insomnia Last Admin: 08/24/17 00:23 Dose: 30 mg Thiamine HCl (Vitamin B1 Tab) 100 mg PO DAILY [facility] Last Admin: 08/28/17 10:18 Dose: 100 mg - Labs Labs: 08/28/17 11:46 08/28/17 11:46 PT 11.5 SECONDS (9.7-12.2) 08/23/17 07:15 INR 1.0 08/23/17 07:15 APTT 34 SECONDS (21-34) 08/23/17 07:15
[2017-08-28] MEDS: Oxycodone/Acetaminophen 5/325 mg Tab PO PRN (16:14)
[2017-08-28 16:30] VITALS: BP 100/62; PULSE 54; TEMP 97.7; O2SAT 95
--- NOTE | 2017-08-28 17:45 | CP.PCM.PN ---
Subjective - Date & Time of Evaluation Date of Evaluation: 08/28/17 Time of Evaluation: 17:00 - Subjective Subjective: 52 y/o male seen at bedside 4 days s/p left 2nd digit amputation. Pt says the pain is well controlled. Pt says his dressing has remained clean, dry and intact. Denies F/C/N/V/CP/SOB. Objective - Vital Signs/Intake and Output Vital Signs (last 24 hours): Temp Pulse Resp BP Pulse Ox 97.7 F 54 L 20 100/62 95 08/28/17 16:28 08/28/17 16:28 08/28/17 16:28 08/28/17 16:28 08/28/17 16:28 Intake and Output: 08/28/17 08/28/17 06:59 18:59 Intake Total 500 600 Output Total 600 Balance -100 600 - Medications Medications: Current Medications Acetaminophen (Tylenol 325mg Tab) 650 mg PO Q6 PRN PRN Reason: Pain, Mild (1-3) Enoxaparin Sodium (Lovenox) 40 mg SC DAILY [facility] Last Admin: 08/28/17 10:19 Dose: 40 mg Famotidine (Pepcid) 20 mg PO DAILY [facility] Last Admin: 08/28/17 10:18 Dose: 20 mg Folic Acid (Folic Acid) 1 mg PO DAILY [facility] Last Admin: 08/28/17 10:18 Dose: 1 mg Piperacillin Sod/Tazobactam (Sod 3.375 gm/ Sodium Chloride) 100 mls @ 200 mls/ hr IVPB Q8H [facility] Last Admin: 08/28/17 13:37 Dose: 200 mls/hr Ketorolac Tromethamine (Toradol) 30 mg IVP Q6H [facility] Last Admin: 08/28/17 13:36 Dose: 30 mg Lidocaine (Lidoderm) 1 ea TD DAILY [facility] Last Admin: 08/28/17 14:01 Dose: 1 ea Multivitamins (Hexavitamin) 1 tab PO DAILY [facility] Last Admin: 08/28/17 10:19 Dose: 1 tab Mupirocin (Bactroban Ointment) 0 gm TOP DAILY [facility] Last Admin: 08/28/17 10:44 Dose: Not Given Oxycodone/Acetaminophen (Percocet 5/325 Mg Tab) 1 tab PO Q4H PRN PRN Reason: pain Stop: 08/28/17 18:55 Last Admin: 08/28/17 16:14 Dose: 1 tab Saccharomyces Boulardii (Florastor) 250 mg PO BID [facility] Last Admin: 08/28/17 17:17 Dose: 250 mg Temazepam (Restoril) 30 mg PO HS PRN PRN Reason: Insomnia Last Admin: 08/24/17 00:23 Dose: 30 mg Thiamine HCl (Vitamin B1 Tab) 100 mg PO DAILY [facility] Last Admin: 08/28/17 10:18 Dose: 100 mg - Labs Labs: 08/28/17 11:46 08/28/17 11:46 PT 11.5 SECONDS (9.7-12.2) 08/23/17 07:15 INR 1.0 08/23/17 07:15 APTT 34 SECONDS (21-34) 08/23/17 07:15 - Constitutional Appears: Well, Non-toxic, No Acute Distress - Extremities Exam Additional comments: Left lower extremity focused exam: Derm: Left 2nd digit amputation note noted. All sutures are intact, no active drainage. No signs of dehiscence. Skin edges are well-coapted. Site is warm to touch and mildly erythematous. Vasc: DP and PT 2/4 bilaterally, CFT < 3 seconds to the digits. Ortho: Moderate tenderness to palpation with palpation to the entire 2nd digit at surgical site and mild pain to the 3rd digit Neuro: Gross protective sensation diminished - Neurological Exam Neurological Exam: Alert, Awake, Oriented x3 - Psychiatric Exam Psychiatric exam: Normal Affect, Normal Mood Assessment and Plan - Assessment and Plan (Free Text) Assessment: 52 y/o male 4 days s/p left 2nd digit partial amputation secondary to osteomyelitis Plan: Patient examined and evaluated Discussed with attending Dr. Croft Labs, charts, vitals reviewed (afebrile, absent leukocytosis) OR bone pathology results reviewed. Upon discharge ID recommendations of transition to PO antibiotics reviewed. Cleansed surgical site with saline and dressed left foot with bactroban, DSD Pt to remain full weightbearing as tolerated Continue current pain regimen as ordered Pt is stable from podiatry standpoint, awaiting placement and transfer to [facility] facility. Podiatry will continue to follow while in house
--- NOTE | 2017-08-28 17:55 | PN ---
DATE: 08/28/2017 SUBJECTIVE: The patient completed his methadone detox. The patient is stable to go for subacute rehab once a bed is available and also he will be going for IV antibiotics. Behavior hooper, the patient is manageable. The patient is only taking Restoril, the patient does have bedtime p.r.n. and also he is on antibiotics. REVIEW OF SYSTEMS: GENERAL: He is alert and oriented x3, ambulating with a wheelchair. Not complaining of pain. The patient is eager to go for subacute rehab. SKIN: No diaphoresis. HEENT: No headache or dizziness. NECK: Supple. RESPIRATORY: No dyspnea. CARDIOVASCULAR: No chest pain. GASTROINTESTINAL: The patient is eating well. EXTREMITIES: Not complaining of pain. MUSCULOSKELETAL: Weakness improving. NEUROLOGIC: Alert and oriented x3. GENITOURINARY: No dysuria. PHYSICAL EXAMINATION: VITAL SIGNS: Temperature 97.8, pulse 59, blood pressure 100/62, respirations 20, oxygen saturation is 97%. MENTAL STATUS EXAMINATION: A middle-aged male who is very tall. Alert and oriented x3. Mood is calm. Affect is reactive. Speech is spontaneous. Thought process, the patient is willing to go for subacute rehab for IV antibiotics. No psychosis. No suicidal or homicidal ideation. The patient is not exhibiting signs and symptoms of opiate withdrawal at this time. Thought content, as stated, no psychosis. No suicidal or homicidal ideation. Attention and memory seems to be fair. Insight and judgment is fair. Impulse control is fair. IMPRESSION: History of polysubstance dependence, cocaine; history of opiate withdrawal, opiate dependence; cellulitis of the left foot, on antibiotics. PLAN/RECOMMENDATIONS: The patient is seen, medications reviewed. The patient is off methadone today. The patient can go for subacute rehab once a bed is available. He may continue taking his pain meds, the oxycodone one tab q.4 p.r.n. and the temazepam 30 mg p.o. at bedtime p.r.n. The patient with history of opiate dependence, usually has sleeping problems once they have been taking off opiates. The patient may need to sleep, especially with his condition. Olivier Abbott MD
== END 2017-08-28 18:41 | DRG 240 ==
LOC: C.ER 15:43 → C.9E 18:39 → C.3T 23:45
PROVIDERS: ADMIT Internal Medicine Nephrology; ATTEND Internal Medicine Nephrology
PROC: 0Y6N0ZB Detachment at Left Foot, Partial 2nd Ray, Open Approach (ICD-10-PCS; principal; 2017-08-24 07:45)
DX: E11.52 Type 2 diabetes mellitus with diabetic peripheral angiopathy with gangrene (principal); E11.621 Type 2 diabetes mellitus with foot ulcer; M86.172 Other acute osteomyelitis, left ankle and foot; F33.1 Major depressive disorder, recurrent, moderate; F11.23 Opioid dependence with withdrawal; L03.116 Cellulitis of left lower limb; E11.69 Type 2 diabetes mellitus with other specified complication; L89.891 Pressure ulcer of other site, stage 1; L97.524 Non-pressure chronic ulcer of other part of left foot with necrosis of bone; E78.5 Hyperlipidemia, unspecified; F10.21 Alcohol dependence, in remission; F14.90 Cocaine use, unspecified, uncomplicated; F17.210 Nicotine dependence, cigarettes, uncomplicated; G89.29 Other chronic pain; I10 Essential (primary) hypertension; Z59.0 Homelessness; Z96.643 Presence of artificial hip joint, bilateral; F41.9 Anxiety disorder, unspecified; B19.20 Unspecified viral hepatitis C without hepatic coma